=== PATIENT | female | born 1945 | race Caucasian/White ===

== ENCOUNTER → 2018-04-06 12:09 | Outpatient (CLI) | payer MEDICARE, OTHER, SELFPAY ==
[2018-04-06 14:54] LABS: Add Manual Diff / Slide Review NO; Basophils Percent Auto 0.8 % (0-2); Eosinophils Percent Auto 2.2 % (2-4); Hematocrit 41.2 % (36-46); Hemoglobin 14.1 g/dL (12.0-16.0); Mean Corpuscular HGB Conc 34.2 % (30-36); Mean Corpuscular Hemoglobin 32.2 PG (26-34); Monocytes Percent Auto 6.5 % (3-14); Neutrophils Absolute Auto 5600 /uL (3000-5900); Neutrophils Percent Auto 74.5 % (50-75); Platelet Count 249 X10^3/uL (150-400); Red Blood Cell Count 4.38 X10^6/uL (4.0-5.2); Red Cell Distribution Width 13.4 % (11.6-14.8); White Blood Cell Count 7.5 X10^3/uL (4.5-11.0)
[2018-04-06 15:55] LABS: TSH w/ Reflex to FT4 2.33 uIU/mL (0.47-4.68)
== END ==
PROVIDERS: Family Provider Internal Medicine; PCP Internal Medicine; Visit Provider Internal Medicine
DX: I10 Essential (primary) hypertension (principal); E78.5 Hyperlipidemia, unspecified; R60.9 Edema, unspecified
CPT/HCPCS: 36415; 84443; 85025; 85027

== ENCOUNTER → 2018-07-21 09:29 | Outpatient (CLI) | payer MEDICARE, OTHER, SELFPAY ==
--- NOTE | 2018-07-21 | DI.MG.S_ITS ---
BILATERAL DIGITAL SCREENING MAMMOGRAM 3D/2D WITH CAD: 07/21/2018 CLINICAL: Routine screening. Family history of breast cancer. Comparison is made to exams dated: 07/09/2017 mammogram, 06/17/2016 mammogram, and 06/12/2015 mammogram - [facility]. There are scattered fibroglandular elements in both breasts. Current study was also evaluated with a Computer Aided Detection (CAD) system. There is a mole marker on both breasts. There is a linear scar marker on the left breast. No significant masses, calcifications, or other findings are seen in either breast. There has been no significant interval change. IMPRESSION: NEGATIVE There is no mammographic evidence of malignancy. A 1 year screening mammogram is recommended. This exam was interpreted at Station ID: [id number]. NOTE: For mammograms, a report in lay terms will be sent to the patient. Approximately 15% of breast malignancies will not be visualized mammographically. In the management of a palpable breast mass, a negative mammogram must not discourage biopsy of a clinically suspicious lesion. Electronically Signed By: Nilton Godinez M.D. ecl/:07/21/2018 19:03:26 letter sent: Normal Exam ACR BI-RADS Category 1: Negative [id number]
== END ==
PROVIDERS: Family Provider Internal Medicine; PCP Internal Medicine; Visit Provider Internal Medicine
DX: Z12.31 Encounter for screening mammogram for malignant neoplasm of breast (principal); Z80.3 Family history of malignant neoplasm of breast
CPT/HCPCS: 77063; 77067

== ENCOUNTER → 2018-10-29 09:46 | Outpatient (CLI) | payer MEDICARE, OTHER, SELFPAY ==
--- NOTE | 2018-10-29 09:49 | DI.RAD.S_ITS ---
PROCEDURE: XR LUMBAR SPINE MIN 4V INDICATIONS: Lumbosacral spondylosis bilateral L4-5 L5-S1 facets TECHNIQUE: 5 views of the lumbar spine were acquired. COMPARISON: [facility], , -SPINE 2-3 VIEWS, 03/17/2012, 11:12. FINDINGS: Bones: 5 nonrib-bearing vertebrae are present. There is there is trace retrolisthesis of L1 on L2, L2 on L3. Moderate disc space narrowing is present at L5-S1 with foraminal narrowing at this level. Multilevel mild to moderate disc space narrowing is present throughout the lumbar spine. No vertebral body compression fractures. No suspicious bony lesions. Soft tissues: Overlying bowel gas pattern is normal. No suspicious soft tissue calcifications. Oblique images: No pars defects. IMPRESSION: Multilevel degenerative changes most severe at L5-S1, relatively stable compared to prior exam. Dictated by: Gely Reese M.D. on 10/29/2018 at 11:22 Approved by: Gely Reese M.D. on 10/29/2018 at 11:24
== END ==
PROVIDERS: Family Provider Internal Medicine; PCP Internal Medicine; Visit Provider Physical Medicine & Rehabilitation
DX: M47.27 Other spondylosis with radiculopathy, lumbosacral region (principal); M47.26 Other spondylosis with radiculopathy, lumbar region
CPT/HCPCS: 72110; 99214

== ENCOUNTER 2018-11-10 12:54 | Outpatient (CLI) | payer MEDICARE, OTHER, SELFPAY ==
[2018-11-10] VITALS (9 sets, daily range): BP systolic 162–211; BP diastolic 71–107; PULSE 61–77; RESP 16–18; TEMP 36.3; O2SAT 95–100
--- NOTE | 2018-11-10 | DI.RAD.S_ITS ---
PROCEDURE: PAIN L/S FACET INJ/BLK 1ST JOSE DAVID COMPARISON: None. INDICATIONS: Lumbosacral spondylosis FINDINGS: Fluoroscopic spot filming was performed to verify placement of spinal needles at the L4-L5 and L5-S1 level(s), as labeled on the films. Appropriate location(s) of the needle tip(s) was confirmed by injection of iodinated contrast. Dictated by: Dajuan Oates M.D. on 11/10/2018 at 14:58 Approved by: Dajuan Oates M.D. on 11/10/2018 at 15:04
--- NOTE | 2018-11-10 13:55 | PC.NURSE ---
NOTIFIED DR. ARENAS OF HIGH BP 211/105, STATED TO GIVE VERSED AND CONTINUE WITH PROCEDURE.
[2018-11-10] MEDS: MIDAZOLAM 5 MG/5 ML VIAL IV (13:56)
[2018-11-10] MEDS: BUPIVACAINE 0.5% (PF) VIAL 2 ML INJ (14:03)
[2018-11-10] MEDS: LIDOCAINE 1% 20 ML INJ 10 ML INJ (14:03)
[2018-11-10] MEDS: IOPAMIDOL 15 ML VIAL 3 ML INJ (14:03)
[2018-11-10] MEDS: BETAMETHASONE 30 MG/5 ML MDV 12 MG INJ (14:04)
--- NOTE | 2018-11-10 14:11 | PC.NURSE ---
ASSISTING PT OFF TABLE AND TRANSPORTING TO POST PROC AREA IN STABLE CONDITION
--- NOTE | 2018-11-10 14:17 | P.PCN_ITS ---
Procedures Date/Time Date of procedure: 11/10/18 Time of procedure: 14:17 General Procedure description: PREOP DIAGNOSIS 1. FACET ARTHROPATHY 2. AXIAL LBP 3. MULTILEVEL DDD POST OP DIAGNOSIS 1. FACET ARTHROPATHY 2. AXIAL LBP 3. MULTILEVEL DDD PROCEDURES 1. FLUORSCOPICALLY GUIDED CONTRAST CONTROLLED FACET JOINT INJECTIONS BILATERAL L4/5, L5/S1 PHYSICIAN: Dayday Fofana, DO INDICATIONS Aline is referred by Dr. Comer for treatment of Axial LBP FINDINGS Multilevel Facet Arthropathy with Clinically significant axial LBP DESCRIPTION OF PROCEDURE Fluoroscopically guided, contrast-controlled bilateral L4/5, L5/S1 facet joint injections. Following denial of allergy and review of potential side effects and complications, including, but not necessarily limited to, infection, allergic reaction, local tissue breakdown, stroke, temporary or permanent nerve injury, paralysis, and possible , the patient indicated that the patient understood and agreed to proceed. An informed consent document was signed by the patient, witnessed by a nurse, and placed in the patient's chart. Additionally, other treatment options including medications, modalities, and physical therapy were reviewed with the patient. After review of previous anaesthesic history and IV conscious sedation the patient was deemed safe to proceed with todays procedure with IV conscious sedation as ASA class II designation. Safety time-out was performed to confirm patient ID, procedure to be performed and site of procedure. IV sedation was accomplished with a combination of 5mg of Versed was administered by the RN after DO order, titrated to patient comfort during the course of the procedure while the patient remained responsive to all verbal commands In the prone position, following sterile prep and drape of the lumbar region, the posterior aspect of the L4/5, L5/S1 facet joints were identified fluoroscopically. The skin was anesthetized via a 25-gauge 1.5-inch needle with 1% lidocaine solution into the corresponding facet joints. At this point, a 22- gauge 3.5-inch spinal needle was atraumatically introduced and advanced under fluoroscopic guidance into the corresponding facet joints. Following negative aspiration, injections of approximately 0.2-cc of Isovue 200 confirmed interarticular placement without vascular uptake. The identical procedure was then performed at the L4/5, L5/S1 facet joints on the left. Radiological data, including multiple fluoroscopic views of the lumbosacral spine, reveal a spinal needle at the L4/5, L5/S1 facet joints bilaterally. Subsequent views show flow of contrast material both superiorly and inferiorly within the joint space without vascular or intrathecal uptake. At this point, a total of 0.5 cc including a mixture of 0.25cc Marcaine and 0.25cc betamethasone was injected without complication into each of the corresponding facet joints. The patient tolerated the procedure well without signs or symptoms of complications prior to transfer to the recovery area continued monitoring without incident. The patient was then transferred to the recovery area where they were observed for an appropriate period of time after the injection. The patient reported a VAS score of 7 prior to the procedure and a post- procedure VAS of 0. Total Fluoroscopy Time: 20.3 seconds Total Conscious Sedation Time: 24min POST OP INSTRUCTIONS The patient was provided a Pain Log to continue to record their response to the target-specific procedure prior to follow-up visit with their referring physician. Additionally, specific post-injection care instructions and a contact number to our office were provided if concerns arise regarding possible complications associated with the procedure are suspected. Dayday Fofana, Complications: none
--- NOTE | 2018-11-10 15:26 | PC.NURSE ---
pt returned from post procedure via wheelchair and able to get from w/c to chair with standby assist. Resumed monitoring from Rehana AVILEZ.
--- NOTE | 2018-11-11 15:29 | PC.NURSE ---
FOLLOW UP CALL MADE, PT STATES SHE I FEEL GREAT! PT DENIES QUESTIONS/CONCERNS.
== END 2018-11-10 14:41 ==
LOC: RAD 12:58
PROVIDERS: PCP Internal Medicine; Visit Provider Physical Medicine & Rehabilitation
DX: M47.816 Spondylosis without myelopathy or radiculopathy, lumbar region (principal); M47.817 Spondylosis without myelopathy or radiculopathy, lumbosacral region; M54.5 Low back pain; M51.36 Other intervertebral disc degeneration, lumbar region; M51.37 Other intervertebral disc degeneration, lumbosacral region
CPT/HCPCS: 64493; 64494; 99152; J0702; J2250; J3010

== ENCOUNTER 2018-12-07 16:03 | Emergency (ER) | payer MEDICARE, OTHER, SELFPAY ==
--- NOTE | 2018-12-07 16:08 | ED_ITS ---
HPI - Back Pain/Injury General Chief Complaint: Back Pain/Injury Stated Complaint: Low back pain Time Seen by Provider: 12/07/18 16:07 Source: patient Mode of arrival: EMS Limitations: no limitations History of Present Illness HPI Narrative: 73-year-old female with a history of hypertension longstanding history of lower back pain here for evaluation of worsening of her lower back pain. Approximately 1 month ago she underwent lumbar steroid injection. She states that afterwards she felt very well however approximately 1 week ago started having sharp pain in her lower back. She states that this morning she was feeling very well and she laid down to take a nap. She states that she was unable to get up secondary to the pain. She called EMS to help her up. She was brought in here to the emergency department for evaluation. She states that this type of scenario is not new for her. She states she normally sleeps sitting in a chair because she cannot get from a laying to sitting because of the pain. She was able to get up into the gurney by herself here in the emergency department. Was able to ambulate to the bathroom. States she is feeling much better. No urinary symptoms. No saddle anesthesia. Related Data Home Medications Medication Instructions Recorded Confirmed ASPIRIN (Aspirin Low Dose) 81 mg PO #0 09/09/07 09/18/18 ASCORBIC ACID (VITAMIN C) 500 mg PO Q DAY #0 05/03/11 09/18/18 biotin 1 cap PO QDAY #0 09/04/17 09/18/18 cholecalciferol (vitamin D3) 1 tab PO QDAY #0 09/04/17 09/18/18 [Vitamin D3] omega 4-zog-zay-fish oil [Fish Oil] 1 cap PO QDAY #0 09/04/17 09/18/18 esomeprazole magnesium 20 mg 20 mg PO DAILY 07/17/18 09/18/18 capsule,delayed release Disabled Parking Permit 1 ea MISCELLANEOUS DIRECTED 12/07/18 12/07/18 metoprolol succinate 100 mg PO DAILY 12/07/18 12/07/18 olmesartan 40 mg PO DAILY 12/07/18 12/07/18 potassium chloride 10 meq PO DAILY 12/07/18 12/07/18 Previous Rx's Medication Instructions Recorded furosemide 20 mg tablet 20 mg PO QAM #90 tab 04/06/18 celecoxib 200 mg capsule 200 mg PO DAILY #30 cap 02/28/19 acetaminophen-codeine 1 tab PO Q8H PRN #14 tab 12/07/18 [Tylenol-Codeine #3] Allergies Allergy/AdvReac Type Severity Reaction Status Date / Time chlorhexidine [CHLORHEXIDINE] Allergy Mild rash Verified 11/10/18 13:49 THIAGO Inhibitors Allergy Unknown COUGH Verified 11/10/18 13:49 [THIAGO INHIBITORS] ibuprofen [IBUPROFEN] Allergy Unknown EDEMA Verified 11/10/18 13:49 hydrochlorothiazide AdvReac Intermediate hyponatremi Verified 11/10/18 13:49 [HYDROCHLOROTHIAZIDE] a nisoldipine [NISOLDIPINE] AdvReac Intermediate joint pain Verified 11/10/18 13:49 Review of Systems Genitourinary Denies urinary incontinence, Denies urinary hesitancy and Denies urinary urgency Comments: No saddle anesthesia Musculoskeletal Reports back pain Neurologic Comments: Some tingling in her feet Hematologic/Lymphatic Denies easy bleeding and Denies easy bruising [facility] Medical History Essential hypertension (Chronic 06/09/15) Hyperlipidemia (Chronic 04/24/11) 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) Hayfever (Chronic 1969) Chronic cough (Chronic 1990) Peripheral edema (Chronic 07/04/16) Dorsalgia (Chronic 06/14/16) Body mass index (BMI) of 40.1 to 44.9 in adult (Chronic 11/29/16) Morbid obesity due to excess calories (Chronic 11/29/16) Abnormal CXR (chest x-ray) (Resolved 1985) Chicken pox (Resolved) Measles (Resolved) Mumps (Resolved) Rubella (Resolved) Social History marital status: number of children: 2 household members: spouse lives independently: Yes caregiver/support person: No housing: house pets and animals: Yes education level: other occupational status: other Previous occupational history: Teacher rito/uatsdin: [employer] leisure activities: other Smoking Status: Former smoker Tobacco: How many years used: 10 Smokeless tobacco user: other quit status: quit date established second hand exposure: No alcohol intake: current substance use type: does not use Exam Initial Vital Signs Initial Vital Signs: Vital Signs Temperature 98.5 F 12/07/18 16:10 Pulse Rate 70 12/07/18 16:10 Respiratory Rate 18 12/07/18 16:10 Blood Pressure 210/88 H 12/07/18 16:10 Pulse Oximetry 98 12/07/18 16:10 Const General: cooperative, comfortable, well developed, well groomed and No acute distress Orientation: alert, awake and oriented x3 HENMT Head: normal to inspection and normocephalic Resp Effort & Inspection: normal respiratory effort Cardio Rate: regular rate Skin Rashes: no rashes Neuro Cognition: normal cognition Speech: speech normal Gait: other (Was able to walk however needed a cane. This is not new for her.) Extrem General: edema (This is not new for her.) Psych Appearance: grossly normal and well kempt Course Orders Ordered: Discontinued Medications Acetaminophen/Codeine Phosphate (Tylenol #3) 1 tab PO NOW ONE Stop: 12/07/18 17:02 Vital Signs - 8 hr 12/07/18 16:10 Temperature 98.5 F Pulse Rate 70 Respiratory Rate 18 Blood Pressure 210/88 H Pulse Oximetry 98 MDM - Back Pain/Injury MDM Narrative Medical decision making narrative: Patient states that she feels better after being here in the emergency department. She is not currently on any oral pain medication. She did take an Aleve this morning. Will send home some Tylenol 3. It seems that what happened to her earlier today with lying down and then sitting up is what happens to her every time she is lying down. She states that she was feeling better this morning and that is why she laid down to take a nap. I have low suspicion for fracture, cauda equina, metastasis, AAA. Will hold off further workup for now. They are given return precautions. They expressed understanding and agreement with plan. Discharge Plan Departure Patient Disposition: Home Clinical Impression: Chronic lower back pain Qualifiers: Back pain laterality: unspecified Sciatica presence: without sciatica Qualified Code(s): M54.5 - Low back pain Instructions: DI for Low Back Pain Activity Restrictions/Additional Instructions: Take all of her medication as needed. Contact your spine provider to schedule a follow-up. Return to the emergency department for any new or worsening symptoms Prescriptions: New acetaminophen-codeine [Tylenol-Codeine #3] 300-30 mg tablet 1 tab PO Q8H PRN (Reason: pain) Qty: 14 RF: 0 No Action ASPIRIN (Aspirin Low Dose) 81 mg PO Qty: 0 RF: 0 ASCORBIC ACID (VITAMIN C) 500 mg PO Q DAY Qty: 0 RF: 0 biotin 1 mg Capsule 1 cap PO QDAY Qty: 0 RF: 0 cholecalciferol (vitamin D3) [Vitamin D3] 1,000 unit Tablet 1 tab PO QDAY Qty: 0 RF: 0 omega 4-epk-bwz-fish oil [Fish Oil] 1,000 mg (120 mg-180 mg) Capsule 1 cap PO QDAY Qty: 0 RF: 0 esomeprazole magnesium [Nexium] 20 mg capsule,delayed release(DR/EC) 20 mg PO DAILY RF: 0 furosemide 20 mg tablet 20 mg PO QAM Qty: 90 RF: 3 potassium chloride 10 mEq capsule, extended release 10 meq PO DAILY RF: 0 metoprolol succinate 100 mg tablet extended release 24 hr 100 mg PO DAILY RF: 0 olmesartan 40 mg tablet 40 mg PO DAILY RF: 0 Disabled Parking Permit 1 ea miscellaneous DIRECTED RF: 0 celecoxib [Celebrex] 200 mg capsule 200 mg PO DAILY Qty: 30 RF: 2 Referrals: Dario Comer MD [Primary Care Provider] -
[2018-12-07 16:10] VITALS: BP 210/88; PULSE 70; RESP 18; TEMP 36.9; O2SAT 98; BMI 23.3
== END 2018-12-07 17:49 | disposition home or self-care (01) ==
PROVIDERS: Emergency Provider Emergency Medicine; PCP Internal Medicine
DX: M54.5 Low back pain (principal)
CPT/HCPCS: 99282

== ENCOUNTER → 2019-01-05 11:23 | Outpatient (CLI) | payer MEDICARE, OTHER, SELFPAY ==
--- NOTE | 2019-01-05 11:25 | DI.MRI.S_ITS ---
PROCEDURE: MR LUMBAR SPINE WO CON INDICATIONS: The patient gives a history of spinal stenosis. TECHNIQUE: Noncontrast sagittal T1 spin echo and T2 fast echo, sagittal STIR, axial T1 and T2 fast spin echo through the lumbar spine. In cases with scoliosis, additional coronal T2 fast spin echo may be performed. COMPARISON: [facility], MR, L-SPINE WITHOUT CONTRAST, 12/12/2015, 14:23. [facility], CR, XR LUMBAR SPINE MIN 4V, 10/29/2018, 9:48. FINDINGS: Image quality: Excellent. Alignment and Curvature: There is normal bony alignment. Bone Marrow: Marrow is of normal overall signal. No acute vertebral body compression fractures. Spinal Cord: Conus medullaris terminates at the T12-L1 level. Visualized cord demonstrates normal signal and size. Paraspinous Soft Tissues: No paravertebral masses. T12-L1: Normal appearance. L1-L2: The disc height is well-preserved. Loss of disc signal is seen at this level. No significant neural foraminal or central canal narrowing can be seen. Stable from the prior study. L2-L3: The disc height and disc signal are relatively well-preserved. Mild generalized disc bulge is seen. No significant neural foraminal or central canal narrowing can be seen. No significant change from the prior. L3-L4: Mild loss of disc height is seen. Loss of disc signal is seen. Mild generalized disc bulge is seen. Mild facet joint hypertrophy is seen. No significant neural foraminal or central canal narrowing can be seen. No significant change from the prior. L4-L5: The disc height is well-preserved. Loss of disc signal is seen at this level. Mild to moderate disc bulge is seen, which is eccentric to the right. There is moderate left-sided and moderate to severe right-sided facet hypertrophy seen. Minimal bilateral neural foraminal narrowing is seen. Mild central canal narrowing is seen. Stable from the prior study. L5-S1: The disc height is well-preserved. Loss of disc signal is seen at this level. No significant disc bulge is seen. [id number] facet hypertrophy is seen. No neural foraminal narrowing is seen. No central canal narrowing. No significant change from the prior. IMPRESSION: Multiple levels of lumbar spine degenerative change are seen, which are stable compared to 2016. Dictated by: Parker Bell M.D. on 01/05/2019 at 14:27 Approved by: Parker Bell M.D. on 01/05/2019 at 14:34
== END ==
PROVIDERS: PCP Internal Medicine; Visit Provider Physical Medicine & Rehabilitation
DX: M48.061 Spinal stenosis, lumbar region without neurogenic claudication (principal); M47.26 Other spondylosis with radiculopathy, lumbar region; M47.27 Other spondylosis with radiculopathy, lumbosacral region
CPT/HCPCS: 72148

== ENCOUNTER → 2019-01-13 09:42 | Outpatient (CLI) | payer MEDICARE, OTHER, SELFPAY ==
[2019-01-13 10:49] LABS: Alanine Aminotransferase 24 IU/L (9-52); Albumin 4.2 g/dL (3.5-5.0); Albumin Globulin Ratio 1.5 (1.0-2.8); Alkaline Phosphatase 89 U/L (38-126); Aspartate Aminotransferase 18 IU/L (14-36); BUN Creatinine Ratio 21.4 (6-22); Bilirubin Total 0.5 mg/dL (0.2-1.3); Blood Urea Nitrogen 15 mg/dL (7-17); Calcium 9.8 mg/dL (8.4-10.2); Carbon Dioxide 30 mmol/L (22-32); Chloride 93 mmol/L (98-107); Estimated Glomerular Filt Rate > 60.0 mL/min (>60); Globulin 2.8 g/dL (1.7-4.1); Glucose 113 mg/dL (80-110); HEMOLYSIS < 15 (0-50); Potassium 4.8 mmol/L (3.4-5.1); Sodium 133 mmol/L (137-145)
== END ==
PROVIDERS: PCP Internal Medicine; Visit Provider Internal Medicine
DX: I10 Essential (primary) hypertension (principal)
CPT/HCPCS: 36415; 80053

== ENCOUNTER 2019-03-17 08:15 | Outpatient (RCR) | payer MEDICARE, OTHER, SELFPAY ==
--- NOTE | 2019-01-20 17:40 | PT.OPPOC ---
Current Diagnoses Other spondylosis with radiculopathy, lumbosacral region (01/20/19) Spondylosis without myelopathy or radiculopathy, lumbar region (01/20/19) Provider Visit Care Team Role Provider Type Dario Comer MD Primary Care Provider Physician Specialty: Internal Medicine Address: [address] [place] [address], [id number] Email: [email or web address] Dayday Fofana DO Attending Provider Physician Specialty: Physiatry Pain Management Address: [address] [place] [address], [id number] Email: Plan Of Care PT-OP-T Assessment and Plan Start: 01/20/19 17:38 Freq: Status: Active Protocol: Document 01/20/19 17:40 EA (Rec: 01/21/19 16:10 EA [id number]) Physical Therapy Assessment Rehab Potential Rehabilitation Potential Fair Evaluation Complexity Number of Personal Factors/Comorbidities 1-2 Number of Body Systems Impaired 1-2 Clinical Presentation at Evaluation Evolving Impairments Impairments Activity Tolerance Functional Activities Gait Pain Posture ROM Soft Tissue Mobility Strength Goals Three Impairment Impaired posture General Contractor Goal (LTG) Patient will exhibit near to normal posture to decrease trunk muscular imbalance LTG Duration 5 wks Four Impairment Unable to perform sitting <-> supine in bed General Contractor Goal (LTG) Patient will perform sit <-> supine in bed with good mechanics to enable patient to sleep on her bed. LTG Duration 3 wks Two Impairment No HEP in place General Contractor Goal (LTG) Patient will perform indep HEP LTG Duration 3 wks One Impairment Oswetry score of 35/50 General Contractor Goal (LTG) Patient will exhibit Oswestry score of < 25/50 to enhance quality of life LTG Duration 5 wks Assessment Summary Assessment Pleasant 73 y/o F patient with a referring diagnosis of lumbosacral spondylosis. Today patient exhibits inability to position from sitting to supine in bed due to fear of severe low back spasms. Tests and assessment reveals stiff back with forward trunk posture, decreased lumbar spine mobility with hypertonic paralumbars, upper gluteals muscles, and grade 2/4 tenderness at right L4-L5 and S1 facets joints region. Special tests not perform due to difficulty in lying position. MMT and lumbar nerve reflexes shows at least WFL. Due to above mention dysfunction, patient is impaired to perform task that is supposed to be normal to her age and physique. Patient would greatly benefit with skilled PT to improve quality of life. Physical Therapy Plan Frequency and Duration Frequency of Treatment 2x/Week Duration of Treatment 8 wks Plan of Care Start Date 01/20/19 Plan of Care End Date 03/17/19 Therapeutic Interventions Therapeutic Interventions Aquatic Therapy Home Exercise Program Joint Mobilizations Manual Therapy Patient/Caregiver Education Self-Care/Home Management Soft Tissue Mobilization Taping Therapeutic Activities Therapeutic Exercises Modalities Cold Pack/Ice Massage Electric Stimulation Hot Packs Next Visit Focus/Plan Next Note Type Treatment Note Next Visit Plan Provide HEP images for lumbars stretch. Perform bed supine < -> sit rolling mobility; to start with inclined position first. Modalities and manual PT to decrease symptoms. Plan of Care Dates Plan of Care Start Date 01/20/19 Plan of Care End Date 03/17/19 Please Sign and Return: I have reviewed this Plan of Care and certify that the skilled therapy services above are required to meet the patient?s needs. Physician Signature Date Printed Name and Credentials Clinical Instructor Signature Printed Name and Credentials
--- NOTE | 2019-01-20 17:40 | PT.OIE ---
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) Body mass index (BMI) of 40.1 to 44.9 in adult (Chronic 11/29/16) Morbid obesity due to excess calories (Chronic 11/29/16) Abnormal CXR (chest x-ray) (Resolved 1985) Chicken pox (Resolved) Hyperlipidemia (Resolved 04/24/11) Measles (Resolved) Mumps (Resolved) Rubella (Resolved) Past Surgical History (Last Reviewed 01/21/19 @ 14:18 by Dario Comer MD) History of lung surgery (Resolved 1985) History of tonsillectomy (Resolved 1950) Status post hysterectomy (Resolved 1990) Provider Visit Care Team Role Provider Type Dario Comer MD Primary Care Provider Physician Specialty: Internal Medicine Address: [address] [place] [address], [id number] Email: [email or web address] Dayday Fofana DO Attending Provider Physician Specialty: Physiatry Pain Management Address: [address] [place] [address] Email: Physical Therapy Initial Evaluation PT-OP-A Visit Information Start: 01/20/19 17:38 Freq: Status: Active Protocol: Document 01/20/19 17:40 MARIA ELENA (Rec: 01/21/19 16:10 EA [id number]) Out-Patient Physical Therapy Visit Information Visit Information Visit Type Initial Evaluation Visit Start Time 10:30 Visit Stop Time 11:15 Total Visit Minutes 40 Visit Number 1 Evaluation Information Evaluation Date 01/20/19 Precautions Precautions Supine to sit or vise versa would cause severe low back muscle cramp per patient. She has history of E.R due to the same situation. PT-OP-B Current Condition Start: 01/20/19 17:38 Freq: Status: Active Protocol: Document 01/20/19 17:40 EA (Rec: 01/21/19 16:10 EA [id number]) Current Condition History of Current Condition Onset Date Chronic 10 years ago Current Complaints Low back pain (localized) History of Current Condition Present condition of low back pain has been chronic but exacerbated after last lumbar injection on . Pt reports [facility] where she was brought up to E.R. due to severe lumbar spasm from just getting up in the bed. She denies any numbness or loss of strength to both LE's. She denies back surgery. She reports that the most comfortable resting position is now using her recliner. Prior Treatments and Tests MRI 2 wks ago from today's date lumbar treatment injections Future Testing and Treatments Planned None identified. Treatment Goals Patient/Caregiver Goals Patient would like to get rid of her low back pain so she can sleep on her bed. Prior Functional Status Baseline Function- ADL's Independent Baseline Function- Mobility Independent Baseline Function- Gait More than a block using a walker Baseline Function- Work/School Retired Baseline Function- Other No difficulty getting in and out of the bed prior to last severe attack Current Functional Impairments (Reported) Functional Limitations- ADL's Independent but limited with bending and reaching with spinal rotation Functional Limitations- Mobility/Gait Unable to walk > a block with a walker Functional Limitations- Work/School Retired Functional Limitations- Other Unable to lay down on her bed due to fear of severe low back pain. Personal Factors Other Personal Factors That May Effect HTN, lumbar joint Therapy/Recovery degenerative joint disease. PT-OP-C Subjective Start: 01/20/19 17:38 Freq: Status: Active Protocol: Document 01/20/19 17:40 EA (Rec: 01/21/19 16:10 EA [id number]) OP-PT Subjective Patient Comments Patient Comments I just want be able to get in and out of my bed. Patient Reported Progress Same Patient Questionnaires Oswestry Low Back Index Oswestry Score 35/50 Oswestry Impairment 60 to 79% Impaired (Score 60- 79) OP-PT Pain Assessment Pain Assessment Grid Paper Pain Assessment Grid Completed Yes Location Right Lower Posterior Back Pain Location Details 6 Scale Used Numeric (1 - 10) Description Cramping Spasm Tender Frequency Intermittent Pain Aggravating Factors Position Standing Other Pain Aggravating Factors Supine <-> sit Pain Alleviating Factors Medication Position Patient Stated Pain Goal 1 Pain Behaviors Pain Behaviors Wincing PT-OP-G Mobility & Gait Start: 01/20/19 17:38 Freq: Status: Active Protocol: Document 01/20/19 17:40 EA (Rec: 01/21/19 16:10 EA [id number]) OP Mobility Evaluation Bed Mobility Rolling Requires assist Supine to and from Sit unable Transfers Sit to Stand Indep Bed to Chair Transfers indep Car Transfers indep Floor Transfers Unable OP Gait Assessment Gait Gait Assistance Required: Independent Able to Maintain Weight Bearing Status Yes During Gait Assistive Devices Assistive Device Straight Cane Gait Deviations General Gait Pattern Flexed Trunk Factors Limiting Gait Function Factors Limiting Gait Function Limited Range of Motion Pain Comments Gait Comments Stiffed pelvic gait. PT-OP-J Posture/Palpation/Skin Start: 01/20/19 17:38 Freq: Status: Active Protocol: Document 01/20/19 17:40 EA (Rec: 01/21/19 16:10 EA [id number]) Posture Evaluation Comments Posture Comments Forward head, rounded shoulder , flex trunk with stiffed pelvis Palpation Assessment Location One Palpation Location Paralumbars, QL, upper gluteals Palpation Findings Soft Tissue Tightness Spasm Tenderness PT-OP-K Range of Motion Start: 01/20/19 17:38 Freq: Status: Active Protocol: Document 01/20/19 17:40 EA (Rec: 01/21/19 16:10 EA [id number]) Lumbar Spine Range of Motion Lumbar Spine Active Percentage Testing Position sitting and standing Flexion 60 Extension 100 Rotation Left 55 Rotation Right 55 Lateral Flexion Left 60 Lateral Flexion Right 60 ROM Limitations Soft Tissue Tightness Pain Hip Goniometric Range of Motion Hip Measured in Degrees Right Active Hip ROM WFL Yes Left Active Hip ROM WFL Yes Knee Goniometric Range of Motion Knee Measured in Degrees Right Knee ROM WFL Yes Left Knee ROM WFL Yes PT-OP-M Strength Start: 01/20/19 17:38 Freq: Status: Active Protocol: Document 01/20/19 17:40 EA (Rec: 01/21/19 16:10 EA [id number]) Trunk Strength Trunk Manual Muscle Testing Core Stabilization Unable to test in supine position due to fear of severe attack. Patient is able to hold manual resistance in sitting position in all direction. Hip Strength Hip Manual Muscle Testing Right Reason Not Measured WFL Left Reason Not Measured WFL PT-OP-Q Treatments Start: 01/20/19 17:38 Freq: Status: Active Protocol: Document 01/20/19 17:40 EA (Rec: 01/21/19 16:10 EA [id number]) Therapeutic Exercises Other Exercises 1 Other Exercise Name Supine <-> sit mobility Reps/Minutes x 2 reps with manuall assist Comments use wedge Self-Care/Home Management Treatment Education Patient Education Body Mechanics Home Exercise Program Pain Management Posture PT-OP-T Assessment and Plan Start: 01/20/19 17:38 Freq: Status: Active Protocol: Document 01/20/19 17:40 EA (Rec: 01/21/19 16:10 EA [id number]) Physical Therapy Assessment Rehab Potential Rehabilitation Potential Fair Evaluation Complexity Number of Personal Factors/Comorbidities 1-2 Number of Body Systems Impaired 1-2 Clinical Presentation at Evaluation Evolving Impairments Impairments Activity Tolerance Functional Activities Gait Pain Posture ROM Soft Tissue Mobility Strength Goals Three Impairment Impaired posture Cardiology Tech Goal (LTG) Patient will exhibit near to normal posture to decrease trunk muscular imbalance LTG Duration 5 wks Four Impairment Unable to perform sitting <-> supine in bed Senior Care Goal (LTG) Patient will perform sit <-> supine in bed with good mechanics to enable patient to sleep on her bed. LTG Duration 3 wks Two Impairment No HEP in place Cardiology Tech Goal (LTG) Patient will perform indep HEP LTG Duration 3 wks One Impairment Oswetry score of 35/50 Senior Care Goal (LTG) Patient will exhibit Oswestry score of < 25/50 to enhance quality of life LTG Duration 5 wks Assessment Summary Assessment Pleasant 73 y/o F patient with a referring diagnosis of lumbosacral spondylosis. Today patient exhibits inability to position from sitting to supine in bed due to fear of severe low back spasms. Tests and assessment reveals stiff back with forward trunk posture, decreased lumbar spine mobility with hypertonic paralumbars, upper gluteals muscles, and grade 2/4 tenderness at right L4-L5 and S1 facets joints region. Special tests not perform due to difficulty in lying position. MMT and lumbar nerve reflexes shows at least WFL. Due to above mention dysfunction, patient is impaired to perform task that is supposed to be normal to her age and physique. Patient would greatly benefit with skilled PT to improve quality of life. Physical Therapy Plan Frequency and Duration Frequency of Treatment 2x/Week Duration of Treatment 8 wks Plan of Care Start Date 01/20/19 Plan of Care End Date 03/17/19 Therapeutic Interventions Therapeutic Interventions Aquatic Therapy Home Exercise Program Joint Mobilizations Manual Therapy Patient/Caregiver Education Self-Care/Home Management Soft Tissue Mobilization Taping Therapeutic Activities Therapeutic Exercises Modalities Cold Pack/Ice Massage Electric Stimulation Hot Packs Next Visit Focus/Plan Next Note Type Treatment Note Next Visit Plan Provide HEP images for lumbars stretch. Perform bed supine < -> sit rolling mobility; to start with inclined position first. Modalities and manual PT to decrease symptoms.
--- NOTE | 2019-01-26 12:30 | PT.OTN ---
Current Diagnoses Other spondylosis with radiculopathy, lumbosacral region (01/26/19) Spondylosis without myelopathy or radiculopathy, lumbar region (01/26/19) Physical Therapy Treatment Note PT-OP-A Visit Information Start: 01/20/19 17:38 Freq: Status: Active Protocol: Document 01/26/19 12:22 EA (Rec: 01/26/19 12:30 EA [id number]) Out-Patient Physical Therapy Visit Information Visit Information Visit Type Treatment Note Visit Start Time 09:45 Visit Stop Time 10:38 Total Visit Minutes 53 Visit Number 2 PT-OP-B Current Condition Start: 01/20/19 17:38 Freq: Status: Active Protocol: Document 01/20/19 17:40 EA (Rec: 01/21/19 16:10 EA [id number]) Current Condition History of Current Condition Onset Date Chronic 10 years ago Current Complaints Low back pain (localized) History of Current Condition Present condition of low back pain has been chronic but exacerbated after last lumbar injection on . Pt reports [facility] where she was brought up to E.R. due to severe lumbar spasm from just getting up in the bed. She denies any numbness or loss of strength to both LE's. She denies back surgery. She reports that the most comfortable resting position is now using her recliner. Prior Treatments and Tests MRI 2 wks ago from today's date lumbar treatment injections Future Testing and Treatments Planned None identified. Treatment Goals Patient/Caregiver Goals Patient would like to get rid of her low back pain so she can sleep on her bed. Prior Functional Status Baseline Function- ADL's Independent Baseline Function- Mobility Independent Baseline Function- Gait More than a block using a walker Baseline Function- Work/School Retired Baseline Function- Other No difficulty getting in and out of the bed prior to last severe attack Current Functional Impairments (Reported) Functional Limitations- ADL's Independent but limited with bending and reaching with spinal rotation Functional Limitations- Mobility/Gait Unable to walk > a block with a walker Functional Limitations- Work/School Retired Functional Limitations- Other Unable to lay down on her bed due to fear of severe low back pain. Personal Factors Other Personal Factors That May Effect HTN, lumbar joint Therapy/Recovery degenerative joint disease. PT-OP-C Subjective Start: 01/20/19 17:38 Freq: Status: Active Protocol: Document 01/26/19 12:22 EA (Rec: 01/26/19 12:30 EA [id number]) OP-PT Subjective Patient Comments Patient Comments Pt reports that she is now able to sleep on her bed; states has to wake up though due to increased of low back pain but able to sleep after placing heat to low back area. Patient Reported Progress Improving PT-OP-G Mobility & Gait Start: 01/20/19 17:38 Freq: Status: Active Protocol: Document 01/20/19 17:40 EA (Rec: 01/21/19 16:10 EA [id number]) OP Mobility Evaluation Bed Mobility Rolling Requires assist Supine to and from Sit unable Transfers Sit to Stand Indep Bed to Chair Transfers indep Car Transfers indep Floor Transfers Unable OP Gait Assessment Gait Gait Assistance Required: Independent Able to Maintain Weight Bearing Status Yes During Gait Assistive Devices Assistive Device Straight Cane Gait Deviations General Gait Pattern Flexed Trunk Factors Limiting Gait Function Factors Limiting Gait Function Limited Range of Motion Pain Comments Gait Comments Stiffed pelvic gait. PT-OP-J Posture/Palpation/Skin Start: 01/20/19 17:38 Freq: Status: Active Protocol: Document 01/20/19 17:40 EA (Rec: 01/21/19 16:10 EA [id number]) Posture Evaluation Comments Posture Comments Forward head, rounded shoulder , flex trunk with stiffed pelvis Palpation Assessment Location One Palpation Location Paralumbars, QL, upper gluteals Palpation Findings Soft Tissue Tightness Spasm Tenderness PT-OP-K Range of Motion Start: 01/20/19 17:38 Freq: Status: Active Protocol: Document 01/20/19 17:40 EA (Rec: 01/21/19 16:10 EA [id number]) Lumbar Spine Range of Motion Lumbar Spine Active Percentage Testing Position sitting and standing Flexion 60 Extension 100 Rotation Left 55 Rotation Right 55 Lateral Flexion Left 60 Lateral Flexion Right 60 ROM Limitations Soft Tissue Tightness Pain Hip Goniometric Range of Motion Hip Measured in Degrees Right Active Hip ROM WFL Yes Left Active Hip ROM WFL Yes Knee Goniometric Range of Motion Knee Measured in Degrees Right Knee ROM WFL Yes Left Knee ROM WFL Yes PT-OP-M Strength Start: 01/20/19 17:38 Freq: Status: Active Protocol: Document 01/20/19 17:40 EA (Rec: 01/21/19 16:10 EA [id number]) Trunk Strength Trunk Manual Muscle Testing Core Stabilization Unable to test in supine position due to fear of severe attack. Patient is able to hold manual resistance in sitting position in all direction. Hip Strength Hip Manual Muscle Testing Right Reason Not Measured WFL Left Reason Not Measured WFL PT-OP-Q Treatments Start: 01/20/19 17:38 Freq: Status: Active Protocol: Document 01/26/19 12:22 EA (Rec: 01/26/19 12:30 EA [id number]) Cardio Equipment Recumbent Stepper (Sci-Fit) Duration (Minutes) 7 Resistance 1 Seat Position 13 Therapeutic Exercises Supine Exercises 4 Supine Exercise Name PPT with heel slides Side bilateral Reps/Minutes x 5 reps each x 2 sets 3 Supine Exercise Name PPT Side bilateral Reps/Minutes x 5SH x 10 reps 2 Supine Exercise Name Low trunk rot stretch Reps/Minutes x 30SH x 2 Comments Gentle up to tolerance 1 Supine Exercise Name Hamstring stretch: gentle Reps/Minutes x 30SH x 2 Other Exercises 1 Other Exercise Name Wall posture then to PPT Reps/Minutes x 5SH x 10 reps Manual Therapy Treatment Soft Tissue Mobilization 1 Mobilization Type Myofascial Release Rolling Strumming Sustained Pressure Trigger Point Release Intensity/Depth Moderate Body Position Sitting Comments leaning to the table PT-OP-R Modalities Start: 01/20/19 17:38 Freq: Status: Active Protocol: Document 01/26/19 12:22 EA (Rec: 01/26/19 12:30 EA [id number]) Electric Stimulation Electric Stimulation Interferential Current (IFC) Body Location right paraspinals, SI joint Duration (Minutes) 15 Intensity 16 Contraction Type Normal Patient Position Sitting Combined With Heat/Cold Hot Pack PT-OP-T Assessment and Plan Start: 01/20/19 17:38 Freq: Status: Active Protocol: Document 01/26/19 12:22 EA (Rec: 01/26/19 12:30 EA [id number]) Physical Therapy Assessment Assessment Summary Assessment Pt tolerated treatment well today with wedge support to trunk while in supine position . I recommended continue HEP which patient agreed to perform. Physical Therapy Plan Next Visit Focus/Plan Next Note Type Treatment Note Next Visit Plan Continue with current plan.
--- NOTE | 2019-02-02 09:43 | PT.OTN ---
Current Diagnoses Other spondylosis with radiculopathy, lumbosacral region (02/02/19) Spondylosis without myelopathy or radiculopathy, lumbar region (02/02/19) Physical Therapy Treatment Note PT-OP-A Visit Information Start: 01/20/19 17:38 Freq: Status: Active Protocol: Document 02/02/19 09:00 EA (Rec: 02/02/19 09:04 EA [id number]) Out-Patient Physical Therapy Visit Information Visit Information Visit Type Treatment Note Visit Start Time 08:15 Visit Stop Time 09:48 Total Visit Minutes 53 Visit Number 3 PT-OP-B Current Condition Start: 01/20/19 17:38 Freq: Status: Active Protocol: Document 01/20/19 17:40 EA (Rec: 01/21/19 16:10 EA [id number]) Current Condition History of Current Condition Onset Date Chronic 10 years ago Current Complaints Low back pain (localized) History of Current Condition Present condition of low back pain has been chronic but exacerbated after last lumbar injection on . Pt reports [facility] where she was brought up to E.R. due to severe lumbar spasm from just getting up in the bed. She denies any numbness or loss of strength to both LE's. She denies back surgery. She reports that the most comfortable resting position is now using her recliner. Prior Treatments and Tests MRI 2 wks ago from today's date lumbar treatment injections Future Testing and Treatments Planned None identified. Treatment Goals Patient/Caregiver Goals Patient would like to get rid of her low back pain so she can sleep on her bed. Prior Functional Status Baseline Function- ADL's Independent Baseline Function- Mobility Independent Baseline Function- Gait More than a block using a walker Baseline Function- Work/School Retired Baseline Function- Other No difficulty getting in and out of the bed prior to last severe attack Current Functional Impairments (Reported) Functional Limitations- ADL's Independent but limited with bending and reaching with spinal rotation Functional Limitations- Mobility/Gait Unable to walk > a block with a walker Functional Limitations- Work/School Retired Functional Limitations- Other Unable to lay down on her bed due to fear of severe low back pain. Personal Factors Other Personal Factors That May Effect HTN, lumbar joint Therapy/Recovery degenerative joint disease. PT-OP-C Subjective Start: 01/20/19 17:38 Freq: Status: Active Protocol: Document 02/02/19 09:00 EA (Rec: 02/02/19 09:04 EA [id number]) OP-PT Subjective Patient Comments Patient Comments Last session feels good to my back states she is now able to sleep on her side for almost 6 hours. PT-OP-G Mobility & Gait Start: 01/20/19 17:38 Freq: Status: Active Protocol: Document 01/20/19 17:40 EA (Rec: 01/21/19 16:10 EA [id number]) OP Mobility Evaluation Bed Mobility Rolling Requires assist Supine to and from Sit unable Transfers Sit to Stand Indep Bed to Chair Transfers indep Car Transfers indep Floor Transfers Unable OP Gait Assessment Gait Gait Assistance Required: Independent Able to Maintain Weight Bearing Status Yes During Gait Assistive Devices Assistive Device Straight Cane Gait Deviations General Gait Pattern Flexed Trunk Factors Limiting Gait Function Factors Limiting Gait Function Limited Range of Motion Pain Comments Gait Comments Stiffed pelvic gait. PT-OP-J Posture/Palpation/Skin Start: 01/20/19 17:38 Freq: Status: Active Protocol: Document 01/20/19 17:40 EA (Rec: 01/21/19 16:10 EA [id number]) Posture Evaluation Comments Posture Comments Forward head, rounded shoulder , flex trunk with stiffed pelvis Palpation Assessment Location One Palpation Location Paralumbars, QL, upper gluteals Palpation Findings Soft Tissue Tightness Spasm Tenderness PT-OP-K Range of Motion Start: 01/20/19 17:38 Freq: Status: Active Protocol: Document 01/20/19 17:40 EA (Rec: 01/21/19 16:10 EA [id number]) Lumbar Spine Range of Motion Lumbar Spine Active Percentage Testing Position sitting and standing Flexion 60 Extension 100 Rotation Left 55 Rotation Right 55 Lateral Flexion Left 60 Lateral Flexion Right 60 ROM Limitations Soft Tissue Tightness Pain Hip Goniometric Range of Motion Hip Measured in Degrees Right Active Hip ROM WFL Yes Left Active Hip ROM WFL Yes Knee Goniometric Range of Motion Knee Measured in Degrees Right Knee ROM WFL Yes Left Knee ROM WFL Yes PT-OP-M Strength Start: 01/20/19 17:38 Freq: Status: Active Protocol: Document 01/20/19 17:40 EA (Rec: 01/21/19 16:10 EA [id number]) Trunk Strength Trunk Manual Muscle Testing Core Stabilization Unable to test in supine position due to fear of severe attack. Patient is able to hold manual resistance in sitting position in all direction. Hip Strength Hip Manual Muscle Testing Right Reason Not Measured WFL Left Reason Not Measured WFL PT-OP-Q Treatments Start: 01/20/19 17:38 Freq: Status: Active Protocol: Document 02/02/19 09:00 EA (Rec: 02/02/19 09:04 EA [id number]) Cardio Equipment Recumbent Stepper (Sci-Fit) Duration (Minutes) 10 Resistance 2 Seat Position 13 Other somewhat hard intensity: watch for SOB Therapeutic Exercises Supine Exercises 6 Supine Exercise Name Gentle hamstring and periformis stretch Reps/Minutes x 15 SH x 3 reps 5 Supine Exercise Name Gentle low back rotation as tolerated range Reps/Minutes x 15 reps 4 Supine Exercise Name PPT with heel slides Side bilateral Reps/Minutes x 5 reps each x 2 sets 3 Supine Exercise Name PPT Side bilateral Reps/Minutes x 5SH x 10 reps 2 Supine Exercise Name Low trunk rot stretch Reps/Minutes x 30SH x 2 Comments Gentle up to tolerance 1 Supine Exercise Name Hamstring stretch: gentle Reps/Minutes x 30SH x 2 Other Exercises 1 Other Exercise Name Wall posture then to PPT Reps/Minutes x 5SH x 10 reps Manual Therapy Treatment Soft Tissue Mobilization 1 Mobilization Type Myofascial Release Rolling Strumming Sustained Pressure Trigger Point Release Intensity/Depth Moderate Body Position Sitting Comments leaning to the table PT-OP-R Modalities Start: 01/20/19 17:38 Freq: Status: Active Protocol: Document 02/02/19 09:00 EA (Rec: 02/02/19 09:04 EA [id number]) Electric Stimulation Electric Stimulation Interferential Current (IFC) Body Location right paraspinals, SI joint Duration (Minutes) 15 Intensity 17 Contraction Type Normal Patient Position Sitting Combined With Heat/Cold Hot Pack PT-OP-T Assessment and Plan Start: 01/20/19 17:38 Freq: Status: Active Protocol: Document 02/02/19 09:00 EA (Rec: 02/02/19 09:04 EA [id number]) Physical Therapy Assessment Assessment Summary Assessment Pt tolerated treatment well and low back rotation exercises. Physical Therapy Plan Next Visit Focus/Plan Next Note Type Treatment Note Next Visit Plan Continue with current plan.
--- NOTE | 2019-02-04 09:38 | PT.OTN ---
Current Diagnoses Other spondylosis with radiculopathy, lumbosacral region (02/04/19) Spondylosis without myelopathy or radiculopathy, lumbar region (02/04/19) Physical Therapy Treatment Note PT-OP-A Visit Information Start: 01/20/19 17:38 Freq: Status: Active Protocol: Document 02/04/19 08:57 EA (Rec: 02/04/19 09:03 EA [id number]) Out-Patient Physical Therapy Visit Information Visit Information Visit Type Treatment Note Visit Start Time 08:15 Visit Stop Time 08:55 Total Visit Minutes 40 Visit Number 4 PT-OP-B Current Condition Start: 01/20/19 17:38 Freq: Status: Active Protocol: Document 01/20/19 17:40 EA (Rec: 01/21/19 16:10 EA [id number]) Current Condition History of Current Condition Onset Date Chronic 10 years ago Current Complaints Low back pain (localized) History of Current Condition Present condition of low back pain has been chronic but exacerbated after last lumbar injection on . Pt reports incendence where she was brought up to E.R. due to severe lumbar spasm from just getting up in the bed. She denies any numbness or loss of strength to both LE's. She denies back surgery. She reports that the most comfortable resting position is now using her recliner. Prior Treatments and Tests MRI 2 wks ago from today's date lumbar treatment injections Future Testing and Treatments Planned None identified. Treatment Goals Patient/Caregiver Goals Patient would like to get rid of her low back pain so she can sleep on her bed. Prior Functional Status Baseline Function- ADL's Independent Baseline Function- Mobility Independent Baseline Function- Gait More than a block using a walker Baseline Function- Work/School Retired Baseline Function- Other No difficulty getting in and out of the bed prior to last severe attack Current Functional Impairments (Reported) Functional Limitations- ADL's Independent but limited with bending and reaching with spinal rotation Functional Limitations- Mobility/Gait Unable to walk > a block with a walker Functional Limitations- Work/School Retired Functional Limitations- Other Unable to lay down on her bed due to fear of severe low back pain. Personal Factors Other Personal Factors That May Effect HTN, lumbar joint Therapy/Recovery degenerative joint disease. PT-OP-C Subjective Start: 01/20/19 17:38 Freq: Status: Active Protocol: Document 02/04/19 08:57 EA (Rec: 02/04/19 09:03 EA [id number]) OP-PT Subjective Patient Comments Patient Comments Pt reports unable to sleep well last night and stayed on her recliner with constant heat appilcation due to increased low back pain. Patient Reported Progress Improving PT-OP-G Mobility & Gait Start: 01/20/19 17:38 Freq: Status: Active Protocol: Document 01/20/19 17:40 EA (Rec: 01/21/19 16:10 EA [id number]) OP Mobility Evaluation Bed Mobility Rolling Requires assist Supine to and from Sit unable Transfers Sit to Stand Indep Bed to Chair Transfers indep Car Transfers indep Floor Transfers Unable OP Gait Assessment Gait Gait Assistance Required: Independent Able to Maintain Weight Bearing Status Yes During Gait Assistive Devices Assistive Device Straight Cane Gait Deviations General Gait Pattern Flexed Trunk Factors Limiting Gait Function Factors Limiting Gait Function Limited Range of Motion Pain Comments Gait Comments Stiffed pelvic gait. PT-OP-J Posture/Palpation/Skin Start: 01/20/19 17:38 Freq: Status: Active Protocol: Document 01/20/19 17:40 EA (Rec: 01/21/19 16:10 EA [id number]) Posture Evaluation Comments Posture Comments Forward head, rounded shoulder , flex trunk with stiffed pelvis Palpation Assessment Location One Palpation Location Paralumbars, QL, upper gluteals Palpation Findings Soft Tissue Tightness Spasm Tenderness PT-OP-K Range of Motion Start: 01/20/19 17:38 Freq: Status: Active Protocol: Document 01/20/19 17:40 EA (Rec: 01/21/19 16:10 EA [id number]) Lumbar Spine Range of Motion Lumbar Spine Active Percentage Testing Position sitting and standing Flexion 60 Extension 100 Rotation Left 55 Rotation Right 55 Lateral Flexion Left 60 Lateral Flexion Right 60 ROM Limitations Soft Tissue Tightness Pain Hip Goniometric Range of Motion Hip Measured in Degrees Right Active Hip ROM WFL Yes Left Active Hip ROM WFL Yes Knee Goniometric Range of Motion Knee Measured in Degrees Right Knee ROM WFL Yes Left Knee ROM WFL Yes PT-OP-M Strength Start: 01/20/19 17:38 Freq: Status: Active Protocol: Document 01/20/19 17:40 EA (Rec: 01/21/19 16:10 EA [id number]) Trunk Strength Trunk Manual Muscle Testing Core Stabilization Unable to test in supine position due to fear of severe attack. Patient is able to hold manual resistance in sitting position in all direction. Hip Strength Hip Manual Muscle Testing Right Reason Not Measured WFL Left Reason Not Measured WFL PT-OP-Q Treatments Start: 01/20/19 17:38 Freq: Status: Active Protocol: Document 02/04/19 08:57 EA (Rec: 02/04/19 09:03 EA [id number]) Cardio Equipment Recumbent Stepper (Sci-Fit) Duration (Minutes) 10 Resistance 1 Seat Position 13 Other somewhat hard intensity: watch for SOB Manual Therapy Treatment Soft Tissue Mobilization 1 Mobilization Type Myofascial Release Rolling Strumming Sustained Pressure Trigger Point Release Intensity/Depth Moderate Body Position Sitting Comments leaning to the table PT-OP-R Modalities Start: 01/20/19 17:38 Freq: Status: Active Protocol: Document 02/04/19 08:57 EA (Rec: 02/04/19 09:03 EA [id number]) Electric Stimulation Electric Stimulation Interferential Current (IFC) Body Location right paraspinals, SI joint Duration (Minutes) 15 Intensity 17 Contraction Type Normal Patient Position Sitting Combined With Heat/Cold Hot Pack PT-OP-T Assessment and Plan Start: 01/20/19 17:38 Freq: Status: Active Protocol: Document 02/04/19 08:57 EA (Rec: 02/04/19 09:03 EA [id number]) Physical Therapy Assessment Assessment Summary Assessment Pt refused to perform low back core exercises today as she thinks pain and back spasm might aggravate more. She tolerated manual therapy with moderate intensity. I educated patient about sleeping posture and lifting mechanics. I recommended to increase walking. Physical Therapy Plan Next Visit Focus/Plan Next Note Type Treatment Note Next Visit Plan Continue with current plan.
--- NOTE | 2019-02-09 11:25 | PT.OTN ---
Current Diagnoses Other spondylosis with radiculopathy, lumbosacral region (02/09/19) Spondylosis without myelopathy or radiculopathy, lumbar region (02/09/19) Physical Therapy Treatment Note PT-OP-A Visit Information Start: 01/20/19 17:38 Freq: Status: Active Protocol: Document 02/09/19 11:18 SA (Rec: 02/09/19 11:25 SA [email or web address]) Out-Patient Physical Therapy Visit Information Visit Information Visit Type Treatment Note Visit Start Time 08:15 Visit Stop Time 09:01 Total Visit Minutes 46 Visit Number 5 PT-OP-B Current Condition Start: 01/20/19 17:38 Freq: Status: Active Protocol: Document 01/20/19 17:40 EA (Rec: 01/21/19 16:10 EA [id number]) Current Condition History of Current Condition Onset Date Chronic 10 years ago Current Complaints Low back pain (localized) History of Current Condition Present condition of low back pain has been chronic but exacerbated after last lumbar injection on . Pt reports incendence where she was brought up to E.R. due to severe lumbar spasm from just getting up in the bed. She denies any numbness or loss of strength to both LE's. She denies back surgery. She reports that the most comfortable resting position is now using her recliner. Prior Treatments and Tests MRI 2 wks ago from today's date lumbar treatment injections Future Testing and Treatments Planned None identified. Treatment Goals Patient/Caregiver Goals Patient would like to get rid of her low back pain so she can sleep on her bed. Prior Functional Status Baseline Function- ADL's Independent Baseline Function- Mobility Independent Baseline Function- Gait More than a block using a walker Baseline Function- Work/School Retired Baseline Function- Other No difficulty getting in and out of the bed prior to last severe attack Current Functional Impairments (Reported) Functional Limitations- ADL's Independent but limited with bending and reaching with spinal rotation Functional Limitations- Mobility/Gait Unable to walk > a block with a walker Functional Limitations- Work/School Retired Functional Limitations- Other Unable to lay down on her bed due to fear of severe low back pain. Personal Factors Other Personal Factors That May Effect HTN, lumbar joint Therapy/Recovery degenerative joint disease. PT-OP-C Subjective Start: 01/20/19 17:38 Freq: Status: Active Protocol: Document 02/09/19 11:18 SA (Rec: 02/09/19 11:25 SA [id number]) OP-PT Subjective Patient Comments Patient Comments Pt presents with continued flare up of low back, slept in recliner again with increased soreness/stiffness this morning. PT-OP-G Mobility & Gait Start: 01/20/19 17:38 Freq: Status: Active Protocol: Document 01/20/19 17:40 EA (Rec: 01/21/19 16:10 EA [id number]) OP Mobility Evaluation Bed Mobility Rolling Requires assist Supine to and from Sit unable Transfers Sit to Stand Indep Bed to Chair Transfers indep Car Transfers indep Floor Transfers Unable OP Gait Assessment Gait Gait Assistance Required: Independent Able to Maintain Weight Bearing Status Yes During Gait Assistive Devices Assistive Device Straight Cane Gait Deviations General Gait Pattern Flexed Trunk Factors Limiting Gait Function Factors Limiting Gait Function Limited Range of Motion Pain Comments Gait Comments Stiffed pelvic gait. PT-OP-J Posture/Palpation/Skin Start: 01/20/19 17:38 Freq: Status: Active Protocol: Document 01/20/19 17:40 EA (Rec: 01/21/19 16:10 EA [id number]) Posture Evaluation Comments Posture Comments Forward head, rounded shoulder , flex trunk with stiffed pelvis Palpation Assessment Location One Palpation Location Paralumbars, QL, upper gluteals Palpation Findings Soft Tissue Tightness Spasm Tenderness PT-OP-K Range of Motion Start: 01/20/19 17:38 Freq: Status: Active Protocol: Document 01/20/19 17:40 EA (Rec: 01/21/19 16:10 EA [id number]) Lumbar Spine Range of Motion Lumbar Spine Active Percentage Testing Position sitting and standing Flexion 60 Extension 100 Rotation Left 55 Rotation Right 55 Lateral Flexion Left 60 Lateral Flexion Right 60 ROM Limitations Soft Tissue Tightness Pain Hip Goniometric Range of Motion Hip Measured in Degrees Right Active Hip ROM WFL Yes Left Active Hip ROM WFL Yes Knee Goniometric Range of Motion Knee Measured in Degrees Right Knee ROM WFL Yes Left Knee ROM WFL Yes PT-OP-M Strength Start: 01/20/19 17:38 Freq: Status: Active Protocol: Document 01/20/19 17:40 EA (Rec: 01/21/19 16:10 EA [id number]) Trunk Strength Trunk Manual Muscle Testing Core Stabilization Unable to test in supine position due to fear of severe attack. Patient is able to hold manual resistance in sitting position in all direction. Hip Strength Hip Manual Muscle Testing Right Reason Not Measured WFL Left Reason Not Measured WFL PT-OP-Q Treatments Start: 01/20/19 17:38 Freq: Status: Active Protocol: Document 02/09/19 11:18 SA (Rec: 02/09/19 11:25 SA [email or web address]) Cardio Equipment Recumbent Stepper (Sci-Fit) Duration (Minutes) 10 Resistance 1.5 Seat Position 13 Therapeutic Exercises Supine Exercises 3 Supine Exercise Name PPT Side bilateral Reps/Minutes x 5SH x 10 reps Comments seated 2 Supine Exercise Name Low trunk rot stretch Reps/Minutes x 30SH x 2 Comments Gentle up to tolerance 1 Supine Exercise Name Hamstring stretch: gentle Reps/Minutes x 30SH x 2 Other Exercises 1 Other Exercise Name Wall posture then to PPT Reps/Minutes x 5SH x 10 reps Manual Therapy Treatment Soft Tissue Mobilization 1 Mobilization Type Myofascial Release Rolling Strumming Sustained Pressure Trigger Point Release Intensity/Depth Moderate Body Position Sitting Comments leaning to the table PT-OP-R Modalities Start: 01/20/19 17:38 Freq: Status: Active Protocol: Document 02/09/19 11:18 SA (Rec: 02/09/19 11:25 [email or web address]) Electric Stimulation Electric Stimulation Interferential Current (IFC) Body Location right paraspinals, SI joint Duration (Minutes) 15 Intensity 17 Contraction Type Normal Patient Position Sitting Combined With Heat/Cold Hot Pack PT-OP-T Assessment and Plan Start: 01/20/19 17:38 Freq: Status: Active Protocol: Document 02/09/19 11:18 SA (Rec: 02/09/19 11:25 [email or web address]) Physical Therapy Assessment Assessment Summary Assessment Review of log roll technique for in/out of bed and abdominal bracing during transitional movements to decrease spinal irritation. Pt tolerated stretching and seated exercise well today. States that STM helps decrease symptoms. Physical Therapy Plan Next Visit Focus/Plan Next Note Type Treatment Note Next Visit Plan Try to progress core stability as tolerated, follow up with sleeping situation.
--- NOTE | 2019-02-12 11:35 | PT.OTN ---
Current Diagnoses Other spondylosis with radiculopathy, lumbosacral region (02/12/19) Spondylosis without myelopathy or radiculopathy, lumbar region (02/12/19) Physical Therapy Treatment Note PT-OP-A Visit Information Start: 01/20/19 17:38 Freq: Status: Active Protocol: Document 02/12/19 11:28 SA (Rec: 02/12/19 11:34 SA [email or web address]) Out-Patient Physical Therapy Visit Information Visit Information Visit Type Treatment Note Visit Start Time 08:15 Visit Stop Time 09:05 Total Visit Minutes 50 Visit Number 6 PT-OP-B Current Condition Start: 01/20/19 17:38 Freq: Status: Active Protocol: Document 01/20/19 17:40 EA (Rec: 01/21/19 16:10 EA [id number]) Current Condition History of Current Condition Onset Date Chronic 10 years ago Current Complaints Low back pain (localized) History of Current Condition Present condition of low back pain has been chronic but exacerbated after last lumbar injection on . Pt reports incend[facility] where she was brought up to E.R. due to severe lumbar spasm from just getting up in the bed. She denies any numbness or loss of strength to both LE's. She denies back surgery. She reports that the most comfortable resting position is now using her recliner. Prior Treatments and Tests MRI 2 wks ago from today's date lumbar treatment injections Future Testing and Treatments Planned None identified. Treatment Goals Patient/Caregiver Goals Patient would like to get rid of her low back pain so she can sleep on her bed. Prior Functional Status Baseline Function- ADL's Independent Baseline Function- Mobility Independent Baseline Function- Gait More than a block using a walker Baseline Function- Work/School Retired Baseline Function- Other No difficulty getting in and out of the bed prior to last severe attack Current Functional Impairments (Reported) Functional Limitations- ADL's Independent but limited with bending and reaching with spinal rotation Functional Limitations- Mobility/Gait Unable to walk > a block with a walker Functional Limitations- Work/School Retired Functional Limitations- Other Unable to lay down on her bed due to fear of severe low back pain. Personal Factors Other Personal Factors That May Effect HTN, lumbar joint Therapy/Recovery degenerative joint disease. PT-OP-C Subjective Start: 01/20/19 17:38 Freq: Status: Active Protocol: Document 02/12/19 11:28 SA (Rec: 02/12/19 11:34 SA [email or web address]) OP-PT Subjective Patient Comments Patient Comments Pt reports relief for 2 days after last visit but woke up this morning with back pain ans spasms. PT-OP-G Mobility & Gait Start: 01/20/19 17:38 Freq: Status: Active Protocol: Document 01/20/19 17:40 EA (Rec: 01/21/19 16:10 EA [id number]) OP Mobility Evaluation Bed Mobility Rolling Requires assist Supine to and from Sit unable Transfers Sit to Stand Indep Bed to Chair Transfers indep Car Transfers indep Floor Transfers Unable OP Gait Assessment Gait Gait Assistance Required: Independent Able to Maintain Weight Bearing Status Yes During Gait Assistive Devices Assistive Device Straight Cane Gait Deviations General Gait Pattern Flexed Trunk Factors Limiting Gait Function Factors Limiting Gait Function Limited Range of Motion Pain Comments Gait Comments Stiffed pelvic gait. PT-OP-J Posture/Palpation/Skin Start: 01/20/19 17:38 Freq: Status: Active Protocol: Document 01/20/19 17:40 EA (Rec: 01/21/19 16:10 EA [id number]) Posture Evaluation Comments Posture Comments Forward head, rounded shoulder , flex trunk with stiffed pelvis Palpation Assessment Location One Palpation Location Paralumbars, QL, upper gluteals Palpation Findings Soft Tissue Tightness Spasm Tenderness PT-OP-K Range of Motion Start: 01/20/19 17:38 Freq: Status: Active Protocol: Document 01/20/19 17:40 EA (Rec: 01/21/19 16:10 EA [id number]) Lumbar Spine Range of Motion Lumbar Spine Active Percentage Testing Position sitting and standing Flexion 60 Extension 100 Rotation Left 55 Rotation Right 55 Lateral Flexion Left 60 Lateral Flexion Right 60 ROM Limitations Soft Tissue Tightness Pain Hip Goniometric Range of Motion Hip Measured in Degrees Right Active Hip ROM WFL Yes Left Active Hip ROM WFL Yes Knee Goniometric Range of Motion Knee Measured in Degrees Right Knee ROM WFL Yes Left Knee ROM WFL Yes PT-OP-M Strength Start: 01/20/19 17:38 Freq: Status: Active Protocol: Document 01/20/19 17:40 EA (Rec: 01/21/19 16:10 EA [id number]) Trunk Strength Trunk Manual Muscle Testing Core Stabilization Unable to test in supine position due to fear of severe attack. Patient is able to hold manual resistance in sitting position in all direction. Hip Strength Hip Manual Muscle Testing Right Reason Not Measured WFL Left Reason Not Measured WFL PT-OP-Q Treatments Start: 01/20/19 17:38 Freq: Status: Active Protocol: Document 02/12/19 11:28 SA (Rec: 02/12/19 11:34 SA [email or web address]) Cardio Equipment Recumbent Stepper (Sci-Fit) Duration (Minutes) 10 Resistance 1.7 Seat Position 13 Therapeutic Exercises Supine Exercises 3 Supine Exercise Name PPT Side bilateral Reps/Minutes x 5SH x 10 reps Comments seated 2 Supine Exercise Name Low trunk rot stretch Reps/Minutes x 30SH x 2 Comments Gentle up to tolerance 1 Supine Exercise Name Hamstring stretch: gentle Reps/Minutes 30 x 2 each Comments seated with stool Other Exercises 1 Other Exercise Name Wall posture then to PPT Reps/Minutes x 5SH x 10 reps Manual Therapy Treatment Soft Tissue Mobilization 1 Mobilization Type Myofascial Release Rolling Strumming Sustained Pressure Trigger Point Release Intensity/Depth Moderate Body Position Sitting Comments leaning to the table PT-OP-R Modalities Start: 01/20/19 17:38 Freq: Status: Active Protocol: Document 02/12/19 11:34 SA (Rec: 02/12/19 11:34 [email or web address]) Electric Stimulation Electric Stimulation Interferential Current (IFC) Body Location low back Duration (Minutes) 15 Intensity 17 Contraction Type Normal Patient Position Sitting Combined With Heat/Cold Hot Pack PT-OP-T Assessment and Plan Start: 01/20/19 17:38 Freq: Status: Active Protocol: Document 02/12/19 11:28 SA (Rec: 02/12/19 11:34 [email or web address]) Physical Therapy Assessment Assessment Summary Assessment Pt still sleeping in recliner, encouraged to transition back to bed. Pt plans to try over the weekend, responding well to STM and heat/estim. To increase core exercise for HEP Physical Therapy Plan Next Visit Focus/Plan Next Note Type Treatment Note Next Visit Plan Try to progress core stability as tolerated, follow up with sleeping situation.
--- NOTE | 2019-02-16 15:34 | PT.OTN ---
Current Diagnoses Other spondylosis with radiculopathy, lumbosacral region (02/16/19) Spondylosis without myelopathy or radiculopathy, lumbar region (02/16/19) Physical Therapy Treatment Note PT-OP-A Visit Information Start: 01/20/19 17:38 Freq: Status: Active Protocol: Document 02/16/19 15:28 SA (Rec: 02/16/19 15:34 SA [email or web address]) Out-Patient Physical Therapy Visit Information Visit Information Visit Type Treatment Note Visit Start Time 13:45 Visit Stop Time 14:35 Total Visit Minutes 50 Visit Number 7 PT-OP-B Current Condition Start: 01/20/19 17:38 Freq: Status: Active Protocol: Document 01/20/19 17:40 EA (Rec: 01/21/19 16:10 EA [id number]) Current Condition History of Current Condition Onset Date Chronic 10 years ago Current Complaints Low back pain (localized) History of Current Condition Present condition of low back pain has been chronic but exacerbated after last lumbar injection on . Pt reports incendence where she was brought up to E.R. due to severe lumbar spasm from just getting up in the bed. She denies any numbness or loss of strength to both LE's. She denies back surgery. She reports that the most comfortable resting position is now using her recliner. Prior Treatments and Tests MRI 2 wks ago from today's date lumbar treatment injections Future Testing and Treatments Planned None identified. Treatment Goals Patient/Caregiver Goals Patient would like to get rid of her low back pain so she can sleep on her bed. Prior Functional Status Baseline Function- ADL's Independent Baseline Function- Mobility Independent Baseline Function- Gait More than a block using a walker Baseline Function- Work/School Retired Baseline Function- Other No difficulty getting in and out of the bed prior to last severe attack Current Functional Impairments (Reported) Functional Limitations- ADL's Independent but limited with bending and reaching with spinal rotation Functional Limitations- Mobility/Gait Unable to walk > a block with a walker Functional Limitations- Work/School Retired Functional Limitations- Other Unable to lay down on her bed due to fear of severe low back pain. Personal Factors Other Personal Factors That May Effect HTN, lumbar joint Therapy/Recovery degenerative joint disease. PT-OP-C Subjective Start: 01/20/19 17:38 Freq: Status: Active Protocol: Document 02/16/19 15:28 SA (Rec: 02/16/19 15:34 SA [email or web address]) OP-PT Subjective Patient Comments Patient Comments Pt reports decreased pain since last visit and was able to take a walk this AM, feeling pretty good today. PT-OP-G Mobility & Gait Start: 01/20/19 17:38 Freq: Status: Active Protocol: Document 01/20/19 17:40 EA (Rec: 01/21/19 16:10 EA [id number]) OP Mobility Evaluation Bed Mobility Rolling Requires assist Supine to and from Sit unable Transfers Sit to Stand Indep Bed to Chair Transfers indep Car Transfers indep Floor Transfers Unable OP Gait Assessment Gait Gait Assistance Required: Independent Able to Maintain Weight Bearing Status Yes During Gait Assistive Devices Assistive Device Straight Cane Gait Deviations General Gait Pattern Flexed Trunk Factors Limiting Gait Function Factors Limiting Gait Function Limited Range of Motion Pain Comments Gait Comments Stiffed pelvic gait. PT-OP-J Posture/Palpation/Skin Start: 01/20/19 17:38 Freq: Status: Active Protocol: Document 01/20/19 17:40 EA (Rec: 01/21/19 16:10 EA [id number]) Posture Evaluation Comments Posture Comments Forward head, rounded shoulder , flex trunk with stiffed pelvis Palpation Assessment Location One Palpation Location Paralumbars, QL, upper gluteals Palpation Findings Soft Tissue Tightness Spasm Tenderness PT-OP-K Range of Motion Start: 01/20/19 17:38 Freq: Status: Active Protocol: Document 01/20/19 17:40 EA (Rec: 01/21/19 16:10 EA [id number]) Lumbar Spine Range of Motion Lumbar Spine Active Percentage Testing Position sitting and standing Flexion 60 Extension 100 Rotation Left 55 Rotation Right 55 Lateral Flexion Left 60 Lateral Flexion Right 60 ROM Limitations Soft Tissue Tightness Pain Hip Goniometric Range of Motion Hip Right Active Hip ROM WFL Yes Left Active Hip ROM WFL Yes Knee Goniometric Range of Motion Knee Right Knee ROM WFL Yes Left Knee ROM WFL Yes PT-OP-M Strength Start: 01/20/19 17:38 Freq: Status: Active Protocol: Document 01/20/19 17:40 EA (Rec: 01/21/19 16:10 EA [id number]) Trunk Strength Trunk Manual Muscle Testing Core Stabilization Unable to test in supine position due to fear of severe attack. Patient is able to hold manual resistance in sitting position in all direction. Hip Strength Hip Manual Muscle Testing Right Reason Not Measured WFL Left Reason Not Measured WFL PT-OP-Q Treatments Start: 01/20/19 17:38 Freq: Status: Active Protocol: Document 02/16/19 15:28 SA (Rec: 02/16/19 15:34 [email or web address]) Cardio Equipment Recumbent Stepper (Sci-Fit) Duration (Minutes) 10 Resistance 2.0 Seat Position 13 Therapeutic Exercises Supine Exercises 3 Supine Exercise Name PPT Side bilateral Reps/Minutes x 5SH x 10 reps Comments seated 2 Supine Exercise Name Low trunk rot stretch Reps/Minutes x 30SH x 2 Comments Gentle up to tolerance 1 Supine Exercise Name Hamstring stretch: gentle Reps/Minutes 30 x 2 each Comments seated with stool Other Exercises 1 Other Exercise Name Wall posture then to PPT Reps/Minutes x 5SH x 10 reps Manual Therapy Treatment Soft Tissue Mobilization 1 Mobilization Type Myofascial Release Rolling Strumming Sustained Pressure Trigger Point Release Intensity/Depth Moderate Body Position Sitting Comments leaning to the table PT-OP-R Modalities Start: 01/20/19 17:38 Freq: Status: Active Protocol: Document 02/16/19 15:28 SA (Rec: 02/16/19 15:34 [email or web address]) Electric Stimulation Electric Stimulation Interferential Current (IFC) Body Location B paraspinals Duration (Minutes) 15 Intensity 17 Contraction Type Normal Patient Position Sitting Combined With Heat/Cold Hot Pack PT-OP-T Assessment and Plan Start: 01/20/19 17:38 Freq: Status: Active Protocol: Document 02/16/19 15:28 (Rec: 02/16/19 15:34 [email or web address]) Physical Therapy Assessment Assessment Summary Assessment Pt plans to sleep in bed tonight, reviewed getting in/ out of bed with core activation. Pt with decreased symptoms but continued paraspinal tightness. Physical Therapy Plan Next Visit Focus/Plan Next Note Type Treatment Note Next Visit Plan Progress to more supine ther ex vs seated and see how pt tolerated sleeping in bed again.
--- NOTE | 2019-02-18 11:15 | PT.OPPN ---
Current Diagnoses Other spondylosis with radiculopathy, lumbosacral region (02/18/19) Spondylosis without myelopathy or radiculopathy, lumbar region (02/18/19) Physical Therapy Progress Note PT-OP-A Visit Information Start: 01/20/19 17:38 Freq: Status: Active Protocol: Document 02/18/19 11:15 DLM (Rec: 02/22/19 08:08 DLM [email or web address]) Out-Patient Physical Therapy Visit Information Visit Information Visit Type Progress Note Visit Note and treatment this visit Visit Start Time 11:15 Visit Stop Time 12:10 Total Visit Minutes 55 Visit Number 8 Number of PRODUCTION UNDERWRITER Visits 0 Evaluation Information Evaluation Date 01/20/19 PT-OP-B Current Condition Start: 01/20/19 17:38 Freq: Status: Active Protocol: Document 01/20/19 17:40 EA (Rec: 01/21/19 16:10 EA [id number]) Current Condition History of Current Condition Onset Date Chronic 10 years ago Current Complaints Low back pain (localized) History of Current Condition Present condition of low back pain has been chronic but exacerbated after last lumbar injection on . Pt reports incendence where she was brought up to E.R. due to severe lumbar spasm from just getting up in the bed. She denies any numbness or loss of strength to both LE's. She denies back surgery. She reports that the most comfortable resting position is now using her recliner. Prior Treatments and Tests MRI 2 wks ago from today's date lumbar treatment injections Future Testing and Treatments Planned None identified. Treatment Goals Patient/Caregiver Goals Patient would like to get rid of her low back pain so she can sleep on her bed. Prior Functional Status Baseline Function- ADL's Independent Baseline Function- Mobility Independent Baseline Function- Gait More than a block using a walker Baseline Function- Work/School Retired Baseline Function- Other No difficulty getting in and out of the bed prior to last severe attack Current Functional Impairments (Reported) Functional Limitations- ADL's Independent but limited with bending and reaching with spinal rotation Functional Limitations- Mobility/Gait Unable to walk > a block with a walker Functional Limitations- Work/School Retired Functional Limitations- Other Unable to lay down on her bed due to fear of severe low back pain. Personal Factors Other Personal Factors That May Effect HTN, lumbar joint Therapy/Recovery degenerative joint disease. PT-OP-C Subjective Start: 01/20/19 17:38 Freq: Status: Active Protocol: Document 02/18/19 11:15 DLM (Rec: 02/22/19 08:08 DLM [email or web address]) OP-PT Subjective Patient Comments Patient Comments Sleeping better, able to sleep in bed for 4 hours then goes to the recliner. OP-PT Pain Assessment Location Right Lower Posterior Back Intensity 4 Scale Used Numeric (1 - 10) Pain Alleviating Factors Heat Home Pain Medication Use Pain Medications Used Yes: Tylenol, no longer taking Aleve Patient Goal pt is also taking muscle relaxants at night now Pain Behaviors Pain Behaviors Guarding PT-OP-G Mobility & Gait Start: 01/20/19 17:38 Freq: Status: Active Protocol: Document 02/18/19 11:15 DLM (Rec: 02/22/19 08:08 DLM [email or web address]) OP Mobility Evaluation Bed Mobility Rolling independent but slow Supine to and from Sit independent, needs verbal cues to use sidelying-sit technique OP Gait Assessment Gait Gait Assistance Required: Independent Assistive Devices Assistive Device Straight Cane Comments Gait Comments to therapy with cane today, she reports she could walk in house without the cane this AM , still uses it when going out of the house PT-OP-J Posture/Palpation/Skin Start: 01/20/19 17:38 Freq: Status: Active Protocol: Document 01/20/19 17:40 EA (Rec: 01/21/19 16:10 EA [id number]) Posture Evaluation Comments Posture Comments Forward head, rounded shoulder , flex trunk with stiffed pelvis Palpation Assessment Location One Palpation Location Paralumbars, QL, upper gluteals Palpation Findings Soft Tissue Tightness Spasm Tenderness PT-OP-K Range of Motion Start: 01/20/19 17:38 Freq: Status: Active Protocol: Document 01/20/19 17:40 EA (Rec: 01/21/19 16:10 EA [id number]) Lumbar Spine Range of Motion Lumbar Spine Active Percentage Testing Position sitting and standing Flexion 60 Extension 100 Rotation Left 55 Rotation Right 55 Lateral Flexion Left 60 Lateral Flexion Right 60 ROM Limitations Soft Tissue Tightness Pain Hip Goniometric Range of Motion Hip Measured in Degrees Right Active Hip ROM WFL Yes Left Active Hip ROM WFL Yes Knee Goniometric Range of Motion Knee Measured in Degrees Right Knee ROM WFL Yes Left Knee ROM WFL Yes PT-OP-M Strength Start: 01/20/19 17:38 Freq: Status: Active Protocol: Document 01/20/19 17:40 EA (Rec: 01/21/19 16:10 EA [id number]) Trunk Strength Trunk Manual Muscle Testing Core Stabilization Unable to test in supine position due to fear of severe attack. Patient is able to hold manual resistance in sitting position in all direction. Hip Strength Hip Manual Muscle Testing Right Reason Not Measured WFL Left Reason Not Measured WFL PT-OP-T Assessment and Plan Start: 01/20/19 17:38 Freq: Status: Active Protocol: Document 02/18/19 11:15 DLM (Rec: 02/22/19 08:08 DLM [email or web address]) Physical Therapy Assessment Goals Three Impairment Impaired posture Acetylene Plant Operator Goal (LTG) Improving-Patient will exhibit near to normal posture to decrease trunk muscular imbalance LTG Duration 5 wks Four Impairment Unable to perform sitting <-> supine in bed Acetylene Plant Operator Goal (LTG) Improving-Patient will perform sit <-> supine in bed with good mechanics to enable patient to sleep on her bed. LTG Duration 3 wks Two Impairment No HEP in place Acetylene Plant Operator Goal (LTG) Progressing- Patient will perform indep HEP LTG Duration 3 wks One Impairment Oswetry score of 35/50 Acetylene Plant Operator Goal (LTG) Patient will exhibit Oswestry score of < 25/50 to enhance quality of life LTG Duration 5 wks Progress Towards Goals Progress Towards Goals Progressing Toward Goals Progress Comments slowly progressing towards all goals Assessment Summary Assessment Pt report gradual improvement in her ability to sleep in bed . Tolerating light exercises well. She reports pain relief with use of modalities. Physical Therapy Plan Frequency and Duration Frequency of Treatment 2x/Week Duration of Treatment 8 wks Plan of Care Start Date 01/20/19 Plan of Care End Date 03/17/19 Therapeutic Interventions Therapeutic Interventions Aquatic Therapy Home Exercise Program Joint Mobilizations Manual Therapy Patient/Caregiver Education Self-Care/Home Management Soft Tissue Mobilization Taping Therapeutic Activities Therapeutic Exercises Modalities Cold Pack/Ice Massage Electric Stimulation Hot Packs Next Visit Focus/Plan Next Note Type Treatment Note Next Visit Plan Progress to more supine ther ex vs seated and see how pt tolerated sleeping in bed again.
--- NOTE | 2019-02-22 12:09 | PT.OTN ---
Current Diagnoses Other spondylosis with radiculopathy, lumbosacral region (02/22/19) Spondylosis without myelopathy or radiculopathy, lumbar region (02/22/19) Physical Therapy Treatment Note PT-OP-A Visit Information Start: 01/20/19 17:38 Freq: Status: Active Protocol: Document 02/22/19 09:00 EA (Rec: 02/22/19 09:05 EA [id number]) Out-Patient Physical Therapy Visit Information Visit Information Visit Type Treatment Note Visit Start Time 08:15 Visit Stop Time 09:05 Total Visit Minutes 50 Visit Number 9 PT-OP-B Current Condition Start: 01/20/19 17:38 Freq: Status: Active Protocol: Document 01/20/19 17:40 EA (Rec: 01/21/19 16:10 EA [id number]) Current Condition History of Current Condition Onset Date Chronic 10 years ago Current Complaints Low back pain (localized) History of Current Condition Present condition of low back pain has been chronic but exacerbated after last lumbar injection on . Pt reports incendence where she was brought up to E.R. due to severe lumbar spasm from just getting up in the bed. She denies any numbness or loss of strength to both LE's. She denies back surgery. She reports that the most comfortable resting position is now using her recliner. Prior Treatments and Tests MRI 2 wks ago from today's date lumbar treatment injections Future Testing and Treatments Planned None identified. Treatment Goals Patient/Caregiver Goals Patient would like to get rid of her low back pain so she can sleep on her bed. Prior Functional Status Baseline Function- ADL's Independent Baseline Function- Mobility Independent Baseline Function- Gait More than a block using a walker Baseline Function- Work/School Retired Baseline Function- Other No difficulty getting in and out of the bed prior to last severe attack Current Functional Impairments (Reported) Functional Limitations- ADL's Independent but limited with bending and reaching with spinal rotation Functional Limitations- Mobility/Gait Unable to walk > a block with a walker Functional Limitations- Work/School Retired Functional Limitations- Other Unable to lay down on her bed due to fear of severe low back pain. Personal Factors Other Personal Factors That May Effect HTN, lumbar joint Therapy/Recovery degenerative joint disease. PT-OP-C Subjective Start: 01/20/19 17:38 Freq: Status: Active Protocol: Document 02/22/19 09:05 EA (Rec: 02/22/19 09:06 EA [id number]) OP-PT Subjective Patient Comments Patient Comments My low back is ten times better this morning than yesterday after 1 block of walk. Patient Reported Progress Improving PT-OP-G Mobility & Gait Start: 01/20/19 17:38 Freq: Status: Active Protocol: Document 02/18/19 11:15 DLM (Rec: 02/22/19 08:08 DLM [email or web address]) OP Mobility Evaluation Bed Mobility Rolling independent but slow Supine to and from Sit independent, needs verbal cues to use sidelying-sit technique OP Gait Assessment Gait Gait Assistance Required: Independent Assistive Devices Assistive Device Straight Cane Comments Gait Comments to therapy with cane today, she reports she could walk in house without the cane this AM , still uses it when going out of the house PT-OP-J Posture/Palpation/Skin Start: 01/20/19 17:38 Freq: Status: Active Protocol: Document 01/20/19 17:40 EA (Rec: 01/21/19 16:10 EA [id number]) Posture Evaluation Comments Posture Comments Forward head, rounded shoulder , flex trunk with stiffed pelvis Palpation Assessment Location One Palpation Location Paralumbars, QL, upper gluteals Palpation Findings Soft Tissue Tightness Spasm Tenderness PT-OP-K Range of Motion Start: 01/20/19 17:38 Freq: Status: Active Protocol: Document 01/20/19 17:40 EA (Rec: 01/21/19 16:10 EA [id number]) Lumbar Spine Range of Motion Lumbar Spine Active Percentage Testing Position sitting and standing Flexion 60 Extension 100 Rotation Left 55 Rotation Right 55 Lateral Flexion Left 60 Lateral Flexion Right 60 ROM Limitations Soft Tissue Tightness Pain Hip Goniometric Range of Motion Hip Right Active Hip ROM WFL Yes Left Active Hip ROM WFL Yes Knee Goniometric Range of Motion Knee Right Knee ROM WFL Yes Left Knee ROM WFL Yes PT-OP-M Strength Start: 01/20/19 17:38 Freq: Status: Active Protocol: Document 01/20/19 17:40 EA (Rec: 01/21/19 16:10 EA [id number]) Trunk Strength Trunk Manual Muscle Testing Core Stabilization Unable to test in supine position due to fear of severe attack. Patient is able to hold manual resistance in sitting position in all direction. Hip Strength Hip Manual Muscle Testing Right Reason Not Measured WFL Left Reason Not Measured WFL PT-OP-Q Treatments Start: 01/20/19 17:38 Freq: Status: Active Protocol: Document 02/22/19 09:00 EA (Rec: 02/22/19 09:05 EA [id number]) Therapeutic Exercises Supine Exercises 7 Supine Exercise Name Hip ABD/ADD Reps/Minutes 10 reps 3 Supine Exercise Name PPT Side bilateral Reps/Minutes 5 sec hold x 10 reps Comments black wedge used 2 Supine Exercise Name Low trunk rot stretch Reps/Minutes x 30SH x 2 Comments Gentle up to tolerance 1 Supine Exercise Name Hamstring stretch: gentle Reps/Minutes 30 x 2 each Comments seated with stool Sitting Exercises 1 Sitting Exercise Name flexion and sidebend stretches Reps/Minutes x 10 reps each sides Comments leaning toward the ground in the bolster Other Exercises 1 Other Exercise Name Wall posture then to PPT Reps/Minutes 5 sec hold x 10 reps Manual Therapy Treatment Soft Tissue Mobilization 1 Mobilization Type Myofascial Release Rolling Strumming Sustained Pressure Trigger Point Release Intensity/Depth Moderate Body Position Sitting Comments leaning to the table PT-OP-R Modalities Start: 01/20/19 17:38 Freq: Status: Active Protocol: Document 02/22/19 09:00 EA (Rec: 02/22/19 09:05 EA [id number]) Electric Stimulation Electric Stimulation Interferential Current (IFC) Body Location B paraspinals Duration (Minutes) 15 Intensity 17 Contraction Type Normal Patient Position Sitting Combined With Heat/Cold Hot Pack PT-OP-T Assessment and Plan Start: 01/20/19 17:38 Freq: Status: Active Protocol: Document 02/22/19 09:00 EA (Rec: 02/22/19 09:05 EA [id number]) Physical Therapy Assessment Assessment Summary Assessment Pt exhibits very slight improved tolerance to exercises; guarding towards spinal motion seems to limit her mobility and this could be from fear of repeated low back spasms experience. I educated patient to get lumbar spine mobilize when pain is less. Physical Therapy Plan Next Visit Focus/Plan Next Note Type Treatment Note Next Visit Plan Progress as tolerated
--- NOTE | 2019-02-24 12:11 | PT.OTN ---
Current Diagnoses Other spondylosis with radiculopathy, lumbosacral region (02/24/19) Spondylosis without myelopathy or radiculopathy, lumbar region (02/24/19) Physical Therapy Treatment Note PT-OP-A Visit Information Start: 01/20/19 17:38 Freq: Status: Active Protocol: Document 02/24/19 08:57 EA (Rec: 02/24/19 09:01 EA [id number]) Out-Patient Physical Therapy Visit Information Visit Information Visit Type Treatment Note Visit Start Time 08:15 Visit Stop Time 09:08 Total Visit Minutes 53 Visit Number 10 PT-OP-B Current Condition Start: 01/20/19 17:38 Freq: Status: Active Protocol: Document 01/20/19 17:40 EA (Rec: 01/21/19 16:10 EA [id number]) Current Condition History of Current Condition Onset Date Chronic 10 years ago Current Complaints Low back pain (localized) History of Current Condition Present condition of low back pain has been chronic but exacerbated after last lumbar injection on . Pt reports [facility] where she was brought up to E.R. due to severe lumbar spasm from just getting up in the bed. She denies any numbness or loss of strength to both LE's. She denies back surgery. She reports that the most comfortable resting position is now using her recliner. Prior Treatments and Tests MRI 2 wks ago from today's date lumbar treatment injections Future Testing and Treatments Planned None identified. Treatment Goals Patient/Caregiver Goals Patient would like to get rid of her low back pain so she can sleep on her bed. Prior Functional Status Baseline Function- ADL's Independent Baseline Function- Mobility Independent Baseline Function- Gait More than a block using a walker Baseline Function- Work/School Retired Baseline Function- Other No difficulty getting in and out of the bed prior to last severe attack Current Functional Impairments (Reported) Functional Limitations- ADL's Independent but limited with bending and reaching with spinal rotation Functional Limitations- Mobility/Gait Unable to walk > a block with a walker Functional Limitations- Work/School Retired Functional Limitations- Other Unable to lay down on her bed due to fear of severe low back pain. Personal Factors Other Personal Factors That May Effect HTN, lumbar joint Therapy/Recovery degenerative joint disease. PT-OP-C Subjective Start: 01/20/19 17:38 Freq: Status: Active Protocol: Document 02/24/19 08:57 EA (Rec: 02/24/19 09:01 EA [id number]) OP-PT Subjective Patient Comments Patient Comments Pt reports able to sleep more than 6 hours in bed with no low back discomfort; states she is planning to enrol in the gym. Patient Reported Progress Improving PT-OP-G Mobility & Gait Start: 01/20/19 17:38 Freq: Status: Active Protocol: Document 02/18/19 11:15 DLM (Rec: 02/22/19 08:08 DLM [id number]) OP Mobility Evaluation Bed Mobility Rolling independent but slow Supine to and from Sit independent, needs verbal cues to use sidelying-sit technique OP Gait Assessment Gait Gait Assistance Required: Independent Assistive Devices Assistive Device Straight Cane Comments Gait Comments to therapy with cane today, she reports she could walk in house without the cane this AM , still uses it when going out of the house PT-OP-J Posture/Palpation/Skin Start: 01/20/19 17:38 Freq: Status: Active Protocol: Document 01/20/19 17:40 EA (Rec: 01/21/19 16:10 EA [id number]) Posture Evaluation Comments Posture Comments Forward head, rounded shoulder , flex trunk with stiffed pelvis Palpation Assessment Location One Palpation Location Paralumbars, QL, upper gluteals Palpation Findings Soft Tissue Tightness Spasm Tenderness PT-OP-K Range of Motion Start: 01/20/19 17:38 Freq: Status: Active Protocol: Document 01/20/19 17:40 EA (Rec: 01/21/19 16:10 EA [id number]) Lumbar Spine Range of Motion Lumbar Spine Active Percentage Testing Position sitting and standing Flexion 60 Extension 100 Rotation Left 55 Rotation Right 55 Lateral Flexion Left 60 Lateral Flexion Right 60 ROM Limitations Soft Tissue Tightness Pain Hip Goniometric Range of Motion Hip Right Active Hip ROM WFL Yes Left Active Hip ROM WFL Yes Knee Goniometric Range of Motion Knee Right Knee ROM WFL Yes Left Knee ROM WFL Yes PT-OP-M Strength Start: 01/20/19 17:38 Freq: Status: Active Protocol: Document 01/20/19 17:40 EA (Rec: 01/21/19 16:10 EA [id number]) Trunk Strength Trunk Manual Muscle Testing Core Stabilization Unable to test in supine position due to fear of severe attack. Patient is able to hold manual resistance in sitting position in all direction. Hip Strength Hip Manual Muscle Testing Right Reason Not Measured WFL Left Reason Not Measured WFL PT-OP-Q Treatments Start: 01/20/19 17:38 Freq: Status: Active Protocol: Document 02/24/19 08:57 EA (Rec: 02/24/19 09:01 EA [id number]) Cardio Equipment Recumbent Stepper (Sci-Fit) Duration (Minutes) 10 Resistance 2 Seat Position 11 Therapeutic Exercises Supine Exercises 7 Supine Exercise Name Hip ABD/ADD Reps/Minutes 10 reps 3 Supine Exercise Name PPT Side bilateral Reps/Minutes 5 sec hold x 10 reps Comments black wedge used 2 Supine Exercise Name Low trunk rot stretch Reps/Minutes x 30SH x 3 Comments Gentle up to tolerance 1 Supine Exercise Name Hamstring stretch: gentle Reps/Minutes 30 x 2 each Comments seated with stool Sitting Exercises 1 Sitting Exercise Name flexion and sidebend/rotation stretches Reps/Minutes x 10 reps each sides Comments leaning toward the ground in the bolster Manual Therapy Treatment Soft Tissue Mobilization 1 Body Location Paralumbars, QL Mobilization Type Myofascial Release Rolling Strumming Sustained Pressure Trigger Point Release Intensity/Depth Moderate Body Position Sitting Comments leaning to the table PT-OP-R Modalities Start: 01/20/19 17:38 Freq: Status: Active Protocol: Document 02/24/19 08:57 EA (Rec: 02/24/19 09:01 EA [id number]) Electric Stimulation Electric Stimulation Interferential Current (IFC) Body Location B paraspinals Duration (Minutes) 15 Intensity 17 Contraction Type Normal Patient Position Sitting Combined With Heat/Cold Hot Pack PT-OP-T Assessment and Plan Start: 01/20/19 17:38 Freq: Status: Active Protocol: Document 02/24/19 08:57 EA (Rec: 02/24/19 09:01 EA [id number]) Physical Therapy Assessment Assessment Summary Assessment Tolerated treatment well with no signs of spasm during bed mobility however requires min assist from supine <-> sit. Physical Therapy Plan Next Visit Focus/Plan Next Note Type Treatment Note Next Visit Plan Progress as tolerated
--- NOTE | 2019-03-03 09:46 | PT.OTN ---
Current Diagnoses Other spondylosis with radiculopathy, lumbosacral region (03/03/19) Spondylosis without myelopathy or radiculopathy, lumbar region (03/03/19) Physical Therapy Treatment Note PT-OP-A Visit Information Start: 01/20/19 17:38 Freq: Status: Active Protocol: Document 03/03/19 08:59 EA (Rec: 03/03/19 09:03 EA [id number]) Out-Patient Physical Therapy Visit Information Visit Information Visit Type Treatment Note Visit Start Time 08:15 Visit Stop Time 09:08 Total Visit Minutes 53 Visit Number 11 PT-OP-B Current Condition Start: 01/20/19 17:38 Freq: Status: Active Protocol: Document 01/20/19 17:40 EA (Rec: 01/21/19 16:10 EA [id number]) Current Condition History of Current Condition Onset Date Chronic 10 years ago Current Complaints Low back pain (localized) History of Current Condition Present condition of low back pain has been chronic but exacerbated after last lumbar injection on . Pt reports [facility] where she was brought up to E.R. due to severe lumbar spasm from just getting up in the bed. She denies any numbness or loss of strength to both LE's. She denies back surgery. She reports that the most comfortable resting position is now using her recliner. Prior Treatments and Tests MRI 2 wks ago from today's date lumbar treatment injections Future Testing and Treatments Planned None identified. Treatment Goals Patient/Caregiver Goals Patient would like to get rid of her low back pain so she can sleep on her bed. Prior Functional Status Baseline Function- ADL's Independent Baseline Function- Mobility Independent Baseline Function- Gait More than a block using a walker Baseline Function- Work/School Retired Baseline Function- Other No difficulty getting in and out of the bed prior to last severe attack Current Functional Impairments (Reported) Functional Limitations- ADL's Independent but limited with bending and reaching with spinal rotation Functional Limitations- Mobility/Gait Unable to walk > a block with a walker Functional Limitations- Work/School Retired Functional Limitations- Other Unable to lay down on her bed due to fear of severe low back pain. Personal Factors Other Personal Factors That May Effect HTN, lumbar joint Therapy/Recovery degenerative joint disease. PT-OP-C Subjective Start: 01/20/19 17:38 Freq: Status: Active Protocol: Document 03/03/19 08:59 EA (Rec: 03/03/19 09:03 EA [id number]) OP-PT Subjective Patient Comments Patient Comments Pt reports she was able to sleep in bed for 8 hours; states woke up toady with low right back is sore. PT-OP-G Mobility & Gait Start: 01/20/19 17:38 Freq: Status: Active Protocol: Document 02/18/19 11:15 DLM (Rec: 02/22/19 08:08 DLM [id number]) OP Mobility Evaluation Bed Mobility Rolling independent but slow Supine to and from Sit independent, needs verbal cues to use sidelying-sit technique OP Gait Assessment Gait Gait Assistance Required: Independent Assistive Devices Assistive Device Straight Cane Comments Gait Comments to therapy with cane today, she reports she could walk in house without the cane this AM , still uses it when going out of the house PT-OP-J Posture/Palpation/Skin Start: 01/20/19 17:38 Freq: Status: Active Protocol: Document 01/20/19 17:40 EA (Rec: 01/21/19 16:10 EA [id number]) Posture Evaluation Comments Posture Comments Forward head, rounded shoulder , flex trunk with stiffed pelvis Palpation Assessment Location One Palpation Location Paralumbars, QL, upper gluteals Palpation Findings Soft Tissue Tightness Spasm Tenderness PT-OP-K Range of Motion Start: 01/20/19 17:38 Freq: Status: Active Protocol: Document 01/20/19 17:40 EA (Rec: 01/21/19 16:10 EA [id number]) Lumbar Spine Range of Motion Lumbar Spine Active Percentage Testing Position sitting and standing Flexion 60 Extension 100 Rotation Left 55 Rotation Right 55 Lateral Flexion Left 60 Lateral Flexion Right 60 ROM Limitations Soft Tissue Tightness Pain Hip Goniometric Range of Motion Hip Right Active Hip ROM WFL Yes Left Active Hip ROM WFL Yes Knee Goniometric Range of Motion Knee Right Knee ROM WFL Yes Left Knee ROM WFL Yes PT-OP-M Strength Start: 01/20/19 17:38 Freq: Status: Active Protocol: Document 01/20/19 17:40 EA (Rec: 01/21/19 16:10 EA [id number]) Trunk Strength Trunk Manual Muscle Testing Core Stabilization Unable to test in supine position due to fear of severe attack. Patient is able to hold manual resistance in sitting position in all direction. Hip Strength Hip Manual Muscle Testing Right Reason Not Measured WFL Left Reason Not Measured WFL PT-OP-Q Treatments Start: 01/20/19 17:38 Freq: Status: Active Protocol: Document 03/03/19 08:59 EA (Rec: 03/03/19 09:03 EA [id number]) Cardio Equipment Recumbent Stepper (Sci-Fit) Duration (Minutes) 10 Resistance 2 Seat Position 11 Therapeutic Exercises Supine Exercises 7 Supine Exercise Name Hip ABD/ADD Reps/Minutes 10 reps 4 Supine Exercise Name PPT with leg raise suppurted with bolster Reps/Minutes x 10 reps x 2 sets 3 Supine Exercise Name PPT Side bilateral Reps/Minutes 5 sec hold x 10 reps Comments black wedge used 1 Supine Exercise Name Hamstring stretch: gentle Reps/Minutes 30 x 2 each Sitting Exercises 1 Sitting Exercise Name flexion and sidebend/rotation stretches Reps/Minutes x 10 reps each sides Comments leaning toward the ground in the bolster Other Exercises 1 Other Exercise Name Wall posture then to PPT Reps/Minutes 5 sec hold x 10 reps Manual Therapy Treatment Soft Tissue Mobilization 1 Body Location Paralumbars, QL Mobilization Type Myofascial Release Rolling Strumming Sustained Pressure Trigger Point Release Intensity/Depth Moderate Body Position Sitting Comments leaning to the table PT-OP-R Modalities Start: 01/20/19 17:38 Freq: Status: Active Protocol: Document 03/03/19 08:59 EA (Rec: 03/03/19 09:03 EA [id number]) Electric Stimulation Electric Stimulation Interferential Current (IFC) Body Location B paraspinals Duration (Minutes) 15 Intensity 17 Contraction Type Normal Patient Position Sitting Combined With Heat/Cold Hot Pack PT-OP-T Assessment and Plan Start: 01/20/19 17:38 Freq: Status: Active Protocol: Document 03/03/19 08:59 EA (Rec: 03/03/19 09:03 EA [id number]) Physical Therapy Assessment Assessment Summary Assessment Improved tolerance to therex at this time; still requires assist from supine to sit. Physical Therapy Plan Next Visit Focus/Plan Next Note Type Treatment Note Next Visit Plan Progress as tolerated
--- NOTE | 2019-03-05 11:25 | PT.OTN ---
Current Diagnoses Other spondylosis with radiculopathy, lumbosacral region (03/05/19) Spondylosis without myelopathy or radiculopathy, lumbar region (03/05/19) Physical Therapy Treatment Note PT-OP-A Visit Information Start: 01/20/19 17:38 Freq: Status: Active Protocol: Document 03/05/19 11:21 SA (Rec: 03/05/19 11:25 SA [email or web address]) Out-Patient Physical Therapy Visit Information Visit Information Visit Type Treatment Note Visit Start Time 09:00 Visit Stop Time 09:50 Total Visit Minutes 50 Visit Number 12 Number of INSURANCE SALES AGENT Visits 1 PT-OP-B Current Condition Start: 01/20/19 17:38 Freq: Status: Active Protocol: Document 01/20/19 17:40 EA (Rec: 01/21/19 16:10 EA [id number]) Current Condition History of Current Condition Onset Date Chronic 10 years ago Current Complaints Low back pain (localized) History of Current Condition Present condition of low back pain has been chronic but exacerbated after last lumbar injection on . Pt reports [facility] where she was brought up to E.R. due to severe lumbar spasm from just getting up in the bed. She denies any numbness or loss of strength to both LE's. She denies back surgery. She reports that the most comfortable resting position is now using her recliner. Prior Treatments and Tests MRI 2 wks ago from today's date lumbar treatment injections Future Testing and Treatments Planned None identified. Treatment Goals Patient/Caregiver Goals Patient would like to get rid of her low back pain so she can sleep on her bed. Prior Functional Status Baseline Function- ADL's Independent Baseline Function- Mobility Independent Baseline Function- Gait More than a block using a walker Baseline Function- Work/School Retired Baseline Function- Other No difficulty getting in and out of the bed prior to last severe attack Current Functional Impairments (Reported) Functional Limitations- ADL's Independent but limited with bending and reaching with spinal rotation Functional Limitations- Mobility/Gait Unable to walk > a block with a walker Functional Limitations- Work/School Retired Functional Limitations- Other Unable to lay down on her bed due to fear of severe low back pain. Personal Factors Other Personal Factors That May Effect HTN, lumbar joint Therapy/Recovery degenerative joint disease. PT-OP-C Subjective Start: 01/20/19 17:38 Freq: Status: Active Protocol: Document 03/05/19 11:21 SA (Rec: 03/05/19 11:25 SA [email or web address]) OP-PT Subjective Patient Comments Patient Comments Pt slept in bed until she aidan up in pain at 3:30 this AM, reports feeling sore/painful since last visit. PT-OP-G Mobility & Gait Start: 01/20/19 17:38 Freq: Status: Active Protocol: Document 02/18/19 11:15 DLM (Rec: 02/22/19 08:08 DLM [id number]) OP Mobility Evaluation Bed Mobility Rolling independent but slow Supine to and from Sit independent, needs verbal cues to use sidelying-sit technique OP Gait Assessment Gait Gait Assistance Required: Independent Assistive Devices Assistive Device Straight Cane Comments Gait Comments to therapy with cane today, she reports she could walk in house without the cane this AM , still uses it when going out of the house PT-OP-J Posture/Palpation/Skin Start: 01/20/19 17:38 Freq: Status: Active Protocol: Document 01/20/19 17:40 EA (Rec: 01/21/19 16:10 EA [id number]) Posture Evaluation Comments Posture Comments Forward head, rounded shoulder , flex trunk with stiffed pelvis Palpation Assessment Location One Palpation Location Paralumbars, QL, upper gluteals Palpation Findings Soft Tissue Tightness Spasm Tenderness PT-OP-K Range of Motion Start: 01/20/19 17:38 Freq: Status: Active Protocol: Document 01/20/19 17:40 EA (Rec: 01/21/19 16:10 EA [id number]) Lumbar Spine Range of Motion Lumbar Spine Active Percentage Testing Position sitting and standing Flexion 60 Extension 100 Rotation Left 55 Rotation Right 55 Lateral Flexion Left 60 Lateral Flexion Right 60 ROM Limitations Soft Tissue Tightness Pain Hip Goniometric Range of Motion Hip Right Active Hip ROM WFL Yes Left Active Hip ROM WFL Yes Knee Goniometric Range of Motion Knee Right Knee ROM WFL Yes Left Knee ROM WFL Yes PT-OP-M Strength Start: 01/20/19 17:38 Freq: Status: Active Protocol: Document 01/20/19 17:40 EA (Rec: 01/21/19 16:10 EA [id number]) Trunk Strength Trunk Manual Muscle Testing Core Stabilization Unable to test in supine position due to fear of severe attack. Patient is able to hold manual resistance in sitting position in all direction. Hip Strength Hip Manual Muscle Testing Right Reason Not Measured WFL Left Reason Not Measured WFL PT-OP-Q Treatments Start: 01/20/19 17:38 Freq: Status: Active Protocol: Document 03/05/19 11:21 SA (Rec: 03/05/19 11:25 SA [email or web address]) Cardio Equipment Recumbent Stepper (Sci-Fit) Duration (Minutes) 10 Resistance 2.2 Seat Position 11 Therapeutic Exercises Supine Exercises 3 Supine Exercise Name PPT Side bilateral Reps/Minutes 5 sec hold x 10 reps Comments black wedge used 2 Supine Exercise Name Low trunk rot stretch Reps/Minutes x 30SH x 3 Comments Gentle up to tolerance 1 Supine Exercise Name Hamstring stretch: gentle Reps/Minutes 30 x 2 each Other Exercises 1 Other Exercise Name Wall posture then to PPT Reps/Minutes 5 sec hold x 10 reps Manual Therapy Treatment Soft Tissue Mobilization 1 Body Location Paralumbars, QL Mobilization Type Myofascial Release Rolling Strumming Sustained Pressure Trigger Point Release Intensity/Depth Moderate Body Position Sitting Comments leaning to the table PT-OP-R Modalities Start: 01/20/19 17:38 Freq: Status: Active Protocol: Document 03/05/19 11:21 SA (Rec: 03/05/19 11:25 [id number]) Electric Stimulation Electric Stimulation Interferential Current (IFC) Body Location B paraspinals Duration (Minutes) 15 Intensity 17 Contraction Type Normal Patient Position Sitting Combined With Heat/Cold Hot Pack PT-OP-T Assessment and Plan Start: 01/20/19 17:38 Freq: Status: Active Protocol: Document 03/05/19 11:21 SA (Rec: 03/05/19 11:25 [email or web address]) Physical Therapy Assessment Assessment Summary Assessment Pt tolerated ther ex well today, continued postural cues needed. Doing HEP on all days except PT days. Physical Therapy Plan Next Visit Focus/Plan Next Note Type Treatment Note Next Visit Plan Progress as tolerated
--- NOTE | 2019-03-08 09:40 | PT.OTN ---
Current Diagnoses Other spondylosis with radiculopathy, lumbosacral region (03/08/19) Spondylosis without myelopathy or radiculopathy, lumbar region (03/08/19) Physical Therapy Treatment Note PT-OP-A Visit Information Start: 01/20/19 17:38 Freq: Status: Active Protocol: Document 03/08/19 08:24 EA (Rec: 03/08/19 08:27 EA [id number]) Out-Patient Physical Therapy Visit Information Visit Information Visit Type Treatment Note Visit Start Time 08:15 Visit Stop Time 09:08 Total Visit Minutes 53 Visit Number 13 PT-OP-B Current Condition Start: 01/20/19 17:38 Freq: Status: Active Protocol: Document 01/20/19 17:40 EA (Rec: 01/21/19 16:10 EA [id number]) Current Condition History of Current Condition Onset Date Chronic 10 years ago Current Complaints Low back pain (localized) History of Current Condition Present condition of low back pain has been chronic but exacerbated after last lumbar injection on . Pt reports incendence where she was brought up to E.R. due to severe lumbar spasm from just getting up in the bed. She denies any numbness or loss of strength to both LE's. She denies back surgery. She reports that the most comfortable resting position is now using her recliner. Prior Treatments and Tests MRI 2 wks ago from today's date lumbar treatment injections Future Testing and Treatments Planned None identified. Treatment Goals Patient/Caregiver Goals Patient would like to get rid of her low back pain so she can sleep on her bed. Prior Functional Status Baseline Function- ADL's Independent Baseline Function- Mobility Independent Baseline Function- Gait More than a block using a walker Baseline Function- Work/School Retired Baseline Function- Other No difficulty getting in and out of the bed prior to last severe attack Current Functional Impairments (Reported) Functional Limitations- ADL's Independent but limited with bending and reaching with spinal rotation Functional Limitations- Mobility/Gait Unable to walk > a block with a walker Functional Limitations- Work/School Retired Functional Limitations- Other Unable to lay down on her bed due to fear of severe low back pain. Personal Factors Other Personal Factors That May Effect HTN, lumbar joint Therapy/Recovery degenerative joint disease. PT-OP-C Subjective Start: 01/20/19 17:38 Freq: Status: Active Protocol: Document 03/08/19 08:24 EA (Rec: 03/08/19 08:27 EA [id number]) OP-PT Subjective Patient Comments Patient Comments Pt reports pain is improved after last visit until the next day; reports SL position and hip ABD exercises perpformed last visits improves pain. Patient Reported Progress Improving PT-OP-G Mobility & Gait Start: 01/20/19 17:38 Freq: Status: Active Protocol: Document 02/18/19 11:15 DLM (Rec: 02/22/19 08:08 DLM [id number]) OP Mobility Evaluation Bed Mobility Rolling independent but slow Supine to and from Sit independent, needs verbal cues to use sidelying-sit technique OP Gait Assessment Gait Gait Assistance Required: Independent Assistive Devices Assistive Device Straight Cane Comments Gait Comments to therapy with cane today, she reports she could walk in house without the cane this AM , still uses it when going out of the house PT-OP-J Posture/Palpation/Skin Start: 01/20/19 17:38 Freq: Status: Active Protocol: Document 01/20/19 17:40 EA (Rec: 01/21/19 16:10 EA [id number]) Posture Evaluation Comments Posture Comments Forward head, rounded shoulder , flex trunk with stiffed pelvis Palpation Assessment Location One Palpation Location Paralumbars, QL, upper gluteals Palpation Findings Soft Tissue Tightness Spasm Tenderness PT-OP-K Range of Motion Start: 01/20/19 17:38 Freq: Status: Active Protocol: Document 01/20/19 17:40 EA (Rec: 01/21/19 16:10 EA [id number]) Lumbar Spine Range of Motion Lumbar Spine Active Percentage Testing Position sitting and standing Flexion 60 Extension 100 Rotation Left 55 Rotation Right 55 Lateral Flexion Left 60 Lateral Flexion Right 60 ROM Limitations Soft Tissue Tightness Pain Hip Goniometric Range of Motion Hip Right Active Hip ROM WFL Yes Left Active Hip ROM WFL Yes Knee Goniometric Range of Motion Knee Right Knee ROM WFL Yes Left Knee ROM WFL Yes PT-OP-M Strength Start: 01/20/19 17:38 Freq: Status: Active Protocol: Document 01/20/19 17:40 EA (Rec: 01/21/19 16:10 EA [id number]) Trunk Strength Trunk Manual Muscle Testing Core Stabilization Unable to test in supine position due to fear of severe attack. Patient is able to hold manual resistance in sitting position in all direction. Hip Strength Hip Manual Muscle Testing Right Reason Not Measured WFL Left Reason Not Measured WFL PT-OP-Q Treatments Start: 01/20/19 17:38 Freq: Status: Active Protocol: Document 03/08/19 08:57 EA (Rec: 03/08/19 09:01 EA [id number]) Cardio Equipment Recumbent Stepper (Sci-Fit) Duration (Minutes) 10 Resistance 2.2 Seat Position 11 Therapeutic Exercises Supine Exercises 7 Supine Exercise Name Hip ABD/ADD Reps/Minutes 10 reps 4 Supine Exercise Name PPT with leg raise suppurted with bolster Reps/Minutes x 10 reps x 2 sets 2 Supine Exercise Name Low trunk rot stretch Reps/Minutes x 30SH x 3 Comments Gentle up to tolerance 1 Supine Exercise Name Hamstring stretch: gentle Reps/Minutes 30 x 2 each Sidelying Exercises 2 Sidelying Exercise Name Clamshell Side right Reps/Minutes x 10 reps 1 Sidelying Exercise Name TFL/IT band stretch Reps/Minutes x 15 sh x 2 reps Manual Therapy Treatment Soft Tissue Mobilization 2 Body Location Right TFL/ITB, Upper gluteals Mobilization Type Myofascial Release Sustained Pressure Trigger Point Release Intensity/Depth Superficial Body Position Sidelying 1 Body Location Paralumbars, QL Mobilization Type Myofascial Release Rolling Strumming Sustained Pressure Trigger Point Release Intensity/Depth Moderate Body Position Sitting Comments leaning to the table PT-OP-R Modalities Start: 01/20/19 17:38 Freq: Status: Active Protocol: Document 03/08/19 08:57 EA (Rec: 03/08/19 09:01 EA [id number]) Electric Stimulation Electric Stimulation Interferential Current (IFC) Body Location B paraspinals Duration (Minutes) 15 Intensity 17 Contraction Type Normal Patient Position Sitting Combined With Heat/Cold Hot Pack PT-OP-T Assessment and Plan Start: 01/20/19 17:38 Freq: Status: Active Protocol: Document 03/08/19 08:57 EA (Rec: 03/08/19 09:01 EA [id number]) Physical Therapy Assessment Assessment Summary Assessment Improved tolerance to exercises and manual PT. Discussed keeping mobile at home and agreed to comply. Physical Therapy Plan Next Visit Focus/Plan Next Note Type Treatment Note Next Visit Plan Progress as tolerated
--- NOTE | 2019-03-10 11:15 | PT.OTN ---
Current Diagnoses Other spondylosis with radiculopathy, lumbosacral region (03/10/19) Spondylosis without myelopathy or radiculopathy, lumbar region (03/10/19) Physical Therapy Treatment Note PT-OP-A Visit Information Start: 01/20/19 17:38 Freq: Status: Active Protocol: Document 03/10/19 09:00 EA (Rec: 03/10/19 09:05 EA [id number]) Out-Patient Physical Therapy Visit Information Visit Information Visit Type Treatment Note Visit Start Time 08:15 Visit Stop Time 09:08 Total Visit Minutes 53 Visit Number 14 PT-OP-B Current Condition Start: 01/20/19 17:38 Freq: Status: Active Protocol: Document 01/20/19 17:40 EA (Rec: 01/21/19 16:10 EA [id number]) Current Condition History of Current Condition Onset Date Chronic 10 years ago Current Complaints Low back pain (localized) History of Current Condition Present condition of low back pain has been chronic but exacerbated after last lumbar injection on . Pt reports incendence where she was brought up to E.R. due to severe lumbar spasm from just getting up in the bed. She denies any numbness or loss of strength to both LE's. She denies back surgery. She reports that the most comfortable resting position is now using her recliner. Prior Treatments and Tests MRI 2 wks ago from today's date lumbar treatment injections Future Testing and Treatments Planned None identified. Treatment Goals Patient/Caregiver Goals Patient would like to get rid of her low back pain so she can sleep on her bed. Prior Functional Status Baseline Function- ADL's Independent Baseline Function- Mobility Independent Baseline Function- Gait More than a block using a walker Baseline Function- Work/School Retired Baseline Function- Other No difficulty getting in and out of the bed prior to last severe attack Current Functional Impairments (Reported) Functional Limitations- ADL's Independent but limited with bending and reaching with spinal rotation Functional Limitations- Mobility/Gait Unable to walk > a block with a walker Functional Limitations- Work/School Retired Functional Limitations- Other Unable to lay down on her bed due to fear of severe low back pain. Personal Factors Other Personal Factors That May Effect HTN, lumbar joint Therapy/Recovery degenerative joint disease. PT-OP-C Subjective Start: 01/20/19 17:38 Freq: Status: Active Protocol: Document 03/10/19 09:00 EA (Rec: 03/10/19 09:05 EA [id number]) OP-PT Subjective Patient Comments Patient Comments I feel I much improved than before as I am ble to sleep on my back now and sides; states back ache still comes and goes. PT-OP-G Mobility & Gait Start: 01/20/19 17:38 Freq: Status: Active Protocol: Document 02/18/19 11:15 DLM (Rec: 02/22/19 08:08 DLM [id number]) OP Mobility Evaluation Bed Mobility Rolling independent but slow Supine to and from Sit independent, needs verbal cues to use sidelying-sit technique OP Gait Assessment Gait Gait Assistance Required: Independent Assistive Devices Assistive Device Straight Cane Comments Gait Comments to therapy with cane today, she reports she could walk in house without the cane this AM , still uses it when going out of the house PT-OP-J Posture/Palpation/Skin Start: 01/20/19 17:38 Freq: Status: Active Protocol: Document 01/20/19 17:40 EA (Rec: 01/21/19 16:10 EA [id number]) Posture Evaluation Comments Posture Comments Forward head, rounded shoulder , flex trunk with stiffed pelvis Palpation Assessment Location One Palpation Location Paralumbars, QL, upper gluteals Palpation Findings Soft Tissue Tightness Spasm Tenderness PT-OP-K Range of Motion Start: 01/20/19 17:38 Freq: Status: Active Protocol: Document 01/20/19 17:40 EA (Rec: 01/21/19 16:10 EA [id number]) Lumbar Spine Range of Motion Lumbar Spine Active Percentage Testing Position sitting and standing Flexion 60 Extension 100 Rotation Left 55 Rotation Right 55 Lateral Flexion Left 60 Lateral Flexion Right 60 ROM Limitations Soft Tissue Tightness Pain Hip Goniometric Range of Motion Hip Right Active Hip ROM WFL Yes Left Active Hip ROM WFL Yes Knee Goniometric Range of Motion Knee Right Knee ROM WFL Yes Left Knee ROM WFL Yes PT-OP-M Strength Start: 01/20/19 17:38 Freq: Status: Active Protocol: Document 01/20/19 17:40 EA (Rec: 01/21/19 16:10 EA [id number]) Trunk Strength Trunk Manual Muscle Testing Core Stabilization Unable to test in supine position due to fear of severe attack. Patient is able to hold manual resistance in sitting position in all direction. Hip Strength Hip Manual Muscle Testing Right Reason Not Measured WFL Left Reason Not Measured WFL PT-OP-Q Treatments Start: 01/20/19 17:38 Freq: Status: Active Protocol: Document 03/10/19 09:00 EA (Rec: 03/10/19 09:05 EA [id number]) Cardio Equipment Recumbent Stepper (Sci-Fit) Duration (Minutes) 10 Resistance 2.4 Seat Position 11 Therapeutic Exercises Supine Exercises 7 Supine Exercise Name Hip ABD/ADD Reps/Minutes 10 reps 4 Supine Exercise Name PPT with leg raise suppurted with bolster Reps/Minutes x 10 reps x 2 sets Comments small arch 3 Supine Exercise Name PPT Side bilateral Reps/Minutes 5 sec hold x 10 reps Comments black wedge used 2 Supine Exercise Name Low trunk rot stretch Reps/Minutes x 30SH x 3 Comments Gentle up to tolerance 1 Supine Exercise Name Hamstring stretch: gentle Reps/Minutes 30 x 2 each Sidelying Exercises 2 Sidelying Exercise Name Clamshell Side right Reps/Minutes x 10 reps 1 Sidelying Exercise Name TFL/IT band stretch Reps/Minutes x 15 sh x 2 reps Manual Therapy Treatment Soft Tissue Mobilization 2 Body Location Right TFL/ITB, Upper gluteals Mobilization Type Myofascial Release Sustained Pressure Trigger Point Release Intensity/Depth Superficial Body Position Sidelying 1 Body Location Paralumbars, QL Mobilization Type Myofascial Release Rolling Strumming Sustained Pressure Trigger Point Release Intensity/Depth Moderate Body Position Sitting Comments leaning to the table Manual Techniques 1 Body Position Sidelying Comments Long axis R hip traction in SL position with dropping of the pelvis PT-OP-R Modalities Start: 01/20/19 17:38 Freq: Status: Active Protocol: Document 03/10/19 09:00 EA (Rec: 03/10/19 09:05 EA [id number]) Electric Stimulation Electric Stimulation Interferential Current (IFC) Body Location B paraspinals Duration (Minutes) 15 Intensity 17 Contraction Type Normal Patient Position Sidelying Combined With Heat/Cold Hot Pack PT-OP-T Assessment and Plan Start: 01/20/19 17:38 Freq: Status: Active Protocol: Document 03/10/19 09:00 EA (Rec: 07/10/19 09:05 EA [id number]) Physical Therapy Assessment Assessment Summary Assessment Tolerated treatment with minor back spasm past 5reps on alt leg raises with PPT. Educated with HEP and agreed to comply. Physical Therapy Plan Next Visit Focus/Plan Next Note Type Treatment Note Next Visit Plan Progress as tolerated
--- NOTE | 2019-03-15 09:42 | PT.OTN ---
Current Diagnoses Other spondylosis with radiculopathy, lumbosacral region (03/15/19) Spondylosis without myelopathy or radiculopathy, lumbar region (03/15/19) Physical Therapy Treatment Note PT-OP-A Visit Information Start: 01/20/19 17:38 Freq: Status: Active Protocol: Document 03/15/19 08:58 EA (Rec: 03/15/19 09:02 EA [id number]) Out-Patient Physical Therapy Visit Information Visit Information Visit Type Treatment Note Visit Start Time 08:15 Visit Stop Time 09:03 Total Visit Minutes 48 Visit Number 15 PT-OP-B Current Condition Start: 01/20/19 17:38 Freq: Status: Active Protocol: Document 01/20/19 17:40 EA (Rec: 01/21/19 16:10 EA [id number]) Current Condition History of Current Condition Onset Date Chronic 10 years ago Current Complaints Low back pain (localized) History of Current Condition Present condition of low back pain has been chronic but exacerbated after last lumbar injection on . Pt reports incendence where she was brought up to E.R. due to severe lumbar spasm from just getting up in the bed. She denies any numbness or loss of strength to both LE's. She denies back surgery. She reports that the most comfortable resting position is now using her recliner. Prior Treatments and Tests MRI 2 wks ago from today's date lumbar treatment injections Future Testing and Treatments Planned None identified. Treatment Goals Patient/Caregiver Goals Patient would like to get rid of her low back pain so she can sleep on her bed. Prior Functional Status Baseline Function- ADL's Independent Baseline Function- Mobility Independent Baseline Function- Gait More than a block using a walker Baseline Function- Work/School Retired Baseline Function- Other No difficulty getting in and out of the bed prior to last severe attack Current Functional Impairments (Reported) Functional Limitations- ADL's Independent but limited with bending and reaching with spinal rotation Functional Limitations- Mobility/Gait Unable to walk > a block with a walker Functional Limitations- Work/School Retired Functional Limitations- Other Unable to lay down on her bed due to fear of severe low back pain. Personal Factors Other Personal Factors That May Effect HTN, lumbar joint Therapy/Recovery degenerative joint disease. PT-OP-C Subjective Start: 01/20/19 17:38 Freq: Status: Active Protocol: Document 03/15/19 08:58 EA (Rec: 03/15/19 09:02 EA [id number]) OP-PT Subjective Patient Comments Patient Comments I feel I would like to take a vacation after last session . Reports he still enjoying sleeping on her back but mostly pain when she wakes up. PT-OP-G Mobility & Gait Start: 01/20/19 17:38 Freq: Status: Active Protocol: Document 02/18/19 11:15 DLM (Rec: 02/22/19 08:08 DLM [id number]) OP Mobility Evaluation Bed Mobility Rolling independent but slow Supine to and from Sit independent, needs verbal cues to use sidelying-sit technique OP Gait Assessment Gait Gait Assistance Required: Independent Assistive Devices Assistive Device Straight Cane Comments Gait Comments to therapy with cane today, she reports she could walk in house without the cane this AM , still uses it when going out of the house PT-OP-J Posture/Palpation/Skin Start: 01/20/19 17:38 Freq: Status: Active Protocol: Document 01/20/19 17:40 EA (Rec: 01/21/19 16:10 EA [id number]) Posture Evaluation Comments Posture Comments Forward head, rounded shoulder , flex trunk with stiffed pelvis Palpation Assessment Location One Palpation Location Paralumbars, QL, upper gluteals Palpation Findings Soft Tissue Tightness Spasm Tenderness PT-OP-K Range of Motion Start: 01/20/19 17:38 Freq: Status: Active Protocol: Document 01/20/19 17:40 EA (Rec: 01/21/19 16:10 EA [id number]) Lumbar Spine Range of Motion Lumbar Spine Active Percentage Testing Position sitting and standing Flexion 60 Extension 100 Rotation Left 55 Rotation Right 55 Lateral Flexion Left 60 Lateral Flexion Right 60 ROM Limitations Soft Tissue Tightness Pain Hip Goniometric Range of Motion Hip Right Active Hip ROM WFL Yes Left Active Hip ROM WFL Yes Knee Goniometric Range of Motion Knee Right Knee ROM WFL Yes Left Knee ROM WFL Yes PT-OP-M Strength Start: 01/20/19 17:38 Freq: Status: Active Protocol: Document 01/20/19 17:40 EA (Rec: 01/21/19 16:10 EA [id number]) Trunk Strength Trunk Manual Muscle Testing Core Stabilization Unable to test in supine position due to fear of severe attack. Patient is able to hold manual resistance in sitting position in all direction. Hip Strength Hip Manual Muscle Testing Right Reason Not Measured WFL Left Reason Not Measured WFL PT-OP-Q Treatments Start: 01/20/19 17:38 Freq: Status: Active Protocol: Document 03/15/19 08:58 EA (Rec: 03/15/19 09:02 EA [id number]) Cardio Equipment Recumbent Stepper (Sci-Fit) Duration (Minutes) 10 Resistance 2.4 Seat Position 11 Therapeutic Exercises Sitting Exercises 1 Sitting Exercise Name flexion and sidebend/rotation stretches Reps/Minutes x 10 reps each sides Comments leaning toward the ground in the bolster Other Exercises 1 Other Exercise Name Wall posture then to PPT Reps/Minutes 5 sec hold x 10 reps Manual Therapy Treatment Soft Tissue Mobilization 1 Body Location Paralumbars, QL Mobilization Type Myofascial Release Rolling Strumming Sustained Pressure Trigger Point Release Intensity/Depth Moderate Body Position Sitting Comments leaning to the table Manual Techniques 1 Body Position Sidelying Comments Long axis R hip traction in SL position with dropping of the pelvis PT-OP-R Modalities Start: 01/20/19 17:38 Freq: Status: Active Protocol: Document 03/15/19 08:58 EA (Rec: 03/15/19 09:02 EA [id number]) Electric Stimulation Electric Stimulation Interferential Current (IFC) Body Location B paraspinals Duration (Minutes) 15 Intensity 20 Contraction Type Normal Patient Position Sidelying Combined With Heat/Cold Hot Pack PT-OP-T Assessment and Plan Start: 01/20/19 17:38 Freq: Status: Active Protocol: Document 03/15/19 08:58 EA (Rec: 03/15/19 09:02 EA [id number]) Physical Therapy Assessment Assessment Summary Assessment Patient treatment is re- adjusted to no supine exercises today due to last session response of pain 1 day after. Physical Therapy Plan Next Visit Focus/Plan Next Note Type Re-Evaluation Next Visit Plan Discharge as needed
--- NOTE | 2019-03-17 09:09 | PT.OTN ---
Current Diagnoses Other spondylosis with radiculopathy, lumbosacral region (03/17/19) Spondylosis without myelopathy or radiculopathy, lumbar region (03/17/19) Physical Therapy Treatment Note PT-OP-A Visit Information Start: 01/20/19 17:38 Freq: Status: Active Protocol: Document 03/17/19 09:01 EA (Rec: 03/17/19 09:08 EA [id number]) Out-Patient Physical Therapy Visit Information Visit Information Visit Type Treatment Note Visit Start Time 08:15 Visit Stop Time 09:03 Total Visit Minutes 48 Visit Number 16 PT-OP-B Current Condition Start: 01/20/19 17:38 Freq: Status: Active Protocol: Document 01/20/19 17:40 EA (Rec: 01/21/19 16:10 EA [id number]) Current Condition History of Current Condition Onset Date Chronic 10 years ago Current Complaints Low back pain (localized) History of Current Condition Present condition of low back pain has been chronic but exacerbated after last lumbar injection on . Pt reports incendence where she was brought up to E.R. due to severe lumbar spasm from just getting up in the bed. She denies any numbness or loss of strength to both LE's. She denies back surgery. She reports that the most comfortable resting position is now using her recliner. Prior Treatments and Tests MRI 2 wks ago from today's date lumbar treatment injections Future Testing and Treatments Planned None identified. Treatment Goals Patient/Caregiver Goals Patient would like to get rid of her low back pain so she can sleep on her bed. Prior Functional Status Baseline Function- ADL's Independent Baseline Function- Mobility Independent Baseline Function- Gait More than a block using a walker Baseline Function- Work/School Retired Baseline Function- Other No difficulty getting in and out of the bed prior to last severe attack Current Functional Impairments (Reported) Functional Limitations- ADL's Independent but limited with bending and reaching with spinal rotation Functional Limitations- Mobility/Gait Unable to walk > a block with a walker Functional Limitations- Work/School Retired Functional Limitations- Other Unable to lay down on her bed due to fear of severe low back pain. Personal Factors Other Personal Factors That May Effect HTN, lumbar joint Therapy/Recovery degenerative joint disease. PT-OP-C Subjective Start: 01/20/19 17:38 Freq: Status: Active Protocol: Document 03/17/19 09:01 EA (Rec: 03/17/19 09:08 EA [id number]) OP-PT Subjective Patient Comments Patient Comments I am happy that I am able to lay down on my bed now with no fear of getting up and which is my priority goal while on PT. Pt requested to be treated after todays treament. She states that last session was wonderful and feels few therex decreased the chance of being sore. Patient Reported Progress Improving PT-OP-G Mobility & Gait Start: 01/20/19 17:38 Freq: Status: Active Protocol: Document 02/18/19 11:15 DLM (Rec: 02/22/19 08:08 DLM [id number]) OP Mobility Evaluation Bed Mobility Rolling independent but slow Supine to and from Sit independent, needs verbal cues to use sidelying-sit technique OP Gait Assessment Gait Gait Assistance Required: Independent Assistive Devices Assistive Device Straight Cane Comments Gait Comments to therapy with cane today, she reports she could walk in house without the cane this AM , still uses it when going out of the house PT-OP-J Posture/Palpation/Skin Start: 01/20/19 17:38 Freq: Status: Active Protocol: Document 01/20/19 17:40 EA (Rec: 01/21/19 16:10 EA [id number]) Posture Evaluation Comments Posture Comments Forward head, rounded shoulder , flex trunk with stiffed pelvis Palpation Assessment Location One Palpation Location Paralumbars, QL, upper gluteals Palpation Findings Soft Tissue Tightness Spasm Tenderness PT-OP-K Range of Motion Start: 01/20/19 17:38 Freq: Status: Active Protocol: Document 01/20/19 17:40 EA (Rec: 01/21/19 16:10 EA [id number]) Lumbar Spine Range of Motion Lumbar Spine Active Percentage Testing Position sitting and standing Flexion 60 Extension 100 Rotation Left 55 Rotation Right 55 Lateral Flexion Left 60 Lateral Flexion Right 60 ROM Limitations Soft Tissue Tightness Pain Hip Goniometric Range of Motion Hip Right Active Hip ROM WFL Yes Left Active Hip ROM WFL Yes Knee Goniometric Range of Motion Knee Right Knee ROM WFL Yes Left Knee ROM WFL Yes PT-OP-M Strength Start: 01/20/19 17:38 Freq: Status: Active Protocol: Document 01/20/19 17:40 EA (Rec: 01/21/19 16:10 EA [id number]) Trunk Strength Trunk Manual Muscle Testing Core Stabilization Unable to test in supine position due to fear of severe attack. Patient is able to hold manual resistance in sitting position in all direction. Hip Strength Hip Manual Muscle Testing Right Reason Not Measured WFL Left Reason Not Measured WFL PT-OP-Q Treatments Start: 01/20/19 17:38 Freq: Status: Active Protocol: Document 03/17/19 09:01 EA (Rec: 03/17/19 09:08 EA [id number]) Cardio Equipment Recumbent Stepper (Sci-Fit) Duration (Minutes) 10 Resistance 2.5 Seat Position 11 Therapeutic Exercises Sidelying Exercises 2 Sidelying Exercise Name Clamshell Side right Reps/Minutes x 10 reps Comments HEP comp Sitting Exercises 1 Sitting Exercise Name flexion and sidebend/rotation stretches Reps/Minutes x 10 reps each sides Comments HEP comp Other Exercises 1 Other Exercise Name Wall posture then to PPT Reps/Minutes 5 sec hold x 10 reps Manual Therapy Treatment Soft Tissue Mobilization 1 Body Location Paralumbars, QL Mobilization Type Myofascial Release Rolling Strumming Sustained Pressure Trigger Point Release Intensity/Depth Moderate Body Position Sitting Comments leaning to the table PT-OP-R Modalities Start: 01/20/19 17:38 Freq: Status: Active Protocol: Document 03/17/19 09:01 EA (Rec: 03/17/19 09:08 EA [id number]) Electric Stimulation Electric Stimulation Interferential Current (IFC) Body Location B paraspinals Duration (Minutes) 15 Intensity 20 Contraction Type Normal Patient Position Sidelying Combined With Heat/Cold Hot Pack PT-OP-T Assessment and Plan Start: 01/20/19 17:38 Freq: Status: Active Protocol: Document 03/17/19 09:01 EA (Rec: 03/17/19 09:08 EA [id number]) Physical Therapy Assessment Assessment Summary Assessment Patient exhibited good understanding with HEP and education about proper weight loss and back care. She agreed to comply to all recommendation. She is discharge today upon request. Physical Therapy Plan Discharge Physical Therapy Discharge Reasons Goals Met Discharge Comments Patient request
== END 2019-03-17 13:32 ==
LOC: PHYS 08:15
PROVIDERS: PCP Internal Medicine; Visit Provider Physical Medicine & Rehabilitation
DX: M47.816 Spondylosis without myelopathy or radiculopathy, lumbar region (principal); M47.27 Other spondylosis with radiculopathy, lumbosacral region
CPT/HCPCS: 97014; 97110; 97140; 97161; 97535; G0283

== ENCOUNTER → 2019-09-29 15:09 | Outpatient (CLI) | payer MEDICARE, OTHER, SELFPAY ==
--- NOTE | 2019-09-29 | DI.MG.S_ITS ---
BILATERAL DIGITAL SCREENING MAMMOGRAM 3D/2D WITH CAD: 09/29/2019 CLINICAL: Routine screening. Family history of breast cancer. Comparison is made to exams dated: 07/21/2018 mammogram, 10/02/2017 specimen, and 10/02/2017 [facility]. There are scattered fibroglandular elements in both breasts. Current study was also evaluated with a Computer Aided Detection (CAD) system. No significant masses, calcifications, or other findings are seen in either breast. There has been no significant interval change. IMPRESSION: NEGATIVE There is no mammographic evidence of malignancy. A 1 year screening mammogram is recommended. This exam was interpreted at Station ID: [id number]. NOTE: For mammograms, a report in lay terms will be sent to the patient. Approximately 15% of breast malignancies will not be visualized mammographically. In the management of a palpable breast mass, a negative mammogram must not discourage biopsy of a clinically suspicious lesion. Electronically Signed By: Angie king/cristy:09/29/2019 19:47:28 letter sent: Normal Exam ACR BI-RADS Category 1: Negative 3341F
== END ==
PROVIDERS: PCP Internal Medicine; Visit Provider Internal Medicine
DX: Z12.31 Encounter for screening mammogram for malignant neoplasm of breast (principal); Z80.3 Family history of malignant neoplasm of breast
CPT/HCPCS: 77063; 77067

== ENCOUNTER → 2020-01-13 08:32 | Outpatient (CLI) | payer MEDICARE, OTHER, SELFPAY ==
--- NOTE | 2020-01-13 08:35 | DI.ECHO.S_ITS ---
Echocardiogram Report + + :Name: ROSEANN JOYA Study Date: 01/13/2020 Height: 66 in : :[facility] Weight: 260 lb : : Gender: Female BSA: 2.2 m2 : :: 1945 Age: 74 yrs BP: 134/82 mmHg: :Reason For Study: edema : :Ordering Physician: Dr. Bishop : :Souleymane Performed By: Holly Grigsby : :Referring: MATTHEW JONES R : + + Interpretation Summary This is a technically difficult echo characterized by limited endocardial visualization, and treated with Definity echocontrast. Normal sinus rhythm. Normal LV size and wall thickness. Despite the use of Definity echocontrast only 13 out of 17 segments are visualized. Normal wall motion and LV systolic function. EF is 55-60%. Normal chamber sizes. Mildly dilated RV. No prior study available for comparison. Procedure: A two-dimensional transthoracic echocardiogram with color flow and Doppler was performed. The study quality was technically difficult. A contrast injection of Definity was performed to improve assessment of LV function. Contrast was injected into an intravenous site in the left arm. Definity used after patient education and consent. patient denied any symptoms after the use of definity. The subcostal views were difficult to obtain and are suboptimal in quality. The patient was in normal sinus rhythm during the exam. The heart rate ranged between 65-76 bpm during the study. Left Ventricle: The left ventricle is grossly normal size. Left ventricular wall thickness is normal. The ejection fraction is estimated to be 55-60%. Right Ventricle: The right ventricle is mildly dilated. The right ventricular systolic function is normal. Atria: Both atria are normal in size. There is no Doppler evidence for an interatrial shunt. Mitral Valve: The mitral valve is grossly normal. There is no mitral regurgitation noted. Aortic Valve: The aortic valve is not well visualized. There is no aortic valve stenosis. No aortic regurgitation is present. Tricuspid Valve: The tricuspid valve is not well visualized, but is grossly normal. There is mild tricuspid regurgitation. Pulmonic Valve: The pulmonic valve is not well visualized. Great Vessels: The aortic root is normal size. The ascending aorta is mildly enlarged. The inferior vena cava was not well visualized. Pericardium/ Pleura There is no pericardial effusion. There is no pleural effusion. MMode/2D Measurements & Calculations LVIDd: 5.2 cm LVOT diam: 1.8 cm LVIDs: 3.9 cm asc Aorta Diam: 3.6 cm FS: 25.0 % Ao Arch Diam (Prox Trans): 3.4 cm EPSS: 0.93 cm IVSd: 0.90 cm LVPWd: 0.95 cm LV vines. diameter/BSA (cm/m^2): 2.3 LV sys. diameter/BSA (cm/m^2): 1.7 LA A2 area: 19.1 cm2 RA long axis: 5.0 cm LA A4 area: 15.4 cm2 RA area: 15.7 cm2 LA length (vol): 4.8 cm RA vol: 42.6 ml LA vol: 52.5 ml RA : 19.0 ml/m2 LA vol index: 23.5 ml/m2 TAPSE: 2.0 cm Doppler Measurements & Calculations Ao V2 max: 125.2 cm/sec LVOT Max Michael: 82.1 cm/sec Ao V2 mean: 91.0 cm/sec LV V1 max P.7 mmHg Ao max P.3 mmHg LV V1 VTI: 15.9 cm Ao mean P.6 mmHg ELENA(I,D): 1.6 cm2 Ao V2 VTI: 25.8 cm ELENA(V,D): 1.7 cm2 sev ratio: 0.62 ELENA indexed to BSA (cm^2/m^2): 0.71 MV E max michael: 54.5 cm/sec SV(LVOT): 40.9 ml MV A max michael: 78.2 cm/sec MV E/A: 0.70 Lat Peak E' Michael: 8.6 cm/sec E/E' lat: 6.3 MV dec time: 0.29 sec _ Electronically signed by: Marina Mendiola M.D. on Reading Physician:01/14/2020 12:31 AM
[2020-01-13 10:01] LABS: Add Manual Diff / Slide Review NO; Basophils Absolute Auto 100 /uL (0-100); Basophils Percent Auto 0.7 % (0-2); Eosinophils Absolute Auto 200 /uL (0-450); Eosinophils Percent Auto 2.6 % (2-4); Hematocrit 38.9 % (36-46); Lymphocytes Absolute Auto 1000 /uL (1100-4500); Lymphocytes Percent Auto 11.3 % (25-40); Mean Corpuscular HGB Conc 33.4 % (30-36); Mean Corpuscular Hemoglobin 30.9 PG (26-34); Mean Corpuscular Volume 92.5 fL (80-100); Monocytes Absolute Auto 500 /uL (0-900); Monocytes Percent Auto 6.2 % (3-14); Neutrophils Absolute Auto 7000 /uL (1500-7000); Neutrophils Percent Auto 79.2 % (50-75); Platelet Count 278 X10^3/uL (150-400); Red Blood Cell Count 4.21 X10^6/uL (4.0-5.2); Red Cell Distribution Width 13.6 % (11.6-14.8); White Blood Cell Count 8.8 X10^3/uL (4.5-11.0)
[2020-01-13 10:38] LABS: Alanine Aminotransferase 33 IU/L (<35); Albumin 4.2 g/dL (3.5-5.0); Albumin Globulin Ratio 1.4 (1.0-2.8); Alkaline Phosphatase 60 U/L (38-126); Aspartate Aminotransferase 30 IU/L (14-36); BUN Creatinine Ratio 21.6 (6-22); Bilirubin Total 0.3 mg/dL (0.2-1.3); Blood Urea Nitrogen 19 mg/dL (7-17); Calcium 9.5 mg/dL (8.4-10.2); Carbon Dioxide 30 mmol/L (22-32); Chloride 97 mmol/L (98-107); Estimated Glomerular Filt Rate > 60.0 mL/min (>60); Glucose 118 mg/dL (80-110); HEMOLYSIS < 15 (0-50); Potassium 4.2 mmol/L (3.4-5.1); Sodium 137 mmol/L (137-145); Total Protein 7.2 g/dL (6.3-8.2)
[2020-01-13 10:52] LABS: Free T4, Direct Thyroxine 1.01 ng/dL (0.78-2.19)
== END ==
PROVIDERS: PCP Internal Medicine; Referring Provider Internal Medicine; Visit Provider Internal Medicine
DX: I07.1 Rheumatic tricuspid insufficiency (principal); I77.89 Other specified disorders of arteries and arterioles; R60.9 Edema, unspecified; I10 Essential (primary) hypertension
CPT/HCPCS: 80053; 84439; 84443; 85025; 93306; Q9957

== ENCOUNTER → 2020-06-29 10:13 | Outpatient (CLI) | payer MEDICARE, OTHER, SELFPAY ==
[2020-06-29 11:55] LABS: Alanine Aminotransferase 30 IU/L (<35); Albumin 4.4 g/dL (3.5-5.0); Albumin Globulin Ratio 1.5 (1.0-2.8); Alkaline Phosphatase 71 U/L (38-126); Aspartate Aminotransferase 25 IU/L (14-36); BUN Creatinine Ratio 19.5 (6-22); Bilirubin Total 0.4 mg/dL (0.2-1.3); Blood Urea Nitrogen 15 mg/dL (7-17); Calcium 9.5 mg/dL (8.4-10.2); Carbon Dioxide 32 mmol/L (22-32); Chloride 93 mmol/L (98-107); Estimated Glomerular Filt Rate > 60.0 mL/min (>60); Glucose 121 mg/dL (80-110); HEMOLYSIS < 15 (0-50); Sodium 132 mmol/L (137-145); Total Protein 7.4 g/dL (6.3-8.2)
== END ==
PROVIDERS: PCP Internal Medicine; Referring Provider Internal Medicine; Visit Provider Internal Medicine
DX: I10 Essential (primary) hypertension (principal); R60.9 Edema, unspecified
CPT/HCPCS: 36415; 80053

== ENCOUNTER → 2020-10-06 10:11 | Outpatient (CLI) | payer MEDICARE, OTHER, SELFPAY ==
--- NOTE | 2020-10-06 | DI.MG.S_ITS ---
BILATERAL DIGITAL SCREENING MAMMOGRAM 3D/2D WITH CAD: 10/06/2020 CLINICAL: Routine screening. Family history of breast cancer. Comparison is made to exams dated: 09/29/2019 mammogram, 07/21/2018 mammogram, and 07/09/2017 mammogram - [facility]. There are scattered fibroglandular elements in both breasts. Current study was also evaluated with a Computer Aided Detection (CAD) system. No significant masses, calcifications, or other findings are seen in either breast. There has been no significant interval change. IMPRESSION: NEGATIVE There is no mammographic evidence of malignancy. A 1 year screening mammogram is recommended. This exam was interpreted at Station ID: [id number]. NOTE: For mammograms, a report in lay terms will be sent to the patient. Approximately 15% of breast malignancies will not be visualized mammographically. In the management of a palpable breast mass, a negative mammogram must not discourage biopsy of a clinically suspicious lesion. Electronically Signed By: Fermin morales/cristy:10/06/2020 12:13:31 letter sent: Normal Exam ACR BI-RADS Category 1: Negative 3341F
== END ==
PROVIDERS: PCP Internal Medicine; Referring Provider Internal Medicine; Visit Provider Internal Medicine
DX: Z12.31 Encounter for screening mammogram for malignant neoplasm of breast (principal); Z80.3 Family history of malignant neoplasm of breast
CPT/HCPCS: 77063; 77067

== ENCOUNTER → 2021-02-19 09:35 | Outpatient (CLI) | payer MEDICARE, OTHER, SELFPAY ==
[2021-02-19 11:10] LABS: Alanine Aminotransferase 39 IU/L (<35); Albumin 4.1 g/dL (3.5-5.0); Albumin Globulin Ratio 1.4 (1.0-2.8); Alkaline Phosphatase 64 U/L (38-126); Aspartate Aminotransferase 30 IU/L (14-36); BUN Creatinine Ratio 16.3 (6-22); Bilirubin Total 0.5 mg/dL (0.2-1.3); Blood Urea Nitrogen 13 mg/dL (7-17); Calcium 9.6 mg/dL (8.4-10.2); Carbon Dioxide 31 mmol/L (22-32); Chloride 93 mmol/L (98-107); Estimated Glomerular Filt Rate > 60.0 mL/min (>60); Glucose 125 mg/dL (80-110); HEMOLYSIS < 15 (0-50); Potassium 4.2 mmol/L (3.4-5.1); Sodium 133 mmol/L (137-145); Total Protein 7.1 g/dL (6.3-8.2)
== END ==
PROVIDERS: PCP Internal Medicine; Referring Provider Internal Medicine; Visit Provider Internal Medicine
DX: I10 Essential (primary) hypertension (principal); R60.9 Edema, unspecified
CPT/HCPCS: 36415; 80053

== ENCOUNTER → 2021-07-20 13:00 | Outpatient (CLI) | payer MEDICARE, OTHER, SELFPAY ==
[2021-07-20] MEDS: COVID-19 VACC #3, MRNA(MOD) 50 MCG/0.25 ML VIAL IM (13:07)
== END ==
PROVIDERS: PCP Internal Medicine; Visit Provider Internal Medicine
DX: Z23 Encounter for immunization (principal)
CPT/HCPCS: 0013A; 91301

== ENCOUNTER → 2021-08-13 11:57 | Outpatient (CLI) | payer MEDICARE, OTHER, SELFPAY ==
[2021-08-13 14:12] LABS: Alanine Aminotransferase 46 IU/L (<35); Albumin 4.4 g/dL (3.5-5.0); Albumin Globulin Ratio 1.7 (1.0-2.8); Alkaline Phosphatase 63 U/L (38-126); Aspartate Aminotransferase 33 IU/L (14-36); BUN Creatinine Ratio 19.3 (6-22); Bilirubin Total 0.4 mg/dL (0.2-1.3); Blood Urea Nitrogen 16 mg/dL (7-17); Carbon Dioxide 31 mmol/L (22-32); Chloride 93 mmol/L (98-107); Estimated Glomerular Filt Rate > 60.0 mL/min (>60); Globulin 2.6 g/dL (1.7-4.1); Glucose 115 mg/dL (80-110); HEMOLYSIS < 15 (0-50); Potassium 4.3 mmol/L (3.4-5.1); Sodium 133 mmol/L (137-145)
== END ==
PROVIDERS: PCP Internal Medicine; Referring Provider Internal Medicine; Visit Provider Internal Medicine
DX: I10 Essential (primary) hypertension (principal); R60.9 Edema, unspecified
CPT/HCPCS: 36415; 80053

== ENCOUNTER → 2021-11-01 14:11 | Outpatient (CLI) | payer MEDICARE, OTHER, SELFPAY ==
--- NOTE | 2021-11-01 14:15 | DI.MG.S_ITS ---
BILATERAL DIGITAL SCREENING MAMMOGRAM 3D/2D WITH CAD: 11/01/2021 CLINICAL: Routine screening. Family history of breast cancer. Comparison is made to exams dated: 10/06/2020 mammogram, 09/29/2019 mammogram, and 07/21/2018 mammogram - [facility]. There are scattered fibroglandular elements in both breasts. Current study was also evaluated with a Computer Aided Detection (CAD) system. No significant masses, calcifications, or other findings are seen in either breast. There has been no significant interval change. IMPRESSION: NEGATIVE There is no mammographic evidence of malignancy. A 1 year screening mammogram is recommended. This exam was interpreted at Station ID: [id number]. NOTE: For mammograms, a report in lay terms will be sent to the patient. Approximately 15% of breast malignancies will not be visualized mammographically. In the management of a palpable breast mass, a negative mammogram must not discourage biopsy of a clinically suspicious lesion. Electronically Signed By: Fermin morales/cristy:11/02/2021 15:38:30 letter sent: Normal Exam ACR BI-RADS Category 1: Negative 3341F
== END ==
PROVIDERS: PCP Internal Medicine; Referring Provider Internal Medicine; Visit Provider Internal Medicine
DX: Z12.31 Encounter for screening mammogram for malignant neoplasm of breast (principal); Z80.3 Family history of malignant neoplasm of breast
CPT/HCPCS: 77063; 77067

== ENCOUNTER → 2022-02-11 09:28 | Outpatient (CLI) | payer MEDICARE, OTHER, SELFPAY ==
[2022-02-11 10:49] LABS: BUN Creatinine Ratio 24.1 (6-22); Blood Urea Nitrogen 20 mg/dL (7-17); Calcium 8.9 mg/dL (8.4-10.2); Carbon Dioxide 28 mmol/L (22-32); Chloride 94 mmol/L (98-107); Estimated Glomerular Filt Rate > 60 mL/min (>60); Glucose 127 mg/dL (80-110); Sodium 132 mmol/L (137-145)
[2022-02-11 10:53] LABS: HEMOLYSIS 42 (0-50)
== END ==
PROVIDERS: PCP Internal Medicine; Referring Provider Internal Medicine; Visit Provider Internal Medicine
DX: I10 Essential (primary) hypertension (principal)
CPT/HCPCS: 36415; 80048

== ENCOUNTER → 2022-11-28 09:58 | Outpatient (CLI) | payer MEDICARE, OTHER, SELFPAY ==
--- NOTE | 2022-11-28 | DI.MG.S_ITS ---
BILATERAL DIGITAL SCREENING MAMMOGRAM 3D/2D WITH CAD: 11/28/2022 CLINICAL: Routine screening. Family history of breast cancer. Comparison is made to exams dated: 11/01/2021 mammogram, 10/06/2020 mammogram, and 09/29/2019 mammogram - [facility]. There are scattered areas of fibroglandular density in both breasts (category b / 25%-50% glandular tissue). Current study was also evaluated with a Computer Aided Detection (CAD) system. There is a possible developing irregular high density asymmetry in the left breast middle depth lateral region seen on the craniocaudal view only. This is more prominent and correlates with surgery. No other significant masses, calcifications, or other findings are seen in either breast. IMPRESSION: INCOMPLETE: NEEDS ADDITIONAL IMAGING EVALUATION The possible developing irregular high density asymmetry in the left breast is indeterminate. Additional views with possible ultrasound are recommended. Based on the Tyrer Cuzick model (a risk assessment model) the patient's lifetime risk is 15.4% and her 10 year risk is 0.0%. According to the ACR, ACS, and NCCN guidelines, an annual breast MRI exam along with mammogram is recommended if the patient's lifetime risk is 20% or greater. This exam was interpreted at Station ID: [id number]. NOTE: For mammograms, a report in lay terms will be sent to the patient. Approximately 15% of breast malignancies will not be visualized mammographically. In the management of a palpable breast mass, a negative mammogram must not discourage biopsy of a clinically suspicious lesion. Electronically Signed By: Angie king/cristy:11/28/2022 13:12:44 letter sent: Additional Imaging Needed ACR BI-RADS Category 0: Incomplete 3340F
== END ==
PROVIDERS: PCP Internal Medicine; Referring Provider Internal Medicine; Visit Provider Internal Medicine
DX: Z12.31 Encounter for screening mammogram for malignant neoplasm of breast (principal)
CPT/HCPCS: 77063; 77067

== ENCOUNTER → 2022-12-24 09:12 | Outpatient (CLI) | payer MEDICARE, OTHER, SELFPAY ==
--- NOTE | 2022-12-24 | DI.MG.S_ITS ---
UNILATERAL LEFT DIGITAL DIAGNOSTIC MAMMOGRAM 3D/2D WITH ADDITIONAL VIEWS: 12/24/2022 CLINICAL: Additional evaluation requested from prior study. Comparison is made to exams dated: 11/28/2022 mammogram, 11/01/2021 mammogram, and 10/06/2020 mammogram - [facility]. There are scattered areas of fibroglandular density in the left breast (category b / 25%-50% glandular tissue). The previously described possible developing irregular asymmetry in the left breast middle depth lateral region seen on the craniocaudal view only is not confirmed in additional views and appears less prominent and decreased in size. This appears to correlate with site of previous surgery. No other significant masses or calcifications are seen in the breast. IMPRESSION: INCOMPLETE: NEEDS ADDITIONAL IMAGING EVALUATION The possible developing irregular asymmetry in the left breast is indeterminate. An ultrasound is recommended for further evaluation and is scheduled to immediately follow this examination. Based on the Tyrer Cuzick model (a risk assessment model) the patient's lifetime risk is 15.4% and her 10 year risk is 0.0%. According to the ACR, ACS, and NCCN guidelines, an annual breast MRI exam along with mammogram is recommended if the patient's lifetime risk is 20% or greater. This exam was interpreted at Station ID: [id number]. NOTE: For mammograms, a report in lay terms will be sent to the patient. Approximately 15% of breast malignancies will not be visualized mammographically. In the management of a palpable breast mass, a negative mammogram must not discourage biopsy of a clinically suspicious lesion. Electronically Signed By: Sung Murguia M.D. aty/:12/25/2022 09:58:25 Entry: - 12/25/2022 09:58:25 ACR BI-RADS Category 0: Incomplete 3340F
--- NOTE | 2022-12-24 10:16 | DI.US.S_ITS ---
Patient Name: ROSEANN JOYA date: 1945 Sex: F Attending Physician: Souleymane Indications: Date: 12/24/2022 10:49 At the request of: MATTHEW JONES Procedure: US breast LT limited ULTRASOUND OF LEFT BREAST: 12/24/2022 CLINICAL: Patient returns today to evaluate a focal asymmetry in the left breast. Comparison is made to exams dated: 12/24/2022 mammogram, 11/28/2022 mammogram, 11/01/2021 mammogram, and 10/06/2020 mammogram - [facility]. Color flow and real-time ultrasound of the left breast were performed. Poe scale images of the real-time examination were reviewed. No significant abnormalities were seen sonographically in the left breast. IMPRESSION: NEGATIVE There is no sonographic evidence of malignancy. There is no abnormality seen in the left breast to correspond with the mammography finding which likely represents a scar from remote surgical procedure. A 1 year screening mammogram is recommended. Findings and recommendations were conveyed to the patient during today's evaluation. This exam was interpreted at Station ID: [id number]. Electronically Signed By: Sung Murguia M.D. aty/:12/24/2022 10:49:57 letter sent: Normal Exam Ultrasound BI-RADS: 1 Negative Continued Report - Page 2 of 2 Patient Name: ROSEANN JOYA date: 1945 Sex: F Attending Physician: Souleymane Indications: Date: 12/24/2022 10:49 At the request of: MATTHEW JONES Procedure: US breast LT limited
== END ==
PROVIDERS: PCP Internal Medicine; Referring Provider Internal Medicine; Visit Provider Internal Medicine
DX: R92.8 Other abnormal and inconclusive findings on diagnostic imaging of breast (principal)
CPT/HCPCS: 76642; 77065; G0279

== ENCOUNTER → 2023-02-04 09:10 | Outpatient (CLI) | payer MEDICARE, OTHER, SELFPAY ==
[2023-02-04 11:41] LABS: Alanine Aminotransferase 93 IU/L (<35); Albumin 4.2 g/dL (3.5-5.0); Albumin Globulin Ratio 1.4 (1.0-2.8); Alkaline Phosphatase 73 U/L (38-126); Aspartate Aminotransferase 83 IU/L (14-36); BUN Creatinine Ratio 22.2 (6-22); Bilirubin Total 0.8 mg/dL (0.2-1.3); Blood Urea Nitrogen 20 mg/dL (7-17); Calcium 9.1 mg/dL (8.4-10.2); Carbon Dioxide 32 mmol/L (22-32); Chloride 93 mmol/L (98-107); Estimated Glomerular Filt Rate > 60 mL/min (>60); Globulin 2.9 g/dL (1.7-4.1); Glucose 142 mg/dL (80-110); HEMOLYSIS < 15 (0-50); Potassium 4.2 mmol/L (3.4-5.1); Sodium 132 mmol/L (137-145); Total Protein 7.1 g/dL (6.3-8.2)
== END ==
PROVIDERS: PCP Internal Medicine; Referring Provider Internal Medicine; Visit Provider Internal Medicine
DX: I10 Essential (primary) hypertension (principal); R60.9 Edema, unspecified
CPT/HCPCS: 36415; 80053

== ENCOUNTER → 2023-02-18 08:49 | Outpatient (CLI) | payer MEDICARE, OTHER, SELFPAY ==
--- NOTE | 2023-02-18 08:50 | DI.US.S_ITS ---
PROCEDURE: US ABDOMEN LIMITED INDICATIONS: CHRONIC HEPATITIS TECHNIQUE: Real-time focused scanning was performed of the abdomen, with image documentation. COMPARISON: None. FINDINGS: Liver measures 21 cm with significantly increased echogenicity. There is posterior attenuation. Suspected cyst measuring 3.2 x 2.9 cm in the anterior right lobe. The gallbladder is unremarkable. CBD measures 5 mm, within normal limits. IMPRESSION: Significantly increased hepatic echogenicity, most commonly due to steatosis. There is hepatomegaly. Posterior attenuation due to hepatic echogenicity limits evaluation of the deep field. Consider future HCC screening if clinically indicated. Dictated by: Deven Schwab M.D. on 02/18/2023 at 10:55 Approved by: Deven Schwab M.D. on 02/18/2023 at 10:56
== END ==
PROVIDERS: PCP Internal Medicine; Referring Provider Internal Medicine; Visit Provider Internal Medicine
DX: K73.9 Chronic hepatitis, unspecified (principal); R16.0 Hepatomegaly, not elsewhere classified
CPT/HCPCS: 76705

== ENCOUNTER → 2023-08-05 08:11 | Outpatient (CLI) | payer MEDICARE, OTHER, SELFPAY ==
[2023-08-05 09:17] LABS: Add Manual Diff / Slide Review NO; Basophils Absolute Auto 100 /uL (0-100); Basophils Percent Auto 0.7 % (0-2); Eosinophils Absolute Auto 200 /uL (0-450); Eosinophils Percent Auto 2.8 % (2-4); Hematocrit 39.8 % (36-46); Hemoglobin 13.4 g/dL (12.0-16.0); Lymphocytes Absolute Auto 1200 /uL (1100-4500); Lymphocytes Percent Auto 13.2 % (25-40); Mean Corpuscular HGB Conc 33.6 % (30-36); Mean Corpuscular Hemoglobin 31.3 PG (26-34); Mean Corpuscular Volume 93.2 fL (80-100); Monocytes Absolute Auto 500 /uL (0-900); Neutrophils Absolute Auto 6800 /uL (1500-7000); Neutrophils Percent Auto 77.3 % (50-75); Platelet Count 245 X10^3/uL (150-400); Red Blood Cell Count 4.27 X10^6/uL (4.0-5.2); Red Cell Distribution Width 13.4 % (11.6-14.8); White Blood Cell Count 8.8 X10^3/uL (4.5-11.0)
[2023-08-05 09:58] LABS: Blood Urea Nitrogen 20 mg/dL (7-17); Calcium 10.1 mg/dL (8.4-10.2); Carbon Dioxide 33 mmol/L (22-32); Chloride 96 mmol/L (98-107); Estimated Glomerular Filt Rate > 60 mL/min (>60); Glucose 127 mg/dL (80-110); HEMOLYSIS < 15 (0-50); Potassium 4.6 mmol/L (3.4-5.1); Sodium 135 mmol/L (137-145)
== END ==
PROVIDERS: PCP Internal Medicine; Referring Provider Internal Medicine; Visit Provider Internal Medicine
DX: I10 Essential (primary) hypertension (principal); Z68.41 Body mass index [BMI] 40.0-44.9, adult
CPT/HCPCS: 36415; 80048; 85025

== ENCOUNTER → 2023-08-11 09:13 | Outpatient (CLI) | payer MEDICARE, OTHER, SELFPAY ==
[2023-08-11 12:03] LABS: Alanine Aminotransferase 47 IU/L (<35); Albumin 4.1 g/dL (3.5-5.0); Albumin Globulin Ratio 1.4 (1.0-2.8); Aspartate Aminotransferase 39 IU/L (14-36); Bilirubin Total 0.6 mg/dL (0.2-1.3); Bilirubin Unconjugated 0.3 mg/dL (0.0-1.1); Globulin 2.9 g/dL (1.7-4.1); HEMOLYSIS < 15 (0-50)
== END ==
PROVIDERS: PCP Internal Medicine; Visit Provider Internal Medicine
DX: K76.0 Fatty (change of) liver, not elsewhere classified (principal)
CPT/HCPCS: 80076

== ENCOUNTER → 2024-01-14 10:46 | Outpatient (CLI) | payer MEDICARE, OTHER, SELFPAY ==
--- NOTE | 2024-01-14 10:47 | DI.MG.S_ITS ---
BILATERAL DIGITAL SCREENING MAMMOGRAM 3D/2D WITH CAD: 01/14/2024 CLINICAL: Routine screening. Family history of breast cancer. Comparison is made to exams dated: 11/28/2022 mammogram, 11/01/2021 mammogram, and 10/06/2020 mammogram - [facility]. There are scattered areas of fibroglandular density in both breasts (category b / 25%-50% glandular tissue). Current study was also evaluated with a Computer Aided Detection (CAD) system. There are benign post operative findings in the left breast. No significant masses, calcifications, or other findings are seen in either breast. There has been no significant interval change. IMPRESSION: BENIGN There is no mammographic evidence of malignancy. A 1 year screening mammogram is recommended. Based on the Tyrer Cuzick model (a risk assessment model) the patient's lifetime risk is 14.1% and her 10 year risk is 0.0%. According to the ACR, ACS, and NCCN guidelines, an annual breast MRI exam along with mammogram is recommended if the patient's lifetime risk is 20% or greater. This exam was interpreted at Station ID: [id number]. NOTE: For mammograms, a report in lay terms will be sent to the patient. Approximately 15% of breast malignancies will not be visualized mammographically. In the management of a palpable breast mass, a negative mammogram must not discourage biopsy of a clinically suspicious lesion. Electronically Signed By: Monica Maier M.D., Ph.D. peng/cristy:01/14/2024 12:59:43 letter sent: Normal Exam ACR BI-RADS Category 2: Benign Finding(s) 3342F
== END ==
PROVIDERS: PCP Internal Medicine; Referring Provider Internal Medicine; Visit Provider Internal Medicine
DX: Z12.31 Encounter for screening mammogram for malignant neoplasm of breast (principal); Z80.3 Family history of malignant neoplasm of breast; R92.323 Mammographic fibroglandular density, bilateral breasts
CPT/HCPCS: 77063; 77067

== ENCOUNTER → 2024-02-03 08:47 | Outpatient (CLI) | payer MEDICARE, OTHER, SELFPAY ==
[2024-02-03 10:39] LABS: Alanine Aminotransferase 46 IU/L (<35); Albumin 4.1 g/dL (3.5-5.0); Albumin Globulin Ratio 1.8 (1.0-2.8); Alkaline Phosphatase 67 U/L (38-126); Aspartate Aminotransferase 39 IU/L (14-36); BUN Creatinine Ratio 18.9 (6-22); Bilirubin Total 0.6 mg/dL (0.2-1.3); Blood Urea Nitrogen 17 mg/dL (7-17); Carbon Dioxide 31 mmol/L (22-32); Chloride 99 mmol/L (98-107); Cholesterol 207 mg/dL (140-199); Estimated Glomerular Filt Rate > 60 mL/min (>60); Globulin 2.3 g/dL (1.7-4.1); Glucose 145 mg/dL (80-110); HDL Cholesterol 61 mg/dL (40-60); HEMOLYSIS < 15 (0-50); LDL Cholesterol Calculated 123 mg/dL (<100); Potassium 4.6 mmol/L (3.4-5.1); Sodium 136 mmol/L (137-145); Total Protein 6.4 g/dL (6.3-8.2); Triglycerides 113 mg/dL (35-150)
== END ==
PROVIDERS: PCP Internal Medicine; Referring Provider Internal Medicine; Visit Provider Internal Medicine
DX: K76.0 Fatty (change of) liver, not elsewhere classified (principal); I10 Essential (primary) hypertension
CPT/HCPCS: 36415; 80053; 80061

== ENCOUNTER → 2024-07-13 14:57 | Outpatient (CLI) | payer MEDICARE, OTHER, SELFPAY ==
--- NOTE | 2024-07-13 14:58 | DI.RAD.S_ITS ---
PROCEDURE: XR LUMBAR SPINE MIN 4V INDICATIONS: BACK PAIN TECHNIQUE: 5 views of the lumbar spine were acquired, including bilateral oblique views. COMPARISON: [facility], , XR LUMBAR SPINE MIN 4V, 10/29/2018, 9:48. FINDINGS: Bones: Generalized decreased osseous mineralization noted. Convex left lumbar scoliosis noted. Wedge-shaped anterior height loss noted at L1. Disc space narrowing and hypertrophic facet joints present throughout the exam particularly in the lower lumbar spine Soft tissues: Overlying bowel gas pattern is normal. No suspicious soft tissue calcifications. Oblique images: No pars defects. IMPRESSION: Osteopenic L1 compression fracture, uncertain age. Degenerative disc disease, arthropathy and thoracolumbar levoscoliosis Approved by: Andrea Brown M.D. on 07/13/2024 at 17:13
== END ==
PROVIDERS: PCP Internal Medicine; Referring Provider Physical Medicine & Rehabilitation; Visit Provider Physical Medicine & Rehabilitation
DX: M47.816 Spondylosis without myelopathy or radiculopathy, lumbar region (principal); M51.369 Other intervertebral disc degeneration, lumbar region without mention of lumbar back pain or lower extremity pain; M41.9 Scoliosis, unspecified; M48.56XA Collapsed vertebra, not elsewhere classified, lumbar region, initial encounter for fracture
CPT/HCPCS: 72110

== ENCOUNTER → 2024-07-19 12:54 | Outpatient (CLI) | payer MEDICARE, OTHER, SELFPAY ==
--- NOTE | 2024-07-19 12:58 | DI.MRI.S_ITS ---
PROCEDURE: MR LUMBAR SPINE WO CON INDICATIONS: spinal fx TECHNIQUE: Noncontrast sagittal T1 spin echo and T2 fast echo, sagittal STIR, and T2 fast spin echo through the lumbar spine. In cases with scoliosis, additional coronal T2 fast spin echo may be performed. COMPARISON: [facility], CR, XR LUMBAR SPINE MIN 4V, 07/13/2024, 15:03. [facility], CR, XR LUMBAR SPINE MIN 4V, 10/29/2018, 9:48. [facility], MR, MR LUMBAR SPINE WO CON, 01/05/2019, 12:05. FINDINGS: Image quality: Excellent. Alignment and Curvature: 5 lumbar type vertebral bodies are present by plain film. There is loss of normal lumbar lordosis. Bone Marrow: Marrow is of normal overall signal. No acute vertebral body compression fractures. Moderate reactive signal within the endplates adjacent to the L1-L2 and L2-L3 intervertebral disc. Mild reactive signal within the remaining lumbar and lower thoracic endplates. Mild chronic wedging L1 and L3. Spinal Cord: Conus medullaris terminates at the lower L1 level. Visualized cord demonstrates normal signal and size. Paraspinous Soft Tissues: No paravertebral masses. T12-L1: Normal appearance. L1-L2: Moderate disc desiccation. Mild diffuse disc bulge. Mild canal stenosis. Mild bilateral foraminal stenosis. No significant change. L2-L3: Moderate disc desiccation. Mild diffuse disc bulge. Mild facet and ligamentum flavum hypertrophy. Mild epidural lipomatosis. Mild canal stenosis. Mild bilateral foraminal stenosis. No significant change. L3-L4: Moderate disc desiccation. Mild diffuse disc bulge. Mild facet and ligamentum flavum hypertrophy. Mild epidural lipomatosis. Mild canal stenosis. Mild bilateral foraminal stenosis. No significant change. L4-L5: Moderate disc desiccation. Mild facet and ligamentum flavum hypertrophy. Mild epidural lipomatosis. Mild canal stenosis. Mild bilateral foraminal stenosis. No significant change. L5-S1: Mild bilateral facet hypertrophy. Mild disc desiccation and diffuse disc bulge. No significant canal nor foraminal stenosis. No significant change. IMPRESSION: 1. Multilevel degenerative disc and facet disease, as well as ligamentum flavum hypertrophy and epidural lipomatosis. 2. Mild multilevel canal and foraminal stenoses. No neural impingement. Dictated by: Enrique Bland M.D. on 07/19/2024 at 16:17 Approved by: Enrique Bland M.D. on 07/19/2024 at 16:22
== END ==
PROVIDERS: PCP Internal Medicine; Referring Provider Physical Medicine & Rehabilitation; Visit Provider Physical Medicine & Rehabilitation
DX: M47.27 Other spondylosis with radiculopathy, lumbosacral region (principal); M47.26 Other spondylosis with radiculopathy, lumbar region; M51.16 Intervertebral disc disorders with radiculopathy, lumbar region; M51.17 Intervertebral disc disorders with radiculopathy, lumbosacral region; M48.061 Spinal stenosis, lumbar region without neurogenic claudication; E88.2 Lipomatosis, not elsewhere classified
CPT/HCPCS: 72148

== ENCOUNTER → 2024-08-03 09:36 | Outpatient (CLI) | payer MEDICARE, OTHER, SELFPAY ==
[2024-08-03 11:17] LABS: Alanine Aminotransferase 52 IU/L (<35); Albumin 4.3 g/dL (3.5-5.0); Albumin Globulin Ratio 1.6 (1.0-2.8); Alkaline Phosphatase 67 U/L (38-126); Aspartate Aminotransferase 40 IU/L (14-36); BUN Creatinine Ratio 23.2 (6-22); Bilirubin Total 0.6 mg/dL (0.2-1.3); Blood Urea Nitrogen 22 mg/dL (7-17); Calcium 9.9 mg/dL (8.4-10.2); Carbon Dioxide 31 mmol/L (22-32); Chloride 95 mmol/L (98-107); Estimated Glomerular Filt Rate > 60 mL/min (>60); Globulin 2.7 g/dL (1.7-4.1); Glucose 141 mg/dL (80-110); HEMOLYSIS 25 (0-50); Sodium 134 mmol/L (137-145)
[2024-08-03 11:19] LABS: Potassium 4.5 mmol/L (3.4-5.1)
== END ==
PROVIDERS: PCP Internal Medicine; Referring Provider Internal Medicine; Visit Provider Internal Medicine
DX: I10 Essential (primary) hypertension (principal); K76.0 Fatty (change of) liver, not elsewhere classified
CPT/HCPCS: 36415; 80053

== ENCOUNTER 2024-09-16 12:45 | Outpatient (CLI) | payer MEDICARE, OTHER, SELFPAY ==
[2024-09-16] VITALS (8 sets, daily range): BP systolic 152–228; BP diastolic 69–97; PULSE 52–62; RESP 14–21; TEMP 36.3; O2SAT 97–100
--- NOTE | 2024-09-16 12:47 | DI.RAD.S_ITS ---
PROCEDURE: PAIN L INTERLAMINAR/CAUDAL INJ INDICATIONS: Para Right L3/4 TL ARTI COMPARISON: None. FINDINGS/IMPRESSION: Fluoroscopic spot filming was performed to verify placement of spinal needles at the L3-4 level(s), as labeled on the films. Appropriate location(s) of the needle tip(s) was confirmed by injection of iodinated contrast. Dictated by: Gely Reese M.D. on 09/16/2024 at 16:44 Approved by: Gely Reese M.D. on 09/16/2024 at 16:44
[2024-09-16] MEDS: MIDAZOLAM 2 MG/2 ML VIAL IV (14:14)
[2024-09-16] MEDS: DEXAMETHASONE 10 MG/ML VIAL INJ (14:17)
[2024-09-16] MEDS: BUPIVACAINE 0.25% (PF) VIAL 2 ML INJ (14:17)
[2024-09-16] MEDS: BETAMETHASONE 30 MG/5 ML MDV 12 MG INJ (14:18)
[2024-09-16] MEDS: iopamidoL 15 ML VIAL 3 ML INJ (14:18)
--- NOTE | 2024-09-16 14:27 | P.PCN_ITS ---
Date/Time/Diagnoses Date of procedure: 09/16/24 Time of procedure: 14:27 Pre-procedure diagnosis: 1. HNP WITH RADICULAR FEATURES, 2. MULTILEVEL CENTRAL STENOSIS, Post-procedure diagnosis: same Procedure Notes Procedure: 1. FLUOROSCOPICALLY GUIDED CONTRAST CONTROLLED INTERLAMINAR EPIDURAL STEROID INJECTION - L3/4 Indications: Aline is referred by Dr. Comer for treatment of Bilateral Foraminal Stenosis L>R LE symptoms. Physician: Dayday Fofana Total Fluoroscopy time (seconds): 8 Total sedation minutes: 10 Complications: none Procedure in detail & Post-procedure care: FINDINGS Multilevel Central Spinal Stenosis with Nerve Root Compression DESCRIPTION OF PROCEDURE Fluoroscopically guided, contrast-controlled L3/4 translaminar epidural steroid injection. Following review of allergy and review of potential side effects and complications, including, but not necessarily limited to, infection, allergic reaction, local tissue breakdown, temporary as well as permanent nerve injury, paralysis, stroke and possible , the patient indicated that the patient understood and agreed to proceed. An informed consent document was signed by the patient, witnessed by a nurse, and placed in the patient's chart. Additionally, other treatment options including modalities, medications, and physical therapy were reviewed with the patient. After review of previous anaesthesic history and IV conscious sedation the patient was deemed safe to proceed with today?s procedure with IV conscious sedation as ASA class II designation. Safety time-out was performed to confirm p atient ID, procedure to be performed and site of procedure. IV sedation was accomplished with a combination of 2mg of Versed was administered by the RN after DO order, titrated to patient comfort during the course of the procedure while the patient remained responsive to all verbal commands. In the prone position, following sterile prep and drape of the lumbar region, the L3/4 translaminar space was identified fluoroscopically. The skin was anesthetized via a 25-gauge, 1.5-inch needle with 1% lidocaine solution. At this point, a 22-gauge short bevel spinal needle was atraumatically introduced and advanced under fluoroscopic guidance into the region of the L3/4 translaminar space. Depth was confirmed on lateral view. Radiological data, including multiple fluoroscopic views of the lumbar spine, reveal a spinal needle at the L3/4 translaminar space. Lateral views then show placement of the needle in the epidural space. Subsequent views show contrast material flowing superiorly and inferiorly in the epidural space. No vascular or intrathecal uptake is observed. At this point, using loss of resistance technique with saline and air, the epidural space was entered. This was confirmed following negative aspiration with injection of approximately 1.5 cc of Isovue 200, showing excellent epidural flow without vascular or intrathecal uptake. At this point, 1cc of 1% lidocaine solution combined with 2cc or 10mg of dexamethasone and 6mg of betamethasone was injected without incident. The patient tolerated the procedure well without signs or symptoms of complications prior to transfer to the recovery area continued monitoring without incident. The patient was then transferred to the recovery area where they were observed for an appropriate period of time after the injection. The patient reported a VAS score of 6 prior to the procedure and a post- procedure VAS of 0. POST OP INSTRUCTIONS The patient was provided a Pain Log to continue to record their response to the target-specific procedure prior to follow-up visit with their referring physician. Additionally, specific post-injection care instructions and a contact number to our office were provided if concerns arise regarding possible complications associated with the procedure are suspected.
== END 2024-09-16 15:00 | disposition home or self-care (01) ==
PROVIDERS: PCP Internal Medicine; Referring Provider Physical Medicine & Rehabilitation; Visit Provider Physical Medicine & Rehabilitation
DX: M51.16 Intervertebral disc disorders with radiculopathy, lumbar region (principal); M48.061 Spinal stenosis, lumbar region without neurogenic claudication
CPT/HCPCS: 62323; 99152; J0702; J1100; J2250; J3490

== ENCOUNTER → 2025-01-31 08:55 | Outpatient (CLI) | payer MEDICARE, OTHER, SELFPAY ==
[2025-01-31 09:31] LABS: Alanine Aminotransferase 45 IU/L (<35); Albumin 4.4 g/dL (3.5-5.0); Albumin Globulin Ratio 1.5 (1.0-2.8); Alkaline Phosphatase 60 U/L (38-126); Aspartate Aminotransferase 35 IU/L (14-36); BUN Creatinine Ratio 25.3 (6-22); Bilirubin Total 0.7 mg/dL (0.2-1.3); Blood Urea Nitrogen 22 mg/dL (7-17); Calcium 9.6 mg/dL (8.4-10.2); Carbon Dioxide 27 mmol/L (22-32); Chloride 97 mmol/L (98-107); Estimated Glomerular Filt Rate > 60 mL/min (>60); Glucose 144 mg/dL (70-99); HEMOLYSIS 26 (0-50); Potassium 4.6 mmol/L (3.4-5.1); Sodium 134 mmol/L (137-145); Total Protein 7.4 g/dL (6.3-8.2)
== END ==
PROVIDERS: Family Provider Internal Medicine; PCP Internal Medicine; Referring Provider Internal Medicine; Visit Provider Internal Medicine
DX: I10 Essential (primary) hypertension (principal); K76.0 Fatty (change of) liver, not elsewhere classified
CPT/HCPCS: 36415; 80053

== ENCOUNTER → 2025-02-14 14:23 | Outpatient (CLI) | payer MEDICARE, OTHER, SELFPAY ==
--- NOTE | 2025-02-14 14:24 | DI.MG.S_ITS ---
MM screening mammo BI: 02/14/2025. BI-RADS: 1 CLINICAL: 80-year old female for bilateral screening mammogram. Tyrer-Cuzick lifetime risk of 2.7%. Current reported family history of breast cancer: mother. The patient had a prior left breast biopsy. PRIOR EXAMS: 01/14/2024, 12/24/2022, 11/28/2022, 11/01/2021, 10/06/2020, 09/29/2019. MAMMOGRAPHY TECHNIQUE: 2D and 3D (tomosynthesis) digital mammographic views obtained, with additional images as needed for full coverage. Current study was also evaluated with a Computer Aided Detection (CAD) system. DENSITY B. There are scattered areas of fibroglandular density. MAMMOGRAPHY FINDINGS Bilateral: No suspicious mass, asymmetry, microcalcification, or other abnormality seen. IMPRESSION: * No evidence of malignancy. RECOMMENDATIONS Bilateral * Annual screening mammography. OVERALL ASSESSMENT CATEGORY BI-RADS-1: Negative. The [employer] recommends annual screening mammography beginning at age 40 for women with average risk of breast cancer. ELECTRONICALLY SIGNED: Chandra Graves M.D. on 02/15/2025 at 08:17:28 AM PT Interpreting Station ID: [id number]
== END ==
PROVIDERS: PCP Internal Medicine; Referring Provider Internal Medicine; Visit Provider Internal Medicine
DX: Z12.31 Encounter for screening mammogram for malignant neoplasm of breast (principal); Z80.3 Family history of malignant neoplasm of breast
CPT/HCPCS: 77063; 77067

== ENCOUNTER 2025-02-25 14:30 | Outpatient (RCR) | payer MEDICARE, OTHER, SELFPAY ==
--- NOTE | 2024-12-14 16:19 | PT.OPPOC ---
Physical, Occupational & Speech Therapy At [facility] Current Diagnoses Morbid (severe) obesity due to excess calories (12/14/24) Other spondylosis with radiculopathy, lumbosacral region (12/14/24) Spondylosis without myelopathy or radiculopathy, lumbar region (12/14/24) Wedge compression fracture of first lumbar vertebra, initial encounter for closed fracture (12/14/24) Wedge compression fracture of third lumbar vertebra, initial encounter for closed fracture (12/14/24) Visit Care Team Role Provider Type Dario Comer MD Family Provider Physician Primary Care Provider Specialty: Internal Medicine Address: [address] [place] [address], [address], [address] Email: [email or web address] Dayday Fofana DO Attending Provider Physician Referring Provider Specialty: Interventional Radiology Physiatry Pain Management Address: [address] [place] [address], [id number] Email: [email or web address] Plan Of Care PT-OP-B Current Condition Start: 12/13/24 10:32 Freq: Status: Active Protocol: Document 12/14/24 15:03 [facility] (Rec: 12/14/24 16:57 [facility] [id number]) Current Condition History of Current Condition Onset Date 10-12 years Current Complaints LBP, neuropathy History of Current Condition Pt reports at the moment, she can sit w/o pain so can sew. Cannot be on her feet for longer than about 1 min d/t pain in back. has neuropathy that gets bad enough that it is painful so she can't walk. Knees can give her issues. Pt is working w/Dr. Fofana and has not had success since injections and seems like the last one had inc pain in hip and feet. Sometimes feels like almost crumbles d/t her knees . Takes Gabapentin and doesn't feel like it does a lot except help her sleep a little better. DId PT last time with bike, Estim w/heat, massage and some stretches and exercises and it helped. Pt reports she was playing golf, go for walks, do water aerobics then got to a point where she couldn't make it to the 9th hole so had ot give it up. THat was 10 to 12 years ago. Denies injury. Typically, wakes at 4 and sits in recliner and sometimes sleeps again. walks w/cane in the house now and when leaves the house uses a 4WW Treatment Goals Patient/Caregiver Goals Get exercises to work on, be able to walk (even short walks w/walker) PT-OP-T Assessment and Plan Start: 12/13/24 10:32 Freq: Status: Active Protocol: Document 12/14/24 15:03 [facility] (Rec: 12/14/24 16:57 [facility] [id number]) Physical Therapy Assessment Rehab Potential Rehabilitation Potential Good Evaluation Complexity Number of Personal Factors/Comorbidities 3 or More Number of Body Systems Impaired 4 or More Clinical Presentation at Evaluation Evolving Impairments Impairments Activity Tolerance,Balance, Functional Activities, Functional Mobility,Gait,Pain, Posture,ROM,Soft Tissue Mobility,Strength,Transfers Goals ELENA Impairment 48% Short Term Goal (STG) Pt will improve ELENA score to no greater than 40% to show improved functional ability. STG Duration 30 Head Strength And Conditioning Coach Goal (LTG) Pt will improve ELENA score to no greater than 30% to show improved functional ability. LTG Duration 03/10 sit to stand Impairment 6 in 30 sec Short Term Goal (STG) Pt will be able to do at least 8 sit to stands in 30 sec to show improve strength and dec risk for falls. STG Duration 30 Shelter Goal (LTG) Pt will be able to do at least 10 sit to stands in 30 sec based on age related norms to show improve strength and dec risk for falls. LTG Duration 7 2 min walk Short Term Goal (STG) Pt will do at least 350 ft in 2 min w/4WW STG Duration 01/28 Shelter Goal (LTG) Pt will be able to tolerate full 6 min walk test LTG Duration 03/08 Assessment Summary Assessment Pt presents w/LBP and L hip pain along w/neuropathy BLEs and overall dec activity tolerance d/t pain worsening over the past 10 years. She gets SOB w/small bouts of activity and is limited in standing to about 1 min d/t pain in her back, knees, L hip or BLEs. She is weak overall and does have significant gait impairments w/fwd flex trunk along w/dec LE clearance putting pt more risk for falls . She would benefit from skilled PT to work on LE/core strength, dec pain, improving posture and improving mobility . Physical Therapy Plan Frequency and Duration Frequency of Treatment 2x/Week Duration of treatment (weeks) 12 Plan of Care Start Date 12/14/24 Plan of Care End Date 03/08/25 Therapeutic Interventions Therapeutic Interventions Balance Training,Home Exercise Program,Joint Mobilizations, Manual Therapy,Neuromuscular Re-education,Patient/Caregiver Education,Self-Care/Home Management,Soft Tissue Mobilization,Therapeutic Activities,Therapeutic Exercises Modalities Cold Pack/Ice Massage,Electric Stimulation,Hot Packs, Traction- Mechanical, Ultrasound Next Visit Focus/Plan Next Note Type Treatment Note Next Visit Plan review exercises, try some standing exercises, DF strength, PF strength, core exercises, manual to LB ,estim w/heat Plan of Care Dates Plan of Care Start Date 12/14/24 Plan of Care End Date 03/08/25 Electronically Signed by: Jolly Addison, PT 12/15/24 [id number] If you are in agreement with this Plan of Care, please return a signed and dated copy. I have reviewed this Plan of Care and certify that the skilled therapy services above are required to meet the patient?s needs. Physician Signature Date Printed Name and Credentials Clinical Instructor Signature Printed Name and Credentials
--- NOTE | 2024-12-14 16:19 | PT.OIE ---
Current Diagnoses Morbid (severe) obesity due to excess calories (12/14/24) Other spondylosis with radiculopathy, lumbosacral region (12/14/24) Spondylosis without myelopathy or radiculopathy, lumbar region (12/14/24) Wedge compression fracture of first lumbar vertebra, initial encounter for closed fracture (12/14/24) Wedge compression fracture of third lumbar vertebra, initial encounter for closed fracture (12/14/24) Past Medical History (Last Reviewed 11/17/24 @ 14:32 by Dayday Fofana DO) Abnormal CXR (chest x-ray) (1985) Atypical ductal hyperplasia of left breast Body mass index (BMI) of 40.1 to 44.9 in adult (11/29/16) Chicken pox Chronic cough (1990) Compression fracture of L1 lumbar vertebra Compression fracture of L3 lumbar vertebra Dorsalgia (06/14/16) Essential hypertension (06/09/15) Facet arthropathy, lumbar Fatty liver disease, nonalcoholic Hayfever (1969) Hyperlipidemia (04/24/11) Lumbosacral spondylosis with radiculopathy Measles Morbid obesity due to excess calories (11/29/16) Mumps Peripheral edema (07/04/16) Rubella Past Surgical History (Last Reviewed 11/17/24 @ 14:32 by Dayday Fofana DO) History of lung surgery (1985) History of tonsillectomy (1950) Status post hysterectomy (1990) Visit Care Team Role Provider Type Dario Comer MD Family Provider Physician Primary Care Provider Specialty: Internal Medicine Address: [address] [place] [address], [address], [address] Email: [email or web address] Dayday Fofana DO Attending Provider Physician Referring Provider Specialty: Interventional Radiology Physiatry Pain Management Address: [address] [place] [address], [address] Email: [email or web address] Physical Therapy Initial Evaluation PT-OP-A Visit Information Start: 12/13/24 10:32 Freq: Status: Active Protocol: Document 12/14/24 15:03 [facility] (Rec: 12/14/24 16:57 [facility] [id number]) Out-Patient Physical Therapy Visit Information Visit Information Visit Type Initial Evaluation Visit Start Time 15:18 Visit Stop Time 16:03 Visit Number 1 (09/10) Number of TRAIL CONSTRUCTION WORKER Visits 0 PT-OP-B Current Condition Start: 12/13/24 10:32 Freq: Status: Active Protocol: Document 12/14/24 15:03 [facility] (Rec: 12/14/24 16:57 [facility] [id number]) Current Condition History of Current Condition Onset Date 10-12 years Current Complaints LBP, neuropathy History of Current Condition Pt reports at the moment, she can sit w/o pain so can sew. Cannot be on her feet for longer than about 1 min d/t pain in back. has neuropathy that gets bad enough that it is painful so she can't walk. Knees can give her issues. Pt is working w/Dr. Fofana and has not had success since injections and seems like the last one had inc pain in hip and feet. Sometimes feels like almost crumbles d/t her knees . Takes Gabapentin and doesn't feel like it does a lot except help her sleep a little better. DId PT last time with bike, Estim w/heat, massage and some stretches and exercises and it helped. Pt reports she was playing golf, go for walks, do water aerobics then got to a point where she couldn't make it to the 9th hole so had ot give it up. THat was 10 to 12 years ago. Denies injury. Typically, wakes at 4 and sits in recliner and sometimes sleeps again. walks w/cane in the house now and when leaves the house uses a 4WW Treatment Goals Patient/Caregiver Goals Get exercises to work on, be able to walk (even short walks w/walker) PT-OP-C Subjective Start: 12/13/24 10:32 Freq: Status: Active Protocol: Document 12/14/24 15:03 [facility] (Rec: 12/14/24 16:57 [facility] [id number]) Patient Questionnaires Oswestry Low Back Index Oswestry Score 48% OP-PT Pain Assessment Location LBP Pain Location Details LS and SI and lat L hip Pain Aggravating Factors Activity,Standing,Walking Pain Alleviating Factors Heat,Sitting,Massage Other Pain Alleviating Factors massager PT-OP-E Functional Tests Start: 12/15/24 12:03 Freq: Status: Active Protocol: Document 12/14/24 15:03 [facility] (Rec: 12/15/24 12:04 [facility] [id number]) Functional Tests 2 Minute Walk Test Distance 222ft Device Used 4WW Comments max distance SOB 30 Second Sit to Stand Test Score 6x Comments abdi chair Five Times Sit to Stand Test Score 22 sec Comments abdi chair PT-OP-G Mobility & Gait Start: 12/13/24 10:32 Freq: Status: Active Protocol: Document 12/14/24 15:03 [facility] (Rec: 12/14/24 16:57 [facility] [id number]) OP Gait Assessment Comments Gait Comments fwd flexed w/4WW dec foot clearance PT-OP-J Posture/Palpation/Skin Start: 12/13/24 10:32 Freq: Status: Active Protocol: Document 12/14/24 15:03 [facility] (Rec: 12/14/24 16:57 [facility] [id number]) Posture Evaluation Comments Posture Comments fwd flexed w/inc kyphosis and fwd head, ant pelvic tilt, slightly bent knees PT-OP-M Strength Start: 12/13/24 10:32 Freq: Status: Active Protocol: Document 12/14/24 15:03 [facility] (Rec: 12/14/24 16:57 [facility] [id number]) Hip Strength Hip Manual Muscle Testing Right Flexion (L2) 3 Fair External Rotation 3+ Fair+ Internal Rotation 4- Good- Left Flexion (L2) 3 Fair External Rotation 4- Good- Internal Rotation 4- Good- Knee Strength Knee Manual Muscle Testing Right Flexion (S2) 4 Good Extension (L3) 4- Good- Left Flexion (S2) 4+ Good+ Extension (L3) 4- Good- Ankle/Foot Strength Ankle and Foot Manual Muscle Testing Right Dorsiflexion (L4) 4 Good Plantarflexion (S1) 4 Good Left Dorsiflexion (L4) 4 Good Plantarflexion (S1) 4 Good Comments PF tested seated PT-OP-Q Treatments Start: 12/13/24 10:32 Freq: Status: Active Protocol: Document 12/14/24 15:03 [facility] (Rec: 12/14/24 16:57 [facility] [id number]) Therapeutic Exercises Sitting Exercises hip abd Side bilateral Equipment Used Lvl 3 Reps/Minutes 1 min hold, then 10 reps march Side bilateral Equipment Used Lvl 3 Reps/Minutes 10 ea Comments cues core stretch Sitting Exercise Name HS Side bilateral Reps/Minutes 60 sec Standing Exercises sit to stand Side bilateral Reps/Minutes 6 Comments no hands Self-Care/Home Management Treatment Education Other Education 12 min: edu on getting in the water for exercise. Encouraged to try and use walker on pool deck. Edu on how it helps take weight off the back and would be a great way to strengthen. discussed tens unit option as she noted improvement w/estim in the past PT-OP-T Assessment and Plan Start: 12/13/24 10:32 Freq: Status: Active Protocol: Document 12/14/24 15:03 [facility] (Rec: 12/14/24 16:57 [facility] [id number]) Physical Therapy Assessment Rehab Potential Rehabilitation Potential Good Evaluation Complexity Number of Personal Factors/Comorbidities 3 or More Number of Body Systems Impaired 4 or More Clinical Presentation at Evaluation Evolving Impairments Impairments Activity Tolerance,Balance, Functional Activities, Functional Mobility,Gait,Pain, Posture,ROM,Soft Tissue Mobility,Strength,Transfers Goals ELENA Impairment 48% Short Term Goal (STG) Pt will improve ELENA score to no greater than 40% to show improved functional ability. STG Duration 01/28 Corporate Giving Manager Goal (LTG) Pt will improve ELENA score to no greater than 30% to show improved functional ability. LTG Duration 03/10 sit to stand Impairment 6 in 30 sec Short Term Goal (STG) Pt will be able to do at least 8 sit to stands in 30 sec to show improve strength and dec risk for falls. STG Duration 01/28 Corporate Giving Manager Goal (LTG) Pt will be able to do at least 10 sit to stands in 30 sec based on age related norms to show improve strength and dec risk for falls. LTG Duration 03/08 2 min walk Short Term Goal (STG) Pt will do at least 350 ft in 2 min w/4WW STG Duration 01/28 Corporate Giving Manager Goal (LTG) Pt will be able to tolerate full 6 min walk test LTG Duration 03/08 Assessment Summary Assessment Pt presents w/LBP and L hip pain along w/neuropathy BLEs and overall dec activity tolerance d/t pain worsening over the past 10 years. She gets SOB w/small bouts of activity and is limited in standing to about 1 min d/t pain in her back, knees, L hip or BLEs. She is weak overall and does have significant gait impairments w/fwd flex trunk along w/dec LE clearance putting pt more risk for falls . She would benefit from skilled PT to work on LE/core strength, dec pain, improving posture and improving mobility . Physical Therapy Plan Frequency and Duration Frequency of Treatment 2x/Week Duration of treatment (weeks) 12 Plan of Care Start Date 12/14/24 Plan of Care End Date 03/08/25 Therapeutic Interventions Therapeutic Interventions Balance Training,Home Exercise Program,Joint Mobilizations, Manual Therapy,Neuromuscular Re-education,Patient/Caregiver Education,Self-Care/Home Management,Soft Tissue Mobilization,Therapeutic Activities,Therapeutic Exercises Modalities Cold Pack/Ice Massage,Electric Stimulation,Hot Packs, Traction- Mechanical, Ultrasound Next Visit Focus/Plan Next Note Type Treatment Note Next Visit Plan review exercises, try some standing exercises, DF strength, PF strength, core exercises, manual to LB ,estim w/heat
--- NOTE | 2024-12-20 14:34 | PT.OTN ---
Current Diagnoses Morbid (severe) obesity due to excess calories (12/20/24) Other spondylosis with radiculopathy, lumbosacral region (12/20/24) Spondylosis without myelopathy or radiculopathy, lumbar region (12/20/24) Wedge compression fracture of first lumbar vertebra, initial encounter for closed fracture (12/20/24) Wedge compression fracture of third lumbar vertebra, initial encounter for closed fracture (12/20/24) Physical Therapy Treatment Note PT-OP-A Visit Information Start: 12/13/24 10:32 Freq: Status: Active Protocol: Document 12/20/24 13:51 [facility] (Rec: 12/20/24 14:32 [facility] [id number]) Out-Patient Physical Therapy Visit Information Visit Information Visit Type Treatment Note Visit Start Time 13:48 Visit Stop Time 14:28 Visit Number 2 (10/11) Number of AUDIO VIDEO TECHNICIAN Visits 0 PT-OP-B Current Condition Start: 12/13/24 10:32 Freq: Status: Active Protocol: Document 12/14/24 15:03 [facility] (Rec: 12/14/24 16:57 [facility] [id number]) Current Condition History of Current Condition Onset Date 10-12 years Current Complaints LBP, neuropathy History of Current Condition Pt reports at the moment, she can sit w/o pain so can sew. Cannot be on her feet for longer than about 1 min d/t pain in back. has neuropathy that gets bad enough that it is painful so she can't walk. Knees can give her issues. Pt is working w/Dr. Fofana and has not had success since injections and seems like the last one had inc pain in hip and feet. Sometimes feels like almost crumbles d/t her knees . Takes Gabapentin and doesn't feel like it does a lot except help her sleep a little better. DId PT last time with bike, Estim w/heat, massage and some stretches and exercises and it helped. Pt reports she was playing golf, go for walks, do water aerobics then got to a point where she couldn't make it to the 9th hole so had ot give it up. THat was 10 to 12 years ago. Denies injury. Typically, wakes at 4 and sits in recliner and sometimes sleeps again. walks w/cane in the house now and when leaves the house uses a 4WW Treatment Goals Patient/Caregiver Goals Get exercises to work on, be able to walk (even short walks w/walker) PT-OP-C Subjective Start: 12/13/24 10:32 Freq: Status: Active Protocol: Document 12/20/24 13:51 [facility] (Rec: 12/20/24 14:32 [facility] [id number]) OP-PT Subjective Patient Comments Patient Comments Pt reports feeling better after last session. Hip hasn't been hurting as much. PT-OP-E Functional Tests Start: 12/15/24 12:03 Freq: Status: Active Protocol: Document 12/14/24 15:03 [facility] (Rec: 12/15/24 12:04 [facility] [id number]) Functional Tests 2 Minute Walk Test Distance 222ft Device Used 4WW Comments max distance SOB 30 Second Sit to Stand Test Score 6x Comments abdi chair Five Times Sit to Stand Test Score 22 sec Comments abdi chair PT-OP-G Mobility & Gait Start: 12/13/24 10:32 Freq: Status: Active Protocol: Document 12/14/24 15:03 [facility] (Rec: 12/14/24 16:57 [facility] [id number]) OP Gait Assessment Comments Gait Comments fwd flexed w/4WW dec foot clearance PT-OP-J Posture/Palpation/Skin Start: 12/13/24 10:32 Freq: Status: Active Protocol: Document 12/14/24 15:03 [facility] (Rec: 12/14/24 16:57 [facility] [id number]) Posture Evaluation Comments Posture Comments fwd flexed w/inc kyphosis and fwd head, ant pelvic tilt, slightly bent knees PT-OP-M Strength Start: 12/13/24 10:32 Freq: Status: Active Protocol: Document 12/14/24 15:03 [facility] (Rec: 12/14/24 16:57 [facility] [id number]) Hip Strength Hip Manual Muscle Testing Right Flexion (L2) 3 Fair External Rotation 3+ Fair+ Internal Rotation 4- Good- Left Flexion (L2) 3 Fair External Rotation 4- Good- Internal Rotation 4- Good- Knee Strength Knee Manual Muscle Testing Right Flexion (S2) 4 Good Extension (L3) 4- Good- Left Flexion (S2) 4+ Good+ Extension (L3) 4- Good- Ankle/Foot Strength Ankle and Foot Manual Muscle Testing Right Dorsiflexion (L4) 4 Good Plantarflexion (S1) 4 Good Left Dorsiflexion (L4) 4 Good Plantarflexion (S1) 4 Good Comments PF tested seated PT-OP-Q Treatments Start: 12/13/24 10:32 Freq: Status: Active Protocol: Document 12/20/24 13:51 [facility] (Rec: 12/20/24 14:32 [facility] [id number]) Therapeutic Exercises Sitting Exercises knee flex Side bilateral Equipment Used L1 Reps/Minutes 10 knee ext Side bilateral Equipment Used L1 Reps/Minutes 10 ea DF Side bilateral Equipment Used L1 Reps/Minutes 15 ea hip add Side bilateral Equipment Used ball Reps/Minutes 5 sec x15 hip abd Side bilateral Equipment Used Lvl 3 Reps/Minutes 1 min hold, then 10 reps march Sitting Exercise Name lean back to dec pain in R ant hip Side bilateral Equipment Used Lvl 3 Reps/Minutes 15 ea Comments cues core stretch Sitting Exercise Name HS Side bilateral Reps/Minutes 60 sec Standing Exercises DF/PF Standing Exercise Name DL w/rail and cues for posture Side bilateral Reps/Minutes 15 ea hip abd Side bilateral Reps/Minutes 10 Comments rail w/posture cues sit to stand Side bilateral Reps/Minutes 10 Comments cues slower decent Manual Therapy Treatment Consent Patient gave verbal consent for manual Yes treatment Soft Tissue Mobilization LEs Body Location B HS and quads Mobilization Type Myofascial Release Intensity/Depth Superficial Neuro Re-Education Treatment Balance Activities hurdles Comments 1. fwd recip w/rail x4 2. sidestep x2 B PT-OP-T Assessment and Plan Start: 12/13/24 10:32 Freq: Status: Active Protocol: Document 12/20/24 13:51 [facility] (Rec: 12/20/24 14:32 [facility] [id number]) Physical Therapy Assessment Goals ELENA Impairment 48% Short Term Goal (STG) Pt will improve ELENA score to no greater than 40% to show improved functional ability. STG Duration 5/30 Halfway Goal (LTG) Pt will improve ELENA score to no greater than 30% to show improved functional ability. LTG Duration 7/10 sit to stand Impairment 6 in 30 sec Short Term Goal (STG) Pt will be able to do at least 8 sit to stands in 30 sec to show improve strength and dec risk for falls. STG Duration 5/30 Tray Drier Goal (LTG) Pt will be able to do at least 10 sit to stands in 30 sec based on age related norms to show improve strength and dec risk for falls. LTG Duration 7 2 min walk Short Term Goal (STG) Pt will do at least 350 ft in 2 min w/4WW STG Duration 01/28 Halfway Goal (LTG) Pt will be able to tolerate full 6 min walk test LTG Duration 03/08 Assessment Summary Assessment Pt did well with exercises but used seated activities for in between standing exercises to inc tolerance. She did note some knee discomfort with activity. Physical Therapy Plan Next Visit Focus/Plan Next Note Type Treatment Note Next Visit Plan standing exercises to inc tolerance to standing, DF strength, PF strength, core exercises, manual to LB ,estim w/heat, balance
--- NOTE | 2024-12-22 12:28 | PT.OTN ---
Current Diagnoses Morbid (severe) obesity due to excess calories (12/22/24) Other spondylosis with radiculopathy, lumbosacral region (12/22/24) Spondylosis without myelopathy or radiculopathy, lumbar region (12/22/24) Wedge compression fracture of first lumbar vertebra, initial encounter for closed fracture (12/22/24) Wedge compression fracture of third lumbar vertebra, initial encounter for closed fracture (12/22/24) Physical Therapy Treatment Note PT-OP-A Visit Information Start: 12/13/24 10:32 Freq: Status: Active Protocol: Document 12/22/24 10:48 [facility] (Rec: 12/22/24 12:27 [facility] Laptop) Out-Patient Physical Therapy Visit Information Visit Information Visit Type Treatment Note Visit Start Time 10:48 Visit Stop Time 11:43 Visit Number 3 Number of SWIMMING POOL SERVICE TECHNICIAN Visits 1 PT-OP-B Current Condition Start: 12/13/24 10:32 Freq: Status: Active Protocol: Document 12/14/24 15:03 [facility] (Rec: 12/14/24 16:57 [facility] [id number]) Current Condition History of Current Condition Onset Date 10-12 years Current Complaints LBP, neuropathy History of Current Condition Pt reports at the moment, she can sit w/o pain so can sew. Cannot be on her feet for longer than about 1 min d/t pain in back. has neuropathy that gets bad enough that it is painful so she can't walk. Knees can give her issues. Pt is working w/Dr. Fofana and has not had success since injections and seems like the last one had inc pain in hip and feet. Sometimes feels like almost crumbles d/t her knees . Takes Gabapentin and doesn't feel like it does a lot except help her sleep a little better. DId PT last time with bike, Estim w/heat, massage and some stretches and exercises and it helped. Pt reports she was playing golf, go for walks, do water aerobics then got to a point where she couldn't make it to the 9th hole so had ot give it up. THat was 10 to 12 years ago. Denies injury. Typically, wakes at 4 and sits in recliner and sometimes sleeps again. walks w/cane in the house now and when leaves the house uses a 4WW Treatment Goals Patient/Caregiver Goals Get exercises to work on, be able to walk (even short walks w/walker) PT-OP-C Subjective Start: 12/13/24 10:32 Freq: Status: Active Protocol: Document 12/22/24 10:48 [facility] (Rec: 12/22/24 12:27 [facility] Laptop) OP-PT Subjective Patient Comments Patient Comments Patient reports after last session had increased back pain and ankle pain, comments the pain is still there today, but is less today. Louse rated pain 3-4/10 back, in ankles 3-4/10 PT-OP-E Functional Tests Start: 12/15/24 12:03 Freq: Status: Active Protocol: Document 12/14/24 15:03 [facility] (Rec: 12/15/24 12:04 [facility] [id number]) Functional Tests 2 Minute Walk Test Distance 222ft Device Used 4WW Comments max distance SOB 30 Second Sit to Stand Test Score 6x Comments abdi chair Five Times Sit to Stand Test Score 22 sec Comments abdi chair PT-OP-G Mobility & Gait Start: 12/13/24 10:32 Freq: Status: Active Protocol: Document 12/14/24 15:03 [facility] (Rec: 12/14/24 16:57 [facility] [id number]) OP Gait Assessment Comments Gait Comments fwd flexed w/4WW dec foot clearance PT-OP-J Posture/Palpation/Skin Start: 12/13/24 10:32 Freq: Status: Active Protocol: Document 12/14/24 15:03 [facility] (Rec: 12/14/24 16:57 [facility] [id number]) Posture Evaluation Comments Posture Comments fwd flexed w/inc kyphosis and fwd head, ant pelvic tilt, slightly bent knees PT-OP-M Strength Start: 12/13/24 10:32 Freq: Status: Active Protocol: Document 12/14/24 15:03 [facility] (Rec: 12/14/24 16:57 [facility] [id number]) Hip Strength Hip Manual Muscle Testing Right Flexion (L2) 3 Fair External Rotation 3+ Fair+ Internal Rotation 4- Good- Left Flexion (L2) 3 Fair External Rotation 4- Good- Internal Rotation 4- Good- Knee Strength Knee Manual Muscle Testing Right Flexion (S2) 4 Good Extension (L3) 4- Good- Left Flexion (S2) 4+ Good+ Extension (L3) 4- Good- Ankle/Foot Strength Ankle and Foot Manual Muscle Testing Right Dorsiflexion (L4) 4 Good Plantarflexion (S1) 4 Good Left Dorsiflexion (L4) 4 Good Plantarflexion (S1) 4 Good Comments PF tested seated PT-OP-Q Treatments Start: 12/13/24 10:32 Freq: Status: Active Protocol: Document 12/22/24 10:48 [facility] (Rec: 12/22/24 12:27 [facility] Laptop) Therapeutic Exercises Sitting Exercises hip abd Sitting Exercise Name HEP Side bilateral Equipment Used Lvl 3 Reps/Minutes 1 min holdHEP, then 10 reps Comments Verbal cues Standing Exercises calf stretch Standing Exercise Name on BERNRADO gastrc and soleus Reps/Minutes 60 sec X 2 and step throughs with UE support X 10 Comments verbal cues monitored for pain DF/PF Standing Exercise Name DL w/rail and cues for posture Side bilateral Reps/Minutes 15 ea Comments Verbal cues to lower heels slowly for heel raise Manual Therapy Treatment Consent Patient gave verbal consent for manual Yes treatment Soft Tissue Mobilization Lumbar sacral area Body Location paraspinals, intervert tissue, SI area Mobilization Type Cross-Friction,Sustained Pressure Intensity/Depth Moderate Body Position Sidelying Neuro Re-Education Treatment Balance Activities SLS Details without UE use with finger tip support CGA Reps/Duration X1-3 X 3 PT-OP-R Modalities Start: 12/13/24 10:32 Freq: Status: Active Protocol: Document 12/22/24 10:48 [facility] (Rec: 12/22/24 12:27 [facility] Laptop) Electric Stimulation Electric Stimulation Interferential Current (IFC) Body Location B paraspinals Intensity 16 Patient Position Sidelying Combined With Heat/Cold Hot Pack Comments Interferential target X 15 min High PT-OP-T Assessment and Plan Start: 12/13/24 10:32 Freq: Status: Active Protocol: Document 12/22/24 10:48 [facility] (Rec: 12/22/24 12:27 [facility] Laptop) Physical Therapy Assessment Goals ELENA Impairment 48% Short Term Goal (STG) Pt will improve ELENA score to no greater than 40% to show improved functional ability. STG Duration 5/30 Receiver Goal (LTG) Pt will improve ELENA score to no greater than 30% to show improved functional ability. LTG Duration 7/10 sit to stand Impairment 6 in 30 sec Short Term Goal (STG) Pt will be able to do at least 8 sit to stands in 30 sec to show improve strength and dec risk for falls. STG Duration 01/28 Receiver Goal (LTG) Pt will be able to do at least 10 sit to stands in 30 sec based on age related norms to show improve strength and dec risk for falls. LTG Duration 7/8 2 min walk Short Term Goal (STG) Pt will do at least 350 ft in 2 min w/4WW STG Duration 01/28 Receiver Goal (LTG) Pt will be able to tolerate full 6 min walk test LTG Duration 8 Assessment Summary Assessment Patient reports feeling good post exercise and manual. Fatigues rapidly with standing ex, but recovers with a brief seated rest. Physical Therapy Plan Frequency and Duration Frequency of Treatment 2x/Week Duration of treatment (weeks) 12 Plan of Care Start Date 12/14/24 Plan of Care End Date 03/08/25 Next Visit Focus/Plan Next Note Type Treatment Note Next Visit Plan standing exercises to inc tolerance to standing, DF strength, PF strength, core exercises, manual to LB ,estim w/heat, balance
--- NOTE | 2024-12-28 12:35 | PT.OTN ---
Current Diagnoses Morbid (severe) obesity due to excess calories (12/28/24) Other spondylosis with radiculopathy, lumbosacral region (12/28/24) Spondylosis without myelopathy or radiculopathy, lumbar region (12/28/24) Wedge compression fracture of first lumbar vertebra, initial encounter for closed fracture (12/28/24) Wedge compression fracture of third lumbar vertebra, initial encounter for closed fracture (12/28/24) Physical Therapy Treatment Note PT-OP-A Visit Information Start: 12/13/24 10:32 Freq: Status: Active Protocol: Document 12/28/24 10:44 [facility] (Rec: 12/28/24 12:34 [facility] Laptop) Out-Patient Physical Therapy Visit Information Visit Information Visit Type Treatment Note Visit Start Time 10:48 Visit Stop Time 11:43 Visit Number 4 Number of ELECTRIC NEEDLE SPECIALIST Visits 1 PT-OP-B Current Condition Start: 12/13/24 10:32 Freq: Status: Active Protocol: Document 12/14/24 15:03 [facility] (Rec: 12/14/24 16:57 [facility] [id number]) Current Condition History of Current Condition Onset Date 10-12 years Current Complaints LBP, neuropathy History of Current Condition Pt reports at the moment, she can sit w/o pain so can sew. Cannot be on her feet for longer than about 1 min d/t pain in back. has neuropathy that gets bad enough that it is painful so she can't walk. Knees can give her issues. Pt is working w/Dr. Fofana and has not had success since injections and seems like the last one had inc pain in hip and feet. Sometimes feels like almost crumbles d/t her knees . Takes Gabapentin and doesn't feel like it does a lot except help her sleep a little better. DId PT last time with bike, Estim w/heat, massage and some stretches and exercises and it helped. Pt reports she was playing golf, go for walks, do water aerobics then got to a point where she couldn't make it to the 9th hole so had ot give it up. THat was 10 to 12 years ago. Denies injury. Typically, wakes at 4 and sits in recliner and sometimes sleeps again. walks w/cane in the house now and when leaves the house uses a 4WW Treatment Goals Patient/Caregiver Goals Get exercises to work on, be able to walk (even short walks w/walker) PT-OP-C Subjective Start: 12/13/24 10:32 Freq: Status: Active Protocol: Document 12/28/24 10:44 [facility] (Rec: 12/28/24 12:34 AB Laptop) OP-PT Subjective Patient Comments Patient Comments Aline reports her back is fine today, ankle on the right foot was bad last night, had to take Alleve to sleep, but they are better this morning. Aline rated back pain 3/10 start of session, ankles 3/10 seated at rest. PT-OP-E Functional Tests Start: 12/15/24 12:03 Freq: Status: Active Protocol: Document 12/14/24 15:03 [facility] (Rec: 12/15/24 12:04 [facility] [id number]) Functional Tests 2 Minute Walk Test Distance 222ft Device Used 4WW Comments max distance SOB 30 Second Sit to Stand Test Score 6x Comments abdi chair Five Times Sit to Stand Test Score 22 sec Comments abdi chair PT-OP-G Mobility & Gait Start: 12/13/24 10:32 Freq: Status: Active Protocol: Document 12/14/24 15:03 [facility] (Rec: 12/14/24 16:57 [facility] [id number]) OP Gait Assessment Comments Gait Comments fwd flexed w/4WW dec foot clearance PT-OP-J Posture/Palpation/Skin Start: 12/13/24 10:32 Freq: Status: Active Protocol: Document 12/14/24 15:03 [facility] (Rec: 12/14/24 16:57 [facility] [id number]) Posture Evaluation Comments Posture Comments fwd flexed w/inc kyphosis and fwd head, ant pelvic tilt, slightly bent knees PT-OP-M Strength Start: 12/13/24 10:32 Freq: Status: Active Protocol: Document 12/14/24 15:03 [facility] (Rec: 12/14/24 16:57 [facility] [id number]) Hip Strength Hip Manual Muscle Testing Right Flexion (L2) 3 Fair External Rotation 3+ Fair+ Internal Rotation 4- Good- Left Flexion (L2) 3 Fair External Rotation 4- Good- Internal Rotation 4- Good- Knee Strength Knee Manual Muscle Testing Right Flexion (S2) 4 Good Extension (L3) 4- Good- Left Flexion (S2) 4+ Good+ Extension (L3) 4- Good- Ankle/Foot Strength Ankle and Foot Manual Muscle Testing Right Dorsiflexion (L4) 4 Good Plantarflexion (S1) 4 Good Left Dorsiflexion (L4) 4 Good Plantarflexion (S1) 4 Good Comments PF tested seated PT-OP-Q Treatments Start: 12/13/24 10:32 Freq: Status: Active Protocol: Document 12/28/24 10:44 [facility] (Rec: 12/28/24 12:34 AB Laptop) Therapeutic Exercises Supine Exercises Modified/Modified Mario stretch Supine Exercise Name one LE on bolster one on mat with ankle pumps Reps/Minutes 60 sec each LE Comments verbal cues deep neck flexor chin tuck with head lift Reps/Minutes 7 sec X 5 Comments verbal cues Sitting Exercises short sit Side bilateral Reps/Minutes 7 sec X 5 Comments verbal cues core warm up Sitting Exercise Name 1. shoulder flex end rom X 5 2 . trunk rot seated end ROM X 5 Reps/Minutes 5X 4 Comments verbal cues Standing Exercises counter plank bird dog Side bilateral Reps/Minutes 7 sec X 5 Comments verbal, visual and tactile cues Manual Therapy Treatment Consent Patient gave verbal consent for manual Yes treatment Soft Tissue Mobilization Lumbar sacral area Body Location paraspinals, intervert tissue, SI area Mobilization Type Cross-Friction,Sustained Pressure Intensity/Depth Moderate Body Position Sidelying LEs Body Location illiopsoas Mobilization Type Cross-Friction,Rolling Intensity/Depth Moderate Body Position Hooklying PT-OP-R Modalities Start: 12/13/24 10:32 Freq: Status: Active Protocol: Document 12/28/24 10:44 [facility] (Rec: 12/28/24 12:34 AB Laptop) Electric Stimulation Electric Stimulation Interferential Current (IFC) Body Location B paraspinals Intensity 16 Patient Position Sitting Combined With Heat/Cold Hot Pack Comments Interferential target X 15 min High PT-OP-T Assessment and Plan Start: 12/13/24 10:32 Freq: Status: Active Protocol: Document 12/28/24 10:44 [facility] (Rec: 12/28/24 12:34 AB Laptop) Physical Therapy Assessment Goals ELENA Impairment 48% Short Term Goal (STG) Pt will improve ELENA score to no greater than 40% to show improved functional ability. STG Duration 01/28 Public Relations Player Goal (LTG) Pt will improve ELENA score to no greater than 30% to show improved functional ability. LTG Duration 7/10 sit to stand Impairment 6 in 30 sec Short Term Goal (STG) Pt will be able to do at least 8 sit to stands in 30 sec to show improve strength and dec risk for falls. STG Duration /30 Nursing Home Goal (LTG) Pt will be able to do at least 10 sit to stands in 30 sec based on age related norms to show improve strength and dec risk for falls. LTG Duration 7/8 2 min walk Short Term Goal (STG) Pt will do at least 350 ft in 2 min w/4WW STG Duration 01/28 Public Relations Player Goal (LTG) Pt will be able to tolerate full 6 min walk test LTG Duration 8 Assessment Summary Assessment Patient reports feeling good, post set up of IFC. End of session reports having no pain , comments it will be back in 30 minutes. Physical Therapy Plan Frequency and Duration Frequency of Treatment 2x/Week Duration of treatment (weeks) 12 Plan of Care Start Date 12/14/24 Plan of Care End Date 03/08/25 Next Visit Focus/Plan Next Note Type Treatment Note Next Visit Plan standing exercises to inc tolerance to standing, DF strength, PF strength, core exercises, manual to LB ,estim w/heat, balance Review core, possibly add to HEP
--- NOTE | 2024-12-30 12:40 | PT.OTN ---
Current Diagnoses Morbid (severe) obesity due to excess calories (12/30/24) Other spondylosis with radiculopathy, lumbosacral region (12/30/24) Spondylosis without myelopathy or radiculopathy, lumbar region (12/30/24) Wedge compression fracture of first lumbar vertebra, initial encounter for closed fracture (12/30/24) Wedge compression fracture of third lumbar vertebra, initial encounter for closed fracture (12/30/24) Physical Therapy Treatment Note PT-OP-A Visit Information Start: 12/13/24 10:32 Freq: Status: Active Protocol: Document 12/30/24 09:32 AB (Rec: 12/30/24 12:31 AB Laptop) Out-Patient Physical Therapy Visit Information Visit Information Visit Type Treatment Note Visit Start Time 10:47 Visit Stop Time 11:30 Visit Number 5 Number of RESISTOR INSPECTOR Visits 3 PT-OP-B Current Condition Start: 12/13/24 10:32 Freq: Status: Active Protocol: Document 12/14/24 15:03 [facility] (Rec: 12/14/24 16:57 [facility] [id number]) Current Condition History of Current Condition Onset Date 10-12 years Current Complaints LBP, neuropathy History of Current Condition Pt reports at the moment, she can sit w/o pain so can sew. Cannot be on her feet for longer than about 1 min d/t pain in back. has neuropathy that gets bad enough that it is painful so she can't walk. Knees can give her issues. Pt is working w/Dr. Fofana and has not had success since injections and seems like the last one had inc pain in hip and feet. Sometimes feels like almost crumbles d/t her knees . Takes Gabapentin and doesn't feel like it does a lot except help her sleep a little better. DId PT last time with bike, Estim w/heat, massage and some stretches and exercises and it helped. Pt reports she was playing golf, go for walks, do water aerobics then got to a point where she couldn't make it to the 9th hole so had ot give it up. THat was 10 to 12 years ago. Denies injury. Typically, wakes at 4 and sits in recliner and sometimes sleeps again. walks w/cane in the house now and when leaves the house uses a 4WW Treatment Goals Patient/Caregiver Goals Get exercises to work on, be able to walk (even short walks w/walker) PT-OP-C Subjective Start: 12/13/24 10:32 Freq: Status: Active Protocol: Document 12/30/24 09:32 AB (Rec: 12/30/24 12:31 AB Laptop) OP-PT Subjective Patient Comments Patient Comments Aline reports pain is 1/10 back pain ambulating into session with 4 wheel walker, and was able to plant brewster on [employer] yesterday, and spouse has noticed she is doing more. Pt pushes walker aside and steps to chair without walker. SLS one sec each LE without UE use start of session PT-OP-E Functional Tests Start: 12/15/24 12:03 Freq: Status: Active Protocol: Document 12/14/24 15:03 [facility] (Rec: 12/15/24 12:04 [facility] [id number]) Functional Tests 2 Minute Walk Test Distance 222ft Device Used 4WW Comments max distance SOB 30 Second Sit to Stand Test Score 6x Comments abdi chair Five Times Sit to Stand Test Score 22 sec Comments abdi chair PT-OP-G Mobility & Gait Start: 12/13/24 10:32 Freq: Status: Active Protocol: Document 12/14/24 15:03 [facility] (Rec: 12/14/24 16:57 [facility] [id number]) OP Gait Assessment Comments Gait Comments fwd flexed w/4WW dec foot clearance PT-OP-J Posture/Palpation/Skin Start: 12/13/24 10:32 Freq: Status: Active Protocol: Document 12/14/24 15:03 [facility] (Rec: 12/14/24 16:57 [facility] [id number]) Posture Evaluation Comments Posture Comments fwd flexed w/inc kyphosis and fwd head, ant pelvic tilt, slightly bent knees PT-OP-M Strength Start: 12/13/24 10:32 Freq: Status: Active Protocol: Document 12/14/24 15:03 [facility] (Rec: 12/14/24 16:57 [facility] [id number]) Hip Strength Hip Manual Muscle Testing Right Flexion (L2) 3 Fair External Rotation 3+ Fair+ Internal Rotation 4- Good- Left Flexion (L2) 3 Fair External Rotation 4- Good- Internal Rotation 4- Good- Knee Strength Knee Manual Muscle Testing Right Flexion (S2) 4 Good Extension (L3) 4- Good- Left Flexion (S2) 4+ Good+ Extension (L3) 4- Good- Ankle/Foot Strength Ankle and Foot Manual Muscle Testing Right Dorsiflexion (L4) 4 Good Plantarflexion (S1) 4 Good Left Dorsiflexion (L4) 4 Good Plantarflexion (S1) 4 Good Comments PF tested seated PT-OP-Q Treatments Start: 12/13/24 10:32 Freq: Status: Active Protocol: Document 12/30/24 09:32 AB (Rec: 12/30/24 12:31 AB Laptop) Therapeutic Exercises Sitting Exercises AROM DF Reps/Minutes X 15 Comments post calf stretches and MWM pursed lip breathing in pos for breathlesness Comments assist for position UE's on pillows on walker arms VC breathing core warm up Sitting Exercise Name 1. shoulder flex end rom X 5 2 . trunk rot seated end ROM X 5 Reps/Minutes 5X 4 Comments verbal cues hip abd Sitting Exercise Name HEP Side bilateral Equipment Used Lvl 3 Reps/Minutes 1 min holdHEP, then 15 reps Comments Verbal cues Standing Exercises Heel raise Side bilateral Reps/Minutes X 12 Comments verbal cues Pallof press Resistance level 2 band Reps/Minutes X 10 standing X 10 seated Comments verbal cues side stepping with band Side bilateral Equipment Used LEvel 3 band above knees Reps/Minutes 10 feet L and right X2 Comments verbal and visual cues to avoid toeing out counter plank bird dog Standing Exercise Name parallel bars Side bilateral Reps/Minutes X8 Comments VC dec height of LE ext calf stretch Standing Exercise Name on BERNARDO gastrc and soleus Reps/Minutes 60 sec X2 gastroc X 1 limited by pain X 1 40 sec good rosa Comments paint TC area improved with gastroc and soleusstretch post manaul Manual Therapy Treatment Manual Techniques B ankle TC mob Type AP seated and standing X 10 each Body Location tc Body Position II Reps/Duration X 10 each position each LE Comments Seated without active movement , standing holding // bars MWM TC mob PT-OP-R Modalities Start: 12/13/24 10:32 Freq: Status: Active Protocol: Document 12/28/24 10:44 AB (Rec: 12/28/24 12:34 AB Laptop) Electric Stimulation Electric Stimulation Interferential Current (IFC) Body Location B paraspinals Intensity 16 Patient Position Sitting Combined With Heat/Cold Hot Pack Comments Interferential target X 15 min High PT-OP-T Assessment and Plan Start: 12/13/24 10:32 Freq: Status: Active Protocol: Document 12/30/24 09:32 AB (Rec: 12/30/24 12:31 AB Laptop) Physical Therapy Assessment Goals ELENA Impairment 48% Short Term Goal (STG) Pt will improve ELENA score to no greater than 40% to show improved functional ability. STG Duration 30 Silk Screen Printer Helper Goal (LTG) Pt will improve ELENA score to no greater than 30% to show improved functional ability. LTG Duration 03/10 sit to stand Impairment 6 in 30 sec Short Term Goal (STG) Pt will be able to do at least 8 sit to stands in 30 sec to show improve strength and dec risk for falls. STG Duration 30 Skilled Nursing Goal (LTG) Pt will be able to do at least 10 sit to stands in 30 sec based on age related norms to show improve strength and dec risk for falls. LTG Duration 78 2 min walk Short Term Goal (STG) Pt will do at least 350 ft in 2 min w/4WW STG Duration 30 Silk Screen Printer Helper Goal (LTG) Pt will be able to tolerate full 6 min walk test LTG Duration 7/8 Assessment Summary Assessment End of session 3-12/09 back pain ambulating out of session . Patient motivated for exercises this session, declining IFC and manual start of and during session. Increased stiffness TC joint R >L limited calf stretches this session, but resolved with TC mobs. Physical Therapy Plan Frequency and Duration Frequency of Treatment 2x/Week Duration of treatment (weeks) 12 Plan of Care Start Date 12/14/24 Plan of Care End Date 03/08/25 Therapeutic Interventions Therapeutic Interventions Balance Training,Home Exercise Program,Joint Mobilizations, Manual Therapy,Neuromuscular Re-education,Patient/Caregiver Education,Self-Care/Home Management,Soft Tissue Mobilization,Therapeutic Activities,Therapeutic Exercises Modalities Cold Pack/Ice Massage,Electric Stimulation,Hot Packs, Traction- Mechanical, Ultrasound Next Visit Focus/Plan Next Note Type Treatment Note Next Visit Plan standing exercises to inc tolerance to standing, DF strength, PF strength, core exercises, manual to LB ,estim w/heat, balance Review core, possibly add to HEP
--- NOTE | 2024-12-30 12:40 | PT.OTN ---
Current Diagnoses Morbid (severe) obesity due to excess calories (12/30/24) Other spondylosis with radiculopathy, lumbosacral region (12/30/24) Spondylosis without myelopathy or radiculopathy, lumbar region (12/30/24) Wedge compression fracture of first lumbar vertebra, initial encounter for closed fracture (12/30/24) Wedge compression fracture of third lumbar vertebra, initial encounter for closed fracture (12/30/24) Physical Therapy Treatment Note PT-OP-A Visit Information Start: 12/13/24 10:32 Freq: Status: Active Protocol: Document 12/30/24 09:32 AB (Rec: 12/30/24 12:31 AB Laptop) Out-Patient Physical Therapy Visit Information Visit Information Visit Type Treatment Note Visit Start Time 10:47 Visit Stop Time 11:30 Visit Number 5 Number of TABLE GAMES FLOOR SUPERVISOR Visits 3 PT-OP-B Current Condition Start: 12/13/24 10:32 Freq: Status: Active Protocol: Document 12/14/24 15:03 [facility] (Rec: 12/14/24 16:57 [facility] [id number]) Current Condition History of Current Condition Onset Date 10-12 years Current Complaints LBP, neuropathy History of Current Condition Pt reports at the moment, she can sit w/o pain so can sew. Cannot be on her feet for longer than about 1 min d/t pain in back. has neuropathy that gets bad enough that it is painful so she can't walk. Knees can give her issues. Pt is working w/Dr. Fofana and has not had success since injections and seems like the last one had inc pain in hip and feet. Sometimes feels like almost crumbles d/t her knees . Takes Gabapentin and doesn't feel like it does a lot except help her sleep a little better. DId PT last time with bike, Estim w/heat, massage and some stretches and exercises and it helped. Pt reports she was playing golf, go for walks, do water aerobics then got to a point where she couldn't make it to the 9th hole so had ot give it up. THat was 10 to 12 years ago. Denies injury. Typically, wakes at 4 and sits in recliner and sometimes sleeps again. walks w/cane in the house now and when leaves the house uses a 4WW Treatment Goals Patient/Caregiver Goals Get exercises to work on, be able to walk (even short walks w/walker) PT-OP-C Subjective Start: 12/13/24 10:32 Freq: Status: Active Protocol: Document 12/30/24 09:32 AB (Rec: 12/30/24 12:31 AB Laptop) OP-PT Subjective Patient Comments Patient Comments Aline reports pain is 1/10 back pain ambulating into session with 4 wheel walker, and was able to plant [employer] on [employer] yesterday, and spouse has noticed she is doing more. Pt pushes walker aside and steps to chair without walker. SLS one sec each LE without UE use start of session PT-OP-E Functional Tests Start: 12/15/24 12:03 Freq: Status: Active Protocol: Document 12/14/24 15:03 [facility] (Rec: 12/15/24 12:04 [facility] [id number]) Functional Tests 2 Minute Walk Test Distance 222ft Device Used 4WW Comments max distance SOB 30 Second Sit to Stand Test Score 6x Comments abdi chair Five Times Sit to Stand Test Score 22 sec Comments abdi chair PT-OP-G Mobility & Gait Start: 12/13/24 10:32 Freq: Status: Active Protocol: Document 12/14/24 15:03 [facility] (Rec: 12/14/24 16:57 [facility] [id number]) OP Gait Assessment Comments Gait Comments fwd flexed w/4WW dec foot clearance PT-OP-J Posture/Palpation/Skin Start: 12/13/24 10:32 Freq: Status: Active Protocol: Document 12/14/24 15:03 [facility] (Rec: 12/14/24 16:57 [facility] [id number]) Posture Evaluation Comments Posture Comments fwd flexed w/inc kyphosis and fwd head, ant pelvic tilt, slightly bent knees PT-OP-M Strength Start: 12/13/24 10:32 Freq: Status: Active Protocol: Document 12/14/24 15:03 [facility] (Rec: 12/14/24 16:57 [facility] [id number]) Hip Strength Hip Manual Muscle Testing Right Flexion (L2) 3 Fair External Rotation 3+ Fair+ Internal Rotation 4- Good- Left Flexion (L2) 3 Fair External Rotation 4- Good- Internal Rotation 4- Good- Knee Strength Knee Manual Muscle Testing Right Flexion (S2) 4 Good Extension (L3) 4- Good- Left Flexion (S2) 4+ Good+ Extension (L3) 4- Good- Ankle/Foot Strength Ankle and Foot Manual Muscle Testing Right Dorsiflexion (L4) 4 Good Plantarflexion (S1) 4 Good Left Dorsiflexion (L4) 4 Good Plantarflexion (S1) 4 Good Comments PF tested seated PT-OP-Q Treatments Start: 12/13/24 10:32 Freq: Status: Active Protocol: Document 12/30/24 09:32 AB (Rec: 12/30/24 12:31 AB Laptop) Therapeutic Exercises Sitting Exercises AROM DF Reps/Minutes X 15 Comments post calf stretches and MWM pursed lip breathing in pos for breathlesness Comments assist for position UE's on pillows on walker arms VC breathing core warm up Sitting Exercise Name 1. shoulder flex end rom X 5 2 . trunk rot seated end ROM X 5 Reps/Minutes 5X 4 Comments verbal cues hip abd Sitting Exercise Name HEP Side bilateral Equipment Used Lvl 3 Reps/Minutes 1 min holdHEP, then 15 reps Comments Verbal cues Standing Exercises Heel raise Side bilateral Reps/Minutes X 12 Comments verbal cues Pallof press Resistance level 2 band Reps/Minutes X 10 standing X 10 seated Comments verbal cues side stepping with band Side bilateral Equipment Used LEvel 3 band above knees Reps/Minutes 10 feet L and right X2 Comments verbal and visual cues to avoid toeing out counter plank bird dog Standing Exercise Name parallel bars Side bilateral Reps/Minutes X8 Comments VC dec height of LE ext calf stretch Standing Exercise Name on BERNARDO gastrc and soleus Reps/Minutes 60 sec X2 gastroc X 1 limited by pain X 1 40 sec good rosa Comments paint TC area improved with gastroc and soleusstretch post manaul Manual Therapy Treatment Manual Techniques B ankle TC mob Type AP seated and standing X 10 each Body Location tc Body Position II Reps/Duration X 10 each position each LE Comments Seated without active movement , standing holding // bars MWM TC mob PT-OP-R Modalities Start: 12/13/24 10:32 Freq: Status: Active Protocol: Document 12/28/24 10:44 AB (Rec: 12/28/24 12:34 AB Laptop) Electric Stimulation Electric Stimulation Interferential Current (IFC) Body Location B paraspinals Intensity 16 Patient Position Sitting Combined With Heat/Cold Hot Pack Comments Interferential target X 15 min High PT-OP-T Assessment and Plan Start: 12/13/24 10:32 Freq: Status: Active Protocol: Document 12/30/24 09:32 AB (Rec: 12/30/24 12:31 AB Laptop) Physical Therapy Assessment Goals ELENA Impairment 48% Short Term Goal (STG) Pt will improve ELENA score to no greater than 40% to show improved functional ability. STG Duration 30 Extermination Inspector Goal (LTG) Pt will improve ELENA score to no greater than 30% to show improved functional ability. LTG Duration 03/10 sit to stand Impairment 6 in 30 sec Short Term Goal (STG) Pt will be able to do at least 8 sit to stands in 30 sec to show improve strength and dec risk for falls. STG Duration 30 Mcfp Goal (LTG) Pt will be able to do at least 10 sit to stands in 30 sec based on age related norms to show improve strength and dec risk for falls. LTG Duration 78 2 min walk Short Term Goal (STG) Pt will do at least 350 ft in 2 min w/4WW STG Duration 30 Extermination Inspector Goal (LTG) Pt will be able to tolerate full 6 min walk test LTG Duration 7/8 Assessment Summary Assessment End of session 3-12/09 back pain ambulating out of session . Patient motivated for exercises this session, declining IFC and manual start of and during session. Increased stiffness TC joint R >L limited calf stretches this session, but resolved with TC mobs. Physical Therapy Plan Frequency and Duration Frequency of Treatment 2x/Week Duration of treatment (weeks) 12 Plan of Care Start Date 12/14/24 Plan of Care End Date 03/08/25 Therapeutic Interventions Therapeutic Interventions Balance Training,Home Exercise Program,Joint Mobilizations, Manual Therapy,Neuromuscular Re-education,Patient/Caregiver Education,Self-Care/Home Management,Soft Tissue Mobilization,Therapeutic Activities,Therapeutic Exercises Modalities Cold Pack/Ice Massage,Electric Stimulation,Hot Packs, Traction- Mechanical, Ultrasound Next Visit Focus/Plan Next Note Type Treatment Note Next Visit Plan standing exercises to inc tolerance to standing, DF strength, PF strength, core exercises, manual to LB ,estim w/heat, balance Review core, possibly add to HEP
--- NOTE | 2025-01-05 10:45 | PT.OTN ---
Current Diagnoses Morbid (severe) obesity due to excess calories (01/05/25) Other spondylosis with radiculopathy, lumbosacral region (01/05/25) Spondylosis without myelopathy or radiculopathy, lumbar region (01/05/25) Wedge compression fracture of first lumbar vertebra, initial encounter for closed fracture (01/05/25) Wedge compression fracture of third lumbar vertebra, initial encounter for closed fracture (01/05/25) Physical Therapy Treatment Note PT-OP-A Visit Information Start: 12/13/24 10:32 Freq: Status: Active Protocol: Document 01/05/25 09:49 [facility] (Rec: 01/05/25 10:42 [facility] [id number]) Out-Patient Physical Therapy Visit Information Visit Information Visit Type Treatment Note Visit Start Time 09:51 Visit Stop Time 10:44 Visit Number 6 Number of IDENTIFICATION AND RECORDS COMMANDER Visits 0 PT-OP-B Current Condition Start: 12/13/24 10:32 Freq: Status: Active Protocol: Document 12/14/24 15:03 [facility] (Rec: 12/14/24 16:57 [facility] [id number]) Current Condition History of Current Condition Onset Date 10-12 years Current Complaints LBP, neuropathy History of Current Condition Pt reports at the moment, she can sit w/o pain so can sew. Cannot be on her feet for longer than about 1 min d/t pain in back. has neuropathy that gets bad enough that it is painful so she can't walk. Knees can give her issues. Pt is working w/Dr. Fofana and has not had success since injections and seems like the last one had inc pain in hip and feet. Sometimes feels like almost crumbles d/t her knees . Takes Gabapentin and doesn't feel like it does a lot except help her sleep a little better. DId PT last time with bike, Estim w/heat, massage and some stretches and exercises and it helped. Pt reports she was playing golf, go for walks, do water aerobics then got to a point where she couldn't make it to the 9th hole so had ot give it up. THat was 10 to 12 years ago. Denies injury. Typically, wakes at 4 and sits in recliner and sometimes sleeps again. walks w/cane in the house now and when leaves the house uses a 4WW Treatment Goals Patient/Caregiver Goals Get exercises to work on, be able to walk (even short walks w/walker) PT-OP-C Subjective Start: 12/13/24 10:32 Freq: Status: Active Protocol: Document 01/05/25 09:49 [facility] (Rec: 01/05/25 10:42 [facility] [id number]) OP-PT Subjective Patient Comments Patient Comments Had some pain in L ankle and hip the night of the visit and had pain the next morning. is seeing her getting around better. Patient Reported Progress Improving PT-OP-E Functional Tests Start: 12/15/24 12:03 Freq: Status: Active Protocol: Document 12/14/24 15:03 [facility] (Rec: 12/15/24 12:04 [facility] [id number]) Functional Tests 2 Minute Walk Test Distance 222ft Device Used 4WW Comments max distance SOB 30 Second Sit to Stand Test Score 6x Comments abdi chair Five Times Sit to Stand Test Score 22 sec Comments abdi chair PT-OP-G Mobility & Gait Start: 12/13/24 10:32 Freq: Status: Active Protocol: Document 12/14/24 15:03 [facility] (Rec: 12/14/24 16:57 [facility] [id number]) OP Gait Assessment Comments Gait Comments fwd flexed w/4WW dec foot clearance PT-OP-J Posture/Palpation/Skin Start: 12/13/24 10:32 Freq: Status: Active Protocol: Document 12/14/24 15:03 [facility] (Rec: 12/14/24 16:57 [facility] [id number]) Posture Evaluation Comments Posture Comments fwd flexed w/inc kyphosis and fwd head, ant pelvic tilt, slightly bent knees PT-OP-M Strength Start: 12/13/24 10:32 Freq: Status: Active Protocol: Document 12/14/24 15:03 [facility] (Rec: 12/14/24 16:57 [facility] [id number]) Hip Strength Hip Manual Muscle Testing Right Flexion (L2) 3 Fair External Rotation 3+ Fair+ Internal Rotation 4- Good- Left Flexion (L2) 3 Fair External Rotation 4- Good- Internal Rotation 4- Good- Knee Strength Knee Manual Muscle Testing Right Flexion (S2) 4 Good Extension (L3) 4- Good- Left Flexion (S2) 4+ Good+ Extension (L3) 4- Good- Ankle/Foot Strength Ankle and Foot Manual Muscle Testing Right Dorsiflexion (L4) 4 Good Plantarflexion (S1) 4 Good Left Dorsiflexion (L4) 4 Good Plantarflexion (S1) 4 Good Comments PF tested seated PT-OP-Q Treatments Start: 12/13/24 10:32 Freq: Status: Active Protocol: Document 01/05/25 09:49 [facility] (Rec: 01/05/25 10:42 [facility] [id number]) Therapeutic Exercises Sitting Exercises rotation Sitting Exercise Name trunk Side bilateral Equipment Used Lvl 1 (2 bands) Reps/Minutes 10 core warm up Sitting Exercise Name V sit back Reps/Minutes 15 Comments small range knee flex Side bilateral Equipment Used L2 Reps/Minutes 15 ea knee ext Side bilateral Equipment Used L2 Reps/Minutes 15 ea DF Side bilateral Equipment Used L2 Reps/Minutes 15 ea hip abd Sitting Exercise Name HEP Side bilateral Equipment Used Lvl 3 Reps/Minutes 1 min holdHEP, then 15 reps Comments Verbal cues Standing Exercises march Side bilateral Reps/Minutes 10 Comments cues core Manual Therapy Treatment Consent Patient gave verbal consent for manual Yes treatment Soft Tissue Mobilization Lumbar sacral area Body Location paraspinals, intervert tissue, SI area Mobilization Type Cross-Friction,Sustained Pressure Intensity/Depth Moderate Body Position Sidelying Neuro Re-Education Treatment Balance Activities foam Details head turns and EC trials Surface black foam Comments WBOS, NBOS and staggered stance B hurdles Details 1 rail Comments 1. fwd recip w/rail x4 2. sidestep x2 B PT-OP-R Modalities Start: 12/13/24 10:32 Freq: Status: Active Protocol: Document 01/05/25 09:49 [facility] (Rec: 01/05/25 10:42 [facility] [id number]) Electric Stimulation Electric Stimulation Interferential Current (IFC) Body Location B paraspinals Patient Position Sidelying Combined With Heat/Cold Hot Pack Comments Interferential target X 15 min PT-OP-T Assessment and Plan Start: 12/13/24 10:32 Freq: Status: Active Protocol: Document 01/05/25 09:49 [facility] (Rec: 01/05/25 10:42 [facility] [id number]) Physical Therapy Assessment Goals ELENA Impairment 48% Short Term Goal (STG) Pt will improve ELENA score to no greater than 40% to show improved functional ability. STG Duration 01/28 Longterm Goal (LTG) Pt will improve ELENA score to no greater than 30% to show improved functional ability. LTG Duration 03/10 sit to stand Impairment 6 in 30 sec Short Term Goal (STG) Pt will be able to do at least 8 sit to stands in 30 sec to show improve strength and dec risk for falls. STG Duration 01/28 Longterm Goal (LTG) Pt will be able to do at least 10 sit to stands in 30 sec based on age related norms to show improve strength and dec risk for falls. LTG Duration 03/08 2 min walk Short Term Goal (STG) Pt will do at least 350 ft in 2 min w/4WW STG Duration 01/28 Longterm Goal (LTG) Pt will be able to tolerate full 6 min walk test LTG Duration 03/08 Assessment Summary Assessment Pt challenged by standing activities and does require seated active (exercise) rest breaks to recover. She is tolerating inc resistance and inc in difficulty w/exercises. Physical Therapy Plan Frequency and Duration Frequency of Treatment 2x/Week Duration of treatment (weeks) 12 Plan of Care Start Date 12/14/24 Plan of Care End Date 03/08/25 Next Visit Focus/Plan Next Note Type Treatment Note Next Visit Plan standing exercises to inc tolerance to standing, DF strength, PF strength, core exercises, manual to LB ,estim w/heat, balance Review core, possibly add to HEP
--- NOTE | 2025-01-07 16:22 | PT.OTN ---
Current Diagnoses Morbid (severe) obesity due to excess calories (01/07/25) Other spondylosis with radiculopathy, lumbosacral region (01/07/25) Spondylosis without myelopathy or radiculopathy, lumbar region (01/07/25) Wedge compression fracture of first lumbar vertebra, initial encounter for closed fracture (01/07/25) Wedge compression fracture of third lumbar vertebra, initial encounter for closed fracture (01/07/25) Physical Therapy Treatment Note PT-OP-A Visit Information Start: 12/13/24 10:32 Freq: Status: Active Protocol: Document 01/07/25 13:05 [facility] (Rec: 01/07/25 16:22 [facility] Laptop) Out-Patient Physical Therapy Visit Information Visit Information Visit Type Treatment Note Visit Note Access Code: [email or web address] Visit Start Time 15:19 Visit Stop Time 16:13 Visit Number 7 Number of OUTDOOR STUDIES PROFESSOR Visits 1 PT-OP-B Current Condition Start: 12/13/24 10:32 Freq: Status: Active Protocol: Document 12/14/24 15:03 [facility] (Rec: 12/14/24 16:57 [facility] [id number]) Current Condition History of Current Condition Onset Date 10-12 years Current Complaints LBP, neuropathy History of Current Condition Pt reports at the moment, she can sit w/o pain so can sew. Cannot be on her feet for longer than about 1 min d/t pain in back. has neuropathy that gets bad enough that it is painful so she can't walk. Knees can give her issues. Pt is working w/Dr. Fofana and has not had success since injections and seems like the last one had inc pain in hip and feet. Sometimes feels like almost crumbles d/t her knees . Takes Gabapentin and doesn't feel like it does a lot except help her sleep a little better. DId PT last time with bike, Estim w/heat, massage and some stretches and exercises and it helped. Pt reports she was playing golf, go for walks, do water aerobics then got to a point where she couldn't make it to the 9th hole so had ot give it up. THat was 10 to 12 years ago. Denies injury. Typically, wakes at 4 and sits in recliner and sometimes sleeps again. walks w/cane in the house now and when leaves the house uses a 4WW Treatment Goals Patient/Caregiver Goals Get exercises to work on, be able to walk (even short walks w/walker) PT-OP-C Subjective Start: 12/13/24 10:32 Freq: Status: Active Protocol: Document 01/07/25 13:05 [facility] (Rec: 01/07/25 16:22 [facility] Laptop) OP-PT Subjective Patient Comments Patient Comments Patient reports having no pain back or ankle, does have knee pain, but it is a pain that comes and goes. Patient comments now that she doesn't have the stenosis pain she notices other pains. PT-OP-E Functional Tests Start: 12/15/24 12:03 Freq: Status: Active Protocol: Document 12/14/24 15:03 [facility] (Rec: 12/15/24 12:04 [facility] [id number]) Functional Tests 2 Minute Walk Test Distance 222ft Device Used 4WW Comments max distance SOB 30 Second Sit to Stand Test Score 6x Comments abdi chair Five Times Sit to Stand Test Score 22 sec Comments abdi chair PT-OP-G Mobility & Gait Start: 12/13/24 10:32 Freq: Status: Active Protocol: Document 12/14/24 15:03 [facility] (Rec: 12/14/24 16:57 [facility] [id number]) OP Gait Assessment Comments Gait Comments fwd flexed w/4WW dec foot clearance PT-OP-J Posture/Palpation/Skin Start: 12/13/24 10:32 Freq: Status: Active Protocol: Document 12/14/24 15:03 [facility] (Rec: 12/14/24 16:57 [facility] [id number]) Posture Evaluation Comments Posture Comments fwd flexed w/inc kyphosis and fwd head, ant pelvic tilt, slightly bent knees PT-OP-M Strength Start: 12/13/24 10:32 Freq: Status: Active Protocol: Document 12/14/24 15:03 [facility] (Rec: 12/14/24 16:57 [facility] [id number]) Hip Strength Hip Manual Muscle Testing Right Flexion (L2) 3 Fair External Rotation 3+ Fair+ Internal Rotation 4- Good- Left Flexion (L2) 3 Fair External Rotation 4- Good- Internal Rotation 4- Good- Knee Strength Knee Manual Muscle Testing Right Flexion (S2) 4 Good Extension (L3) 4- Good- Left Flexion (S2) 4+ Good+ Extension (L3) 4- Good- Ankle/Foot Strength Ankle and Foot Manual Muscle Testing Right Dorsiflexion (L4) 4 Good Plantarflexion (S1) 4 Good Left Dorsiflexion (L4) 4 Good Plantarflexion (S1) 4 Good Comments PF tested seated PT-OP-Q Treatments Start: 12/13/24 10:32 Freq: Status: Active Protocol: Document 01/07/25 13:05 [facility] (Rec: 01/07/25 16:22 [facility] Laptop) Therapeutic Exercises Sitting Exercises Pallof press Resistance Level one band Reps/Minutes X10 each side Comments verbal cues AROM DF Side bilateral Resistance level one band HEP Reps/Minutes X10 without bandX 15 with band Comments post calf stretches core warm up Sitting Exercise Name V sit back, seated pillow press Reps/Minutes 8 for 5 seconds each Comments small range hip add Side bilateral Equipment Used ball Reps/Minutes 5 sec x15 hip abd Sitting Exercise Name HEP Side bilateral Equipment Used Lvl 4 ( level 4 to HEP) Reps/Minutes 1 min holdHEP, then 15 reps Comments Verbal cues Standing Exercises calf stretches holding walking locked walker Standing Exercise Name Gastroc and soleus HEP Side bilateral Reps/Minutes 60 sec each stretch each LE Comments verbal and visual cues Heel raise Side bilateral Reps/Minutes X 10 Comments Pt ed rationale of lowering heels to floor slowly PT-OP-R Modalities Start: 12/13/24 10:32 Freq: Status: Active Protocol: Document 01/07/25 13:05 [facility] (Rec: 01/07/25 16:22 [facility] Laptop) Electric Stimulation Electric Stimulation Interferential Current (IFC) Body Location B paraspinals Intensity 25 Target/Sweep Target Patient Position Sitting Combined With Heat/Cold Hot Pack Comments Interferential target X 15 min seated per patient's request PT-OP-T Assessment and Plan Start: 12/13/24 10:32 Freq: Status: Active Protocol: Document 01/07/25 13:05 [facility] (Rec: 01/07/25 16:22 [facility] Laptop) Physical Therapy Assessment Goals ELENA Impairment 48% Short Term Goal (STG) Pt will improve ELENA score to no greater than 40% to show improved functional ability. STG Duration 30 Assisted Goal (LTG) Pt will improve ELENA score to no greater than 30% to show improved functional ability. LTG Duration 7 sit to stand Impairment 6 in 30 sec Short Term Goal (STG) Pt will be able to do at least 8 sit to stands in 30 sec to show improve strength and dec risk for falls. STG Duration 01/28 Lorry Weigher Goal (LTG) Pt will be able to do at least 10 sit to stands in 30 sec based on age related norms to show improve strength and dec risk for falls. LTG Duration 03/08 2 min walk Short Term Goal (STG) Pt will do at least 350 ft in 2 min w/4WW STG Duration 01/28 Assisted Goal (LTG) Pt will be able to tolerate full 6 min walk test LTG Duration 03/08 Assessment Summary Assessment Patient progressed to level 4 band for seated hip abd exercises this session, and no complaints of pain with seated core strengthening exercises this session. Standing for 2 + min ( slightly longer due to set up) during standing a calf stretches requires a rest post , ie standing rosa continues to be limited. Physical Therapy Plan Frequency and Duration Frequency of Treatment 2x/Week Duration of treatment (weeks) 12 Plan of Care Start Date 12/14/24 Plan of Care End Date 03/08/25 Next Visit Focus/Plan Next Note Type Treatment Note Next Visit Plan standing exercises to inc tolerance to standing, core exercises, manual to LB,estim w/heat, balance Review core, possibly add to HEP
--- NOTE | 2025-01-11 16:15 | PT.OTN ---
Current Diagnoses Morbid (severe) obesity due to excess calories (01/11/25) Other spondylosis with radiculopathy, lumbosacral region (01/11/25) Spondylosis without myelopathy or radiculopathy, lumbar region (01/11/25) Wedge compression fracture of first lumbar vertebra, initial encounter for closed fracture (01/11/25) Wedge compression fracture of third lumbar vertebra, initial encounter for closed fracture (01/11/25) Physical Therapy Treatment Note PT-OP-A Visit Information Start: 12/13/24 10:32 Freq: Status: Active Protocol: Document 01/11/25 14:57 [facility] (Rec: 01/11/25 16:14 [facility] Laptop) Out-Patient Physical Therapy Visit Information Visit Information Visit Type Treatment Note Visit Start Time 15:20 Visit Stop Time 16:06 Visit Number 8 Number of CUP[employer]A MELTING SUPERVISOR Visits 2 PT-OP-B Current Condition Start: 12/13/24 10:32 Freq: Status: Active Protocol: Document 12/14/24 15:03 [facility] (Rec: 12/14/24 16:57 [facility] [id number]) Current Condition History of Current Condition Onset Date 10-12 years Current Complaints LBP, neuropathy History of Current Condition Pt reports at the moment, she can sit w/o pain so can sew. Cannot be on her feet for longer than about 1 min d/t pain in back. has neuropathy that gets bad enough that it is painful so she can't walk. Knees can give her issues. Pt is working w/Dr. Fofana and has not had success since injections and seems like the last one had inc pain in hip and feet. Sometimes feels like almost crumbles d/t her knees . Takes Gabapentin and doesn't feel like it does a lot except help her sleep a little better. DId PT last time with bike, Estim w/heat, massage and some stretches and exercises and it helped. Pt reports she was playing golf, go for walks, do water aerobics then got to a point where she couldn't make it to the 9th hole so had ot give it up. THat was 10 to 12 years ago. Denies injury. Typically, wakes at 4 and sits in recliner and sometimes sleeps again. walks w/cane in the house now and when leaves the house uses a 4WW Treatment Goals Patient/Caregiver Goals Get exercises to work on, be able to walk (even short walks w/walker) PT-OP-C Subjective Start: 12/13/24 10:32 Freq: Status: Active Protocol: Document 01/11/25 14:57 [facility] (Rec: 01/11/25 16:14 [facility] Laptop) OP-PT Subjective Patient Comments Patient Comments Patient reports her normal pain base of back is 7/10 dec to 3/10 as day goes on. Patient request what could be used to decrease left knee pain. PT-OP-E Functional Tests Start: 12/15/24 12:03 Freq: Status: Active Protocol: Document 12/14/24 15:03 [facility] (Rec: 12/15/24 12:04 [facility] [id number]) Functional Tests 2 Minute Walk Test Distance 222ft Device Used 4WW Comments max distance SOB 30 Second Sit to Stand Test Score 6x Comments abdi chair Five Times Sit to Stand Test Score 22 sec Comments abdi chair PT-OP-G Mobility & Gait Start: 12/13/24 10:32 Freq: Status: Active Protocol: Document 12/14/24 15:03 [facility] (Rec: 12/14/24 16:57 [facility] [id number]) OP Gait Assessment Comments Gait Comments fwd flexed w/4WW dec foot clearance PT-OP-J Posture/Palpation/Skin Start: 12/13/24 10:32 Freq: Status: Active Protocol: Document 12/14/24 15:03 [facility] (Rec: 12/14/24 16:57 [facility] [id number]) Posture Evaluation Comments Posture Comments fwd flexed w/inc kyphosis and fwd head, ant pelvic tilt, slightly bent knees PT-OP-M Strength Start: 12/13/24 10:32 Freq: Status: Active Protocol: Document 12/14/24 15:03 [facility] (Rec: 12/14/24 16:57 [facility] [id number]) Hip Strength Hip Manual Muscle Testing Right Flexion (L2) 3 Fair External Rotation 3+ Fair+ Internal Rotation 4- Good- Left Flexion (L2) 3 Fair External Rotation 4- Good- Internal Rotation 4- Good- Knee Strength Knee Manual Muscle Testing Right Flexion (S2) 4 Good Extension (L3) 4- Good- Left Flexion (S2) 4+ Good+ Extension (L3) 4- Good- Ankle/Foot Strength Ankle and Foot Manual Muscle Testing Right Dorsiflexion (L4) 4 Good Plantarflexion (S1) 4 Good Left Dorsiflexion (L4) 4 Good Plantarflexion (S1) 4 Good Comments PF tested seated PT-OP-Q Treatments Start: 12/13/24 10:32 Freq: Status: Active Protocol: Document 01/11/25 14:57 [facility] (Rec: 01/11/25 16:14 [facility] Laptop) Therapeutic Exercises Supine Exercises Modified/Modified Mario stretch Supine Exercise Name one LE on bolster one on mat Reps/Minutes 60 sec each LE Comments verbal cues Sitting Exercises core warm up Sitting Exercise Name V sit back, seated pillow press Reps/Minutes X 5 V sit back X 8 for 10 sec pillow press Standing Exercises Retro stepping Reps/Minutes 10 feet X 4 Comments with UE use, monitored for pain core strengthening Standing Exercise Name 1. Pallof press 2 Rhythmic stablization Resistance level one band Reps/Minutes 1. X 15 each side 2. one min then ~30 seconds with spouse performing Comments verbal cues for patient and spouse side stepping with band Resistance level 2 band at ankles Reps/Minutes 10 feet L and R X 2 Comments verbal and visual cue Manual Therapy Treatment Consent Patient gave verbal consent for manual Yes treatment Soft Tissue Mobilization Lumbar sacral area Body Location paraspinals, intervert tissue, SI area Mobilization Type Cross-Friction,Sustained Pressure Intensity/Depth Moderate Body Position Sidelying LEs Body Location illiopsoas Mobilization Type Cross-Friction,Rolling Intensity/Depth Moderate Body Position Hooklying PT-OP-R Modalities Start: 12/13/24 10:32 Freq: Status: Active Protocol: Document 01/07/25 13:05 [facility] (Rec: 01/07/25 16:22 AB Laptop) Electric Stimulation Electric Stimulation Interferential Current (IFC) Body Location B paraspinals Intensity 25 Target/Sweep Target Patient Position Sitting Combined With Heat/Cold Hot Pack Comments Interferential target X 15 min seated per patient's request PT-OP-T Assessment and Plan Start: 12/13/24 10:32 Freq: Status: Active Protocol: Document 01/11/25 14:57 [facility] (Rec: 01/11/25 16:14 AB Laptop) Physical Therapy Assessment Goals ELENA Impairment 48% Short Term Goal (STG) Pt will improve ELENA score to no greater than 40% to show improved functional ability. STG Duration 5/30 Larry Operator Goal (LTG) Pt will improve ELENA score to no greater than 30% to show improved functional ability. LTG Duration 03/10 sit to stand Impairment 6 in 30 sec Short Term Goal (STG) Pt will be able to do at least 8 sit to stands in 30 sec to show improve strength and dec risk for falls. STG Duration 30 Larry Operator Goal (LTG) Pt will be able to do at least 10 sit to stands in 30 sec based on age related norms to show improve strength and dec risk for falls. LTG Duration 7/8 2 min walk Short Term Goal (STG) Pt will do at least 350 ft in 2 min w/4WW STG Duration 01/28 Larry Operator Goal (LTG) Pt will be able to tolerate full 6 min walk test LTG Duration 03/08 Assessment Summary Assessment Patient reports having no back pain end of session post ambulation to exit with 4 wheeled walker, comments back feels good during rhythmic stabilization ex. Physical Therapy Plan Frequency and Duration Frequency of Treatment 2x/Week Duration of treatment (weeks) 12 Plan of Care Start Date 12/14/24 Plan of Care End Date 03/08/25 Therapeutic Interventions Therapeutic Interventions Balance Training,Home Exercise Program,Joint Mobilizations, Manual Therapy,Neuromuscular Re-education,Patient/Caregiver Education,Self-Care/Home Management,Soft Tissue Mobilization,Therapeutic Activities,Therapeutic Exercises Modalities Cold Pack/Ice Massage,Electric Stimulation,Hot Packs, Traction- Mechanical, Ultrasound Next Visit Focus/Plan Next Note Type Treatment Note Next Visit Plan standing exercises to inc tolerance to standing, core exercises, manual to LB,estim w/heat, balance Review core, possibly add to HEP
--- NOTE | 2025-01-13 14:27 | PT.OTN ---
Addendum entered and electronically signed by Jolly Addison, PT 01/13/25 15:59: PT direct supervision and direction to student PT Lise Layton throughout session Original Note: Current Diagnoses Morbid (severe) obesity due to excess calories (01/13/25) Other spondylosis with radiculopathy, lumbosacral region (01/13/25) Spondylosis without myelopathy or radiculopathy, lumbar region (01/13/25) Wedge compression fracture of first lumbar vertebra, initial encounter for closed fracture (01/13/25) Wedge compression fracture of third lumbar vertebra, initial encounter for closed fracture (01/13/25) Physical Therapy Treatment Note PT-OP-A Visit Information Start: 12/13/24 10:32 Freq: Status: Active Protocol: Document 01/13/25 12:19 GG (Rec: 01/13/25 12:34 GG Laptop) Out-Patient Physical Therapy Visit Information Visit Information Visit Type Progress Note Visit Start Time 11:37 Visit Stop Time 12:16 Visit Number 9 Number of ENVIRONMENTAL PROTECTION INSPECTOR Visits 0 PT-OP-B Current Condition Start: 12/13/24 10:32 Freq: Status: Active Protocol: Document 12/14/24 15:03 [facility] (Rec: 12/14/24 16:57 [facility] [id number]) Current Condition History of Current Condition Onset Date 10-12 years Current Complaints LBP, neuropathy History of Current Condition Pt reports at the moment, she can sit w/o pain so can sew. Cannot be on her feet for longer than about 1 min d/t pain in back. has neuropathy that gets bad enough that it is painful so she can't walk. Knees can give her issues. Pt is working w/Dr. Fofana and has not had success since injections and seems like the last one had inc pain in hip and feet. Sometimes feels like almost crumbles d/t her knees . Takes Gabapentin and doesn't feel like it does a lot except help her sleep a little better. DId PT last time with bike, Estim w/heat, massage and some stretches and exercises and it helped. Pt reports she was playing golf, go for walks, do water aerobics then got to a point where she couldn't make it to the 9th hole so had ot give it up. THat was 10 to 12 years ago. Denies injury. Typically, wakes at 4 and sits in recliner and sometimes sleeps again. walks w/cane in the house now and when leaves the house uses a 4WW Treatment Goals Patient/Caregiver Goals Get exercises to work on, be able to walk (even short walks w/walker) PT-OP-C Subjective Start: 12/13/24 10:32 Freq: Status: Active Protocol: Document 01/13/25 12:19 GG (Rec: 01/13/25 12:34 GG Laptop) OP-PT Subjective Patient Comments Patient Comments Pt reports that she's been doing her seated exercises at home. PT-OP-E Functional Tests Start: 12/15/24 12:03 Freq: Status: Active Protocol: Document 01/13/25 12:19 GG (Rec: 01/13/25 12:34 GG Laptop) Functional Tests 2 Minute Walk Test Distance 253 ft Device Used 4WW Comments continued walking after into 6MWT 6 Minute Walk Test Distance 338 ft Device Used 4WW Comments made it 2:46 before needing to sit 30 Second Sit to Stand Test Score 7x PT-OP-G Mobility & Gait Start: 12/13/24 10:32 Freq: Status: Active Protocol: Document 12/14/24 15:03 [facility] (Rec: 12/14/24 16:57 [facility] [id number]) OP Gait Assessment Comments Gait Comments fwd flexed w/4WW dec foot clearance PT-OP-J Posture/Palpation/Skin Start: 12/13/24 10:32 Freq: Status: Active Protocol: Document 12/14/24 15:03 [facility] (Rec: 12/14/24 16:57 [facility] [id number]) Posture Evaluation Comments Posture Comments fwd flexed w/inc kyphosis and fwd head, ant pelvic tilt, slightly bent knees PT-OP-M Strength Start: 12/13/24 10:32 Freq: Status: Active Protocol: Document 12/14/24 15:03 [facility] (Rec: 12/14/24 16:57 [facility] [id number]) Hip Strength Hip Manual Muscle Testing Right Flexion (L2) 3 Fair External Rotation 3+ Fair+ Internal Rotation 4- Good- Left Flexion (L2) 3 Fair External Rotation 4- Good- Internal Rotation 4- Good- Knee Strength Knee Manual Muscle Testing Right Flexion (S2) 4 Good Extension (L3) 4- Good- Left Flexion (S2) 4+ Good+ Extension (L3) 4- Good- Ankle/Foot Strength Ankle and Foot Manual Muscle Testing Right Dorsiflexion (L4) 4 Good Plantarflexion (S1) 4 Good Left Dorsiflexion (L4) 4 Good Plantarflexion (S1) 4 Good Comments PF tested seated PT-OP-Q Treatments Start: 12/13/24 10:32 Freq: Status: Active Protocol: Document 01/13/25 12:19 GG (Rec: 01/13/25 12:34 GG Laptop) Therapeutic Exercises Sitting Exercises DF Resistance L3 Reps/Minutes 15x hip abd Resistance L3 Reps/Minutes 15x Standing Exercises Retro stepping Reps/Minutes 10 ft x2.5 Comments no UE use, CGA october Equipment Used hand on rail Reps/Minutes 10x Comments cued to exhale w/ lift; R hip mobilizations done prior to reduce pain Pallof press Resistance L1 Reps/Minutes 10x each direction Comments cued to exhale w/ press out Manual Therapy Treatment Consent Patient gave verbal consent for manual Yes treatment Joint Mobilizations inferior glide Joint R hip Grade II Body Position Hooklying Comments bolster under legs; did not tolerate holding leg in flexion Manual Traction Lumbar Details pulling both legs at ankles Body Position Supine Comments pt commented that she felt slight muscular stretch during long axis Details R hip Body Position Supine PT-OP-R Modalities Start: 12/13/24 10:32 Freq: Status: Active Protocol: Document 01/07/25 13:05 AB (Rec: 01/07/25 16:22 AB Laptop) Electric Stimulation Electric Stimulation Interferential Current (IFC) Body Location B paraspinals Intensity 25 Target/Sweep Target Patient Position Sitting Combined With Heat/Cold Hot Pack Comments Interferential target X 15 min seated per patient's request PT-OP-T Assessment and Plan Start: 12/13/24 10:32 Freq: Status: Active Protocol: Document 01/13/25 12:19 GG (Rec: 01/13/25 12:34 GG Laptop) Physical Therapy Assessment Goals ELENA Impairment 48% Short Term Goal (STG) Pt will improve ELENA score to no greater than 40% to show improved functional ability. 01/13 - did not get to STG Duration 01/28 Snapper On Goal (LTG) Pt will improve ELENA score to no greater than 30% to show improved functional ability. LTG Duration 710 sit to stand Impairment 6 in 30 sec Short Term Goal (STG) Pt will be able to do at least 8 sit to stands in 30 sec to show improve strength and dec risk for falls. 01/13 - improved; 7 in 30 sec STG Duration 01/28 Snapper On Goal (LTG) Pt will be able to do at least 10 sit to stands in 30 sec based on age related norms to show improve strength and dec risk for falls. LTG Duration 03/08 2 min walk Short Term Goal (STG) Pt will do at least 350 ft in 2 min w/4WW 01/13 - still improving distance (253 ft) STG Duration 01/28 Penitentiary Goal (LTG) Pt will be able to tolerate full 6 min walk test 01/13 - tolerated 2:46 LTG Duration 03/08 Assessment Summary Assessment Pt demonstrates improved tolerance to exercise testing with increased ambulation distance. Pt still has complaints of back pain and SOB that occurs with standing activities and requires rest breaks to reduce symptoms. Pt tolerated manual interventions and found prolonged relief from traction. Pt will continue to benefit from skilled PT to improve endurance and overall functional mobility to meet goals. Physical Therapy Plan Frequency and Duration Frequency of Treatment 2x/Week Duration of treatment (weeks) 12 Plan of Care Start Date 12/14/24 Plan of Care End Date 03/08/25 Next Visit Focus/Plan Next Note Type Treatment Note Next Visit Plan standing exercises to inc tolerance to standing, core exercises, manual to LB,estim w/heat, balance Review core, possibly add to HEP, f/u on results from traction and manual work, cue more for breathing, give ELENA
--- NOTE | 2025-01-18 12:27 | PT.OTN ---
Current Diagnoses Morbid (severe) obesity due to excess calories (01/18/25) Other spondylosis with radiculopathy, lumbosacral region (01/18/25) Spondylosis without myelopathy or radiculopathy, lumbar region (01/18/25) Wedge compression fracture of first lumbar vertebra, initial encounter for closed fracture (01/18/25) Wedge compression fracture of third lumbar vertebra, initial encounter for closed fracture (01/18/25) Physical Therapy Treatment Note PT-OP-A Visit Information Start: 12/13/24 10:32 Freq: Status: Active Protocol: Document 01/18/25 10:12 AB (Rec: 01/18/25 12:20 AB Laptop) Out-Patient Physical Therapy Visit Information Visit Information Visit Type Treatment Note Visit Note Access Code: [email or web address] Visit Start Time 11:30 Visit Stop Time 12:25 Visit Number 10 ( PN due 02/12/2025) Number of STONE GANG SAWYER Visits 1 PT-OP-B Current Condition Start: 12/13/24 10:32 Freq: Status: Active Protocol: Document 12/14/24 15:03 [facility] (Rec: 12/14/24 16:57 [facility] [id number]) Current Condition History of Current Condition Onset Date 10-12 years Current Complaints LBP, neuropathy History of Current Condition Pt reports at the moment, she can sit w/o pain so can sew. Cannot be on her feet for longer than about 1 min d/t pain in back. has neuropathy that gets bad enough that it is painful so she can't walk. Knees can give her issues. Pt is working w/Dr. Fofana and has not had success since injections and seems like the last one had inc pain in hip and feet. Sometimes feels like almost crumbles d/t her knees . Takes Gabapentin and doesn't feel like it does a lot except help her sleep a little better. DId PT last time with bike, Estim w/heat, massage and some stretches and exercises and it helped. Pt reports she was playing golf, go for walks, do water aerobics then got to a point where she couldn't make it to the 9th hole so had ot give it up. THat was 10 to 12 years ago. Denies injury. Typically, wakes at 4 and sits in recliner and sometimes sleeps again. walks w/cane in the house now and when leaves the house uses a 4WW Treatment Goals Patient/Caregiver Goals Get exercises to work on, be able to walk (even short walks w/walker) PT-OP-C Subjective Start: 12/13/24 10:32 Freq: Status: Active Protocol: Document 01/18/25 10:12 AB (Rec: 01/18/25 12:20 AB Laptop) OP-PT Subjective Patient Comments Patient Comments Aline reports she was sore the afternoon after last session, but by the middle of the night she was much better. Patient reports having more neuropathy pain in left foot today. Aline ambulates into session inc flexed trunk posture, dec velocity, rates back pain 2/10 comments, I' ve been sitting. Patient Questionnaires Oswestry Low Back Index Oswestry Score 40% PT-OP-E Functional Tests Start: 12/15/24 12:03 Freq: Status: Active Protocol: Document 01/13/25 12:19 GG (Rec: 01/13/25 12:34 GG Laptop) Functional Tests 2 Minute Walk Test Distance 253 ft Device Used 4WW Comments continued walking after into 6MWT 6 Minute Walk Test Distance 338 ft Device Used 4WW Comments made it 2:46 before needing to sit 30 Second Sit to Stand Test Score 7x PT-OP-G Mobility & Gait Start: 12/13/24 10:32 Freq: Status: Active Protocol: Document 12/14/24 15:03 [facility] (Rec: 12/14/24 16:57 [facility] [id number]) OP Gait Assessment Comments Gait Comments fwd flexed w/4WW dec foot clearance PT-OP-J Posture/Palpation/Skin Start: 12/13/24 10:32 Freq: Status: Active Protocol: Document 12/14/24 15:03 [facility] (Rec: 12/14/24 16:57 [facility] [id number]) Posture Evaluation Comments Posture Comments fwd flexed w/inc kyphosis and fwd head, ant pelvic tilt, slightly bent knees PT-OP-M Strength Start: 12/13/24 10:32 Freq: Status: Active Protocol: Document 12/14/24 15:03 [facility] (Rec: 12/14/24 16:57 [facility] [id number]) Hip Strength Hip Manual Muscle Testing Right Flexion (L2) 3 Fair External Rotation 3+ Fair+ Internal Rotation 4- Good- Left Flexion (L2) 3 Fair External Rotation 4- Good- Internal Rotation 4- Good- Knee Strength Knee Manual Muscle Testing Right Flexion (S2) 4 Good Extension (L3) 4- Good- Left Flexion (S2) 4+ Good+ Extension (L3) 4- Good- Ankle/Foot Strength Ankle and Foot Manual Muscle Testing Right Dorsiflexion (L4) 4 Good Plantarflexion (S1) 4 Good Left Dorsiflexion (L4) 4 Good Plantarflexion (S1) 4 Good Comments PF tested seated PT-OP-Q Treatments Start: 12/13/24 10:32 Freq: Status: Active Protocol: Document 01/18/25 10:12 AB (Rec: 01/18/25 12:20 AB Laptop) Therapeutic Exercises Supine Exercises resisted hip flexion Supine Exercise Name single leg Reps/Minutes 15 sec X 2 each LE Comments verbal cues for breathing, UE/ LE position, direction of force Breathing from dipahragm Supine Exercise Name LE's on bolster Reps/Minutes 2 min Comments verbal cues Modified/Modified Mario stretch Supine Exercise Name one LE on bolster one on mat Reps/Minutes 60 sec each LE Comments verbal cues Sitting Exercises Pallof press Resistance Level2 band Reps/Minutes X10 each side Comments verbal cues core warm up Sitting Exercise Name V sit back, seated pillow press Reps/Minutes X 5 V sit back X 8 for 10 sec pillow press Comments verbal cues Manual Therapy Treatment Consent Patient gave verbal consent for manual Yes treatment Soft Tissue Mobilization Lumbar sacral area Body Location paraspinals, intervert tissue, SI area Mobilization Type Cross-Friction,Sustained Pressure Intensity/Depth Moderate Body Position Sidelying Joint Mobilizations inferior glide Joint R hip Grade II Body Position Hooklying Comments bolster under legs; did not tolerate holding leg in flexion Manual Traction Lumbar Details pulling both legs at ankles Body Position Supine Comments pt commented that she felt slight muscular stretch during also trial of towel with mob belt behind knee long axis Details B hip PT-OP-R Modalities Start: 12/13/24 10:32 Freq: Status: Active Protocol: Document 01/18/25 10:12 AB (Rec: 01/18/25 12:20 AB Laptop) Electric Stimulation Electric Stimulation Interferential Current (IFC) Body Location B paraspinals Intensity 25 Target/Sweep Target Patient Position Sitting Combined With Heat/Cold Hot Pack Comments Interferential target X 15 min seated per patient's request PT-OP-T Assessment and Plan Start: 12/13/24 10:32 Freq: Status: Active Protocol: Document 01/18/25 10:12 AB (Rec: 01/18/25 12:20 AB Laptop) Physical Therapy Assessment Goals ELENA Impairment 48% Short Term Goal (STG) Pt will improve ELENA score to no greater than 40% to show improved functional ability. 01/13 - did not get to STG Duration achieved 40% 01/18/2025 Assisted Goal (LTG) Pt will improve ELENA score to no greater than 30% to show improved functional ability. LTG Duration 7 sit to stand Impairment 6 in 30 sec Short Term Goal (STG) Pt will be able to do at least 8 sit to stands in 30 sec to show improve strength and dec risk for falls. 01/13 - improved; 7 in 30 sec STG Duration 01/28 Assisted Goal (LTG) Pt will be able to do at least 10 sit to stands in 30 sec based on age related norms to show improve strength and dec risk for falls. LTG Duration 7 2 min walk Short Term Goal (STG) Pt will do at least 350 ft in 2 min w/4WW 01/13 - still improving distance (253 ft) STG Duration 01/28 Administrative Support Technician Goal (LTG) Pt will be able to tolerate full 6 min walk test 01/13 - tolerated 2:46 LTG Duration 03/08 Assessment Summary Assessment Aline reports the L foot pain continues to be painful end of session, comments the Aleve is wearing off. Goal met for ELENA. End of session, Aline reports back is great and foot even feels better. Physical Therapy Plan Frequency and Duration Frequency of Treatment 2x/Week Duration of treatment (weeks) 12 Plan of Care Start Date 12/14/24 Plan of Care End Date 03/08/25 Next Visit Focus/Plan Next Note Type Treatment Note Next Visit Plan standing exercises to inc tolerance to standing, core exercises, manual to LB,estim w/heat, balance continue with core ex, add to HEP gradually, cue more for breathing,
--- NOTE | 2025-01-20 17:03 | PT.OTN ---
Addendum entered and electronically signed by Jolly Addison, PT 01/25/25 08:13: PT direct supervision and direction to student PT Lise Layton throughout session Original Note: Current Diagnoses Morbid (severe) obesity due to excess calories (01/20/25) Other spondylosis with radiculopathy, lumbosacral region (01/20/25) Spondylosis without myelopathy or radiculopathy, lumbar region (01/20/25) Wedge compression fracture of first lumbar vertebra, initial encounter for closed fracture (01/20/25) Wedge compression fracture of third lumbar vertebra, initial encounter for closed fracture (01/20/25) Physical Therapy Treatment Note PT-OP-A Visit Information Start: 12/13/24 10:32 Freq: Status: Active Protocol: Document 01/20/25 12:20 GG (Rec: 01/20/25 12:33 GG Laptop) Out-Patient Physical Therapy Visit Information Visit Information Visit Type Treatment Note Visit Start Time 11:32 Visit Stop Time 12:15 Visit Number 11 Number of STUDENT SERVICES DIRECTOR Visits 0 PT-OP-B Current Condition Start: 12/13/24 10:32 Freq: Status: Active Protocol: Document 12/14/24 15:03 [facility] (Rec: 12/14/24 16:57 [facility] [id number]) Current Condition History of Current Condition Onset Date 10-12 years Current Complaints LBP, neuropathy History of Current Condition Pt reports at the moment, she can sit w/o pain so can sew. Cannot be on her feet for longer than about 1 min d/t pain in back. has neuropathy that gets bad enough that it is painful so she can't walk. Knees can give her issues. Pt is working w/Dr. Fofana and has not had success since injections and seems like the last one had inc pain in hip and feet. Sometimes feels like almost crumbles d/t her knees . Takes Gabapentin and doesn't feel like it does a lot except help her sleep a little better. DId PT last time with bike, Estim w/heat, massage and some stretches and exercises and it helped. Pt reports she was playing golf, go for walks, do water aerobics then got to a point where she couldn't make it to the 9th hole so had ot give it up. THat was 10 to 12 years ago. Denies injury. Typically, wakes at 4 and sits in recliner and sometimes sleeps again. walks w/cane in the house now and when leaves the house uses a 4WW Treatment Goals Patient/Caregiver Goals Get exercises to work on, be able to walk (even short walks w/walker) PT-OP-C Subjective Start: 12/13/24 10:32 Freq: Status: Active Protocol: Document 01/20/25 12:20 GG (Rec: 01/20/25 12:33 GG Laptop) OP-PT Subjective Patient Comments Patient Comments Pt reports that she felt good following last session. Neuropathy in L foot is still painful. PT-OP-E Functional Tests Start: 12/15/24 12:03 Freq: Status: Active Protocol: Document 01/13/25 12:19 GG (Rec: 01/13/25 12:34 GG Laptop) Functional Tests 2 Minute Walk Test Distance 253 ft Device Used 4WW Comments continued walking after into 6MWT 6 Minute Walk Test Distance 338 ft Device Used 4WW Comments made it 2:46 before needing to sit 30 Second Sit to Stand Test Score 7x PT-OP-G Mobility & Gait Start: 12/13/24 10:32 Freq: Status: Active Protocol: Document 12/14/24 15:03 [facility] (Rec: 12/14/24 16:57 [facility] [id number]) OP Gait Assessment Comments Gait Comments fwd flexed w/4WW dec foot clearance PT-OP-J Posture/Palpation/Skin Start: 12/13/24 10:32 Freq: Status: Active Protocol: Document 12/14/24 15:03 [facility] (Rec: 12/14/24 16:57 [facility] [id number]) Posture Evaluation Comments Posture Comments fwd flexed w/inc kyphosis and fwd head, ant pelvic tilt, slightly bent knees PT-OP-M Strength Start: 12/13/24 10:32 Freq: Status: Active Protocol: Document 12/14/24 15:03 [facility] (Rec: 12/14/24 16:57 [facility] [id number]) Hip Strength Hip Manual Muscle Testing Right Flexion (L2) 3 Fair External Rotation 3+ Fair+ Internal Rotation 4- Good- Left Flexion (L2) 3 Fair External Rotation 4- Good- Internal Rotation 4- Good- Knee Strength Knee Manual Muscle Testing Right Flexion (S2) 4 Good Extension (L3) 4- Good- Left Flexion (S2) 4+ Good+ Extension (L3) 4- Good- Ankle/Foot Strength Ankle and Foot Manual Muscle Testing Right Dorsiflexion (L4) 4 Good Plantarflexion (S1) 4 Good Left Dorsiflexion (L4) 4 Good Plantarflexion (S1) 4 Good Comments PF tested seated PT-OP-Q Treatments Start: 12/13/24 10:32 Freq: Status: Active Protocol: Document 01/20/25 12:20 GG (Rec: 01/20/25 12:33 GG Laptop) Therapeutic Exercises Sitting Exercises core Sitting Exercise Name core act. w/ alternating shoulder flexion Comments cue to exhale w/ arm lift DF Side bilateral Resistance L1 Reps/Minutes 15x hip add Sitting Exercise Name ball squeeze Reps/Minutes 25x hip abd Resistance L4 Reps/Minutes 15x Standing Exercises Retro stepping Reps/Minutes 10 ft x4 Comments no UE use, SBA march Equipment Used hand on rail Reps/Minutes 10x B Comments cued to exhale w/ lift Manual Therapy Treatment Consent Patient gave verbal consent for manual Yes treatment Soft Tissue Mobilization Lumbar sacral area Body Location lumbar paraspinals Mobilization Type Sustained Pressure Intensity/Depth Moderate Body Position seated Comments done while pt flexes forward and returns to upright (cue to drive through feet on return) Manual Traction Lumbar Details pulling both legs at ankles Body Position Supine Reps/Duration 2 min Comments pt commented that she felt slight muscular stretch during also trial of towel with mob belt behind knee long axis Details R hip Body Position Supine Reps/Duration 2 min Comments other leg on bolster Neuro Re-Education Treatment Balance Activities firm Comments 1. WBOS EC (30s) 2. NBOS EO/EC (30s each) foam Details tandem EC Reps/Duration 30s each PT-OP-R Modalities Start: 12/13/24 10:32 Freq: Status: Active Protocol: Document 01/18/25 10:12 AB (Rec: 01/18/25 12:20 AB Laptop) Electric Stimulation Electric Stimulation Interferential Current (IFC) Body Location B paraspinals Intensity 25 Target/Sweep Target Patient Position Sitting Combined With Heat/Cold Hot Pack Comments Interferential target X 15 min seated per patient's request PT-OP-T Assessment and Plan Start: 12/13/24 10:32 Freq: Status: Active Protocol: Document 01/20/25 12:20 GG (Rec: 01/20/25 12:33 GG Laptop) Physical Therapy Assessment Goals ELENA Impairment 48% Short Term Goal (STG) Pt will improve ELENA score to no greater than 40% to show improved functional ability. 01/13 - did not get to STG Duration achieved 40% 01/18/2025 Long-Term Goal (LTG) Pt will improve ELENA score to no greater than 30% to show improved functional ability. LTG Duration 7 sit to stand Impairment 6 in 30 sec Short Term Goal (STG) Pt will be able to do at least 8 sit to stands in 30 sec to show improve strength and dec risk for falls. 01/13 - improved; 7 in 30 sec STG Duration 01/28 Long-Term Goal (LTG) Pt will be able to do at least 10 sit to stands in 30 sec based on age related norms to show improve strength and dec risk for falls. LTG Duration 03/08 2 min walk Short Term Goal (STG) Pt will do at least 350 ft in 2 min w/4WW 01/13 - still improving distance (253 ft) STG Duration 01/28 Manager Books Goal (LTG) Pt will be able to tolerate full 6 min walk test 01/13 - tolerated 2:46 LTG Duration 03/08 Assessment Summary Assessment Pt has improved in standing tolerance as seen by increased laps performed and time doing upright activities. Pt tolerated new balance activities and will continue to progress those interventions. Physical Therapy Plan Frequency and Duration Frequency of Treatment 2x/Week Duration of treatment (weeks) 12 Plan of Care Start Date 12/14/24 Plan of Care End Date 03/08/25 Therapeutic Interventions Therapeutic Interventions Balance Training,Home Exercise Program,Joint Mobilizations, Manual Therapy,Neuromuscular Re-education,Patient/Caregiver Education,Self-Care/Home Management,Soft Tissue Mobilization,Therapeutic Activities,Therapeutic Exercises Modalities Cold Pack/Ice Massage,Electric Stimulation,Hot Packs, Traction- Mechanical, Ultrasound Next Visit Focus/Plan Next Note Type Treatment Note Next Visit Plan standing exercises to inc tolerance to standing, core exercises, manual to LB,estim w/heat, balance continue with core ex, add to HEP gradually, cue more for breathing,
--- NOTE | 2025-01-27 15:13 | PT.OTN ---
Addendum entered and electronically signed by Jolly Addison, PT 01/31/25 09:21: PT direct supervision and direction to student PT Lise Layton throughout session Original Note: Current Diagnoses Morbid (severe) obesity due to excess calories (01/27/25) Other spondylosis with radiculopathy, lumbosacral region (01/27/25) Spondylosis without myelopathy or radiculopathy, lumbar region (01/27/25) Wedge compression fracture of first lumbar vertebra, initial encounter for closed fracture (01/27/25) Wedge compression fracture of third lumbar vertebra, initial encounter for closed fracture (01/27/25) Physical Therapy Treatment Note PT-OP-A Visit Information Start: 12/13/24 10:32 Freq: Status: Active Protocol: Document 01/27/25 12:23 GG (Rec: 01/27/25 12:38 GG Laptop) Out-Patient Physical Therapy Visit Information Visit Information Visit Type Treatment Note Visit Start Time 11:34 Visit Stop Time 12:15 Visit Number 12 Number of ROCK STAR Visits 0 PT-OP-B Current Condition Start: 12/13/24 10:32 Freq: Status: Active Protocol: Document 12/14/24 15:03 [facility] (Rec: 12/14/24 16:57 [facility] [id number]) Current Condition History of Current Condition Onset Date 10-12 years Current Complaints LBP, neuropathy History of Current Condition Pt reports at the moment, she can sit w/o pain so can sew. Cannot be on her feet for longer than about 1 min d/t pain in back. has neuropathy that gets bad enough that it is painful so she can't walk. Knees can give her issues. Pt is working w/Dr. Fofana and has not had success since injections and seems like the last one had inc pain in hip and feet. Sometimes feels like almost crumbles d/t her knees . Takes Gabapentin and doesn't feel like it does a lot except help her sleep a little better. DId PT last time with bike, Estim w/heat, massage and some stretches and exercises and it helped. Pt reports she was playing golf, go for walks, do water aerobics then got to a point where she couldn't make it to the 9th hole so had ot give it up. THat was 10 to 12 years ago. Denies injury. Typically, wakes at 4 and sits in recliner and sometimes sleeps again. walks w/cane in the house now and when leaves the house uses a 4WW Treatment Goals Patient/Caregiver Goals Get exercises to work on, be able to walk (even short walks w/walker) PT-OP-C Subjective Start: 12/13/24 10:32 Freq: Status: Active Protocol: Document 01/27/25 12:23 GG (Rec: 01/27/25 12:38 GG Laptop) OP-PT Subjective Patient Comments Patient Comments Pt reports that the traction done last session led to knee pain the following day and requested to just focus on balance and exercises today. Her knee is feeling okay today . PT-OP-E Functional Tests Start: 12/15/24 12:03 Freq: Status: Active Protocol: Document 01/13/25 12:19 GG (Rec: 01/13/25 12:34 GG Laptop) Functional Tests 2 Minute Walk Test Distance 253 ft Device Used 4WW Comments continued walking after into 6MWT 6 Minute Walk Test Distance 338 ft Device Used 4WW Comments made it 2:46 before needing to sit 30 Second Sit to Stand Test Score 7x PT-OP-G Mobility & Gait Start: 12/13/24 10:32 Freq: Status: Active Protocol: Document 12/14/24 15:03 [facility] (Rec: 12/14/24 16:57 [facility] [id number]) OP Gait Assessment Comments Gait Comments fwd flexed w/4WW dec foot clearance PT-OP-J Posture/Palpation/Skin Start: 12/13/24 10:32 Freq: Status: Active Protocol: Document 12/14/24 15:03 [facility] (Rec: 12/14/24 16:57 [facility] [id number]) Posture Evaluation Comments Posture Comments fwd flexed w/inc kyphosis and fwd head, ant pelvic tilt, slightly bent knees PT-OP-M Strength Start: 12/13/24 10:32 Freq: Status: Active Protocol: Document 12/14/24 15:03 [facility] (Rec: 12/14/24 16:57 [facility] [id number]) Hip Strength Hip Manual Muscle Testing Right Flexion (L2) 3 Fair External Rotation 3+ Fair+ Internal Rotation 4- Good- Left Flexion (L2) 3 Fair External Rotation 4- Good- Internal Rotation 4- Good- Knee Strength Knee Manual Muscle Testing Right Flexion (S2) 4 Good Extension (L3) 4- Good- Left Flexion (S2) 4+ Good+ Extension (L3) 4- Good- Ankle/Foot Strength Ankle and Foot Manual Muscle Testing Right Dorsiflexion (L4) 4 Good Plantarflexion (S1) 4 Good Left Dorsiflexion (L4) 4 Good Plantarflexion (S1) 4 Good Comments PF tested seated PT-OP-Q Treatments Start: 12/13/24 10:32 Freq: Status: Active Protocol: Document 01/27/25 12:23 GG (Rec: 01/27/25 12:38 GG Laptop) Therapeutic Exercises Sitting Exercises knee flex Resistance L3 Reps/Minutes x15 B knee ext Resistance L3 Reps/Minutes x15 B DF Side bilateral Resistance L2 Reps/Minutes 15x hip add Sitting Exercise Name ball squeeze Reps/Minutes 25x hip abd Resistance L3 Reps/Minutes 15x stretch Sitting Exercise Name 1. modified hip flexor 2. hamstring 3. QL Side bilateral Reps/Minutes 2x30s ea Standing Exercises weight shift Standing Exercise Name lateral rocking Side bilateral Reps/Minutes x10 ea march Equipment Used hand on rail Reps/Minutes 15x B Comments cue breathing and standing tall Heel raise Side bilateral Reps/Minutes x10 calf stretch Side bilateral Reps/Minutes 30sec Neuro Re-Education Treatment Balance Activities tilt board Details fwd and lat Reps/Duration x30s each Comments WBOS and NBOS foam Details tandem Reps/Duration 2x30s each PT-OP-R Modalities Start: 12/13/24 10:32 Freq: Status: Active Protocol: Document 01/18/25 10:12 AB (Rec: 01/18/25 12:20 AB Laptop) Electric Stimulation Electric Stimulation Interferential Current (IFC) Body Location B paraspinals Intensity 25 Target/Sweep Target Patient Position Sitting Combined With Heat/Cold Hot Pack Comments Interferential target X 15 min seated per patient's request PT-OP-T Assessment and Plan Start: 12/13/24 10:32 Freq: Status: Active Protocol: Document 01/27/25 12:23 GG (Rec: 01/27/25 12:38 GG Laptop) Physical Therapy Assessment Goals ELENA Impairment 48% Short Term Goal (STG) Pt will improve ELENA score to no greater than 40% to show improved functional ability. 01/13 - did not get to STG Duration achieved 40% 01/18/2025 Prison Goal (LTG) Pt will improve ELENA score to no greater than 30% to show improved functional ability. LTG Duration 7/10 sit to stand Impairment 6 in 30 sec Short Term Goal (STG) Pt will be able to do at least 8 sit to stands in 30 sec to show improve strength and dec risk for falls. 01/13 - improved; 7 in 30 sec STG Duration 01/28 Prison Goal (LTG) Pt will be able to do at least 10 sit to stands in 30 sec based on age related norms to show improve strength and dec risk for falls. LTG Duration 03/08 2 min walk Short Term Goal (STG) Pt will do at least 350 ft in 2 min w/4WW 01/13 - still improving distance (253 ft) STG Duration 01/28 Household Cook Goal (LTG) Pt will be able to tolerate full 6 min walk test 01/13 - tolerated 2:46 LTG Duration 03/08 Assessment Summary Assessment Pt cont to improve with standing tolerance during exercise and ability to balance with new activities. Requires cueing for breathing coordination and staying upright w/ standing exercises. Avoiding manual interventions today d/t knee pain from previous appt and will cont to monitor and adjust interventions as needed. Physical Therapy Plan Frequency and Duration Frequency of Treatment 2x/Week Duration of treatment (weeks) 12 Plan of Care Start Date 12/14/24 Plan of Care End Date 03/08/25 Therapeutic Interventions Therapeutic Interventions Balance Training,Home Exercise Program,Joint Mobilizations, Manual Therapy,Neuromuscular Re-education,Patient/Caregiver Education,Self-Care/Home Management,Soft Tissue Mobilization,Therapeutic Activities,Therapeutic Exercises Modalities Cold Pack/Ice Massage,Electric Stimulation,Hot Packs, Traction- Mechanical, Ultrasound Next Visit Focus/Plan Next Note Type Treatment Note Next Visit Plan standing exercises to inc tolerance to standing, core exercises, manual to LB,estim w/heat, balance continue with core ex, add to HEP gradually, cue more for breathing, f/u about knee pain following traction vs. exercise
--- NOTE | 2025-02-01 15:47 | PT.OTN ---
Current Diagnoses Morbid (severe) obesity due to excess calories (02/01/25) Other spondylosis with radiculopathy, lumbosacral region (02/01/25) Spondylosis without myelopathy or radiculopathy, lumbar region (02/01/25) Wedge compression fracture of first lumbar vertebra, initial encounter for closed fracture (02/01/25) Wedge compression fracture of third lumbar vertebra, initial encounter for closed fracture (02/01/25) Physical Therapy Treatment Note PT-OP-A Visit Information Start: 12/13/24 10:32 Freq: Status: Active Protocol: Document 02/01/25 14:35 AB (Rec: 02/01/25 15:33 AB Laptop) Out-Patient Physical Therapy Visit Information Visit Information Visit Type Treatment Note Visit Start Time 14:36 Visit Stop Time 15:17 Visit Number 13( PN due 02/12/2025) Number of CAR ICER Visits 1 PT-OP-B Current Condition Start: 12/13/24 10:32 Freq: Status: Active Protocol: Document 12/14/24 15:03 [facility] (Rec: 12/14/24 16:57 [facility] [id number]) Current Condition History of Current Condition Onset Date 10-12 years Current Complaints LBP, neuropathy History of Current Pt reports at the moment, she can sit w/o pain so can Condition sew. Cannot be on her feet for longer than about 1 min d/t pain in back. has neuropathy that gets bad enough that it is painful so she can't walk. Knees can give her issues. Pt is working w/Dr. Fofana and has not had success since injections and seems like the last one had inc pain in hip and feet. Sometimes feels like almost crumbles d/t her knees. Takes Gabapentin and doesn't feel like it does a lot except help her sleep a little better. DId PT last time with bike, Estim w/ heat, massage and some stretches and exercises and it helped. Pt reports she was playing golf, go for walks, do water aerobics then got to a point where she couldn 't make it to the 9th hole so had ot give it up. THat was 10 to 12 years ago. Denies injury. Typically, wakes at 4 and sits in recliner and sometimes sleeps again. walks w/cane in the house now and when leaves the house uses a 4WW Treatment Goals Patient/Caregiver Get exercises to work on, be able to walk (even short Goals walks w/walker) PT-OP-C Subjective Start: 12/13/24 10:32 Freq: Status: Active Protocol: Document 02/01/25 14:35 AB (Rec: 02/01/25 15:33 AB Laptop) OP-PT Subjective Patient Comments Patient Comments Patient rates L knee 2-3/10 ambulating into session with 4 wheeled walker. Patient reports she does what she can with the exercises every day, but does some every day. Patient reports increased knee pain on stairs when first out of bed. Patient reports L knee has given out ( very intermittent/mostly in the mornings ), but she has not fallen when it gave out. SLS R LE 1 sec X 3 L LE less than one sec X 3 without UE use start of session. SLS R LE 2 sec L LE 1 sec post glute med activation PT-OP-E Functional Tests Start: 12/15/24 12:03 Freq: Status: Active Protocol: Document 01/13/25 12:19 GG (Rec: 01/13/25 12:34 GG Laptop) Functional Tests 2 Minute Walk Test Distance 253 ft Device Used 4WW Comments continued walking after into 6MWT 6 Minute Walk Test Distance 338 ft Device Used 4WW Comments made it 2:46 before needing to sit 30 Second Sit to Stand Test Score 7x PT-OP-G Mobility & Gait Start: 12/13/24 10:32 Freq: Status: Active Protocol: Document 12/14/24 15:03 [facility] (Rec: 12/14/24 16:57 [facility] [id number]) OP Gait Assessment Comments Gait Comments fwd flexed w/4WW dec foot clearance PT-OP-J Posture/Palpation/Skin Start: 12/13/24 10:32 Freq: Status: Active Protocol: Document 12/14/24 15:03 [facility] (Rec: 12/14/24 16:57 [facility] [id number]) Posture Evaluation Comments Posture Comments fwd flexed w/inc kyphosis and fwd head, ant pelvic tilt , slightly bent knees PT-OP-M Strength Start: 12/13/24 10:32 Freq: Status: Active Protocol: Document 12/14/24 15:03 [facility] (Rec: 12/14/24 16:57 [facility] [id number]) Hip Strength Hip Manual Muscle Testing Right Flexion (L2) 3 Fair External Rotation 3+ Fair+ Internal Rotation 4- Good- Left Flexion (L2) 3 Fair External Rotation 4- Good- Internal Rotation 4- Good- Knee Strength Knee Manual Muscle Testing Right Flexion (S2) 4 Good Extension (L3) 4- Good- Left Flexion (S2) 4+ Good+ Extension (L3) 4- Good- Ankle/Foot Strength Ankle and Foot Manual Muscle Testing Right Dorsiflexion (L4) 4 Good Plantarflexion (S1) 4 Good Left Dorsiflexion (L4) 4 Good Plantarflexion (S1) 4 Good Comments PF tested seated PT-OP-Q Treatments Start: 12/13/24 10:32 Freq: Status: Active Protocol: Document 02/01/25 14:35 AB (Rec: 02/01/25 15:33 AB Laptop) Therapeutic Exercises Sitting Exercises Pallof press Resistance Level2 band Reps/Minutes X10 each side Comments verbal cues pursed lip breathing in pos for breathlesness Sitting Exercise breathing from diaphragm this session to relax muscles Name post standing Reps/Minutes 2 min X 2 Comments between bouts of standing balance exercises to dec pain hip abd Resistance L3 Reps/Minutes one one minute hold then X 15 without hold Comments Verbal cues for one minute hold Standing Exercises Pallof press Resistance L2 Reps/Minutes 10x each direction Comments cued to exhale w/ press out sit to stand Side bilateral Equipment Used [place] band Reps/Minutes 10 Comments cues slower decent Neuro Re-Education Treatment Balance Activities tandem stepping Reps/Duration 10 feet X 6 Comments CGA with UE use as needed tilt board Details fwd and lat Reps/Duration x28 -25 each Comments NBOS foam Details stagger balloon volley Reps/Duration 1 min then 2 min Comments CGA SLS Details without UE use with finger tip support CGA Reps/Duration X1-3 X 3 hurdles Details 1 rail Comments 1. fwd recip w/rail X 2 2. sidestep w/ rail X 2 PT-OP-R Modalities Start: 12/13/24 10:32 Freq: Status: Active Protocol: Document 01/18/25 10:12 AB (Rec: 01/18/25 12:20 AB Laptop) Electric Stimulation Electric Stimulation Interferential Current (IFC) Body Location B paraspinals Intensity 25 Target/Sweep Target Patient Position Sitting Combined With Heat/ Hot Pack Cold Comments Interferential target X 15 min seated per patient's request PT-OP-T Assessment and Plan Start: 12/13/24 10:32 Freq: Status: Active Protocol: Document 02/01/25 14:35 AB (Rec: 02/01/25 15:33 AB Laptop) Physical Therapy Assessment Goals ELENA Impairment 48% Short Term Goal (STG Pt will improve ELENA score to no greater than 40% to ) show improved functional ability. 01/13 - did not get to STG Duration achieved 40% 01/18/2025 Group Home Goal (LTG) Pt will improve ELENA score to no greater than 30% to show improved functional ability. LTG Duration 7 sit to stand Impairment 6 in 30 sec Short Term Goal (STG Pt will be able to do at least 8 sit to stands in 30 ) sec to show improve strength and dec risk for falls. 01/13 - improved; 7 in 30 sec STG Duration 01/28 Group Home Goal (LTG) Pt will be able to do at least 10 sit to stands in 30 sec based on age related norms to show improve strength and dec risk for falls. LTG Duration 78 2 min walk Short Term Goal (STG Pt will do at least 350 ft in 2 min w/4WW ) 01/13 - still improving distance (253 ft) STG Duration 30 Group Home Goal (LTG) Pt will be able to tolerate full 6 min walk test 01/13 - tolerated 2:46 LTG Duration 8 Assessment Summary Assessment Aline welsh L knee pain 10/11 end of session ambulating out of session with 4 wheeled walker. Alt seated ex and standing exercises required due to limited rosa to standing for balance ex. Physical Therapy Plan Frequency and Duration Frequency of 2x/Week Treatment Duration of 12 treatment (weeks) Plan of Care Start 12/14/24 Date Plan of Care End 03/08/25 Date Next Visit Focus/Plan Next Note Type Treatment Note Next Visit Plan standing exercises to inc tolerance to standing, core exercises, manual to LB,estim w/heat, balance continue with core ex, add to HEP gradually, cue more for breathing,
--- NOTE | 2025-02-09 21:55 | PT.OTN ---
Current Diagnoses Morbid (severe) obesity due to excess calories (02/09/25) Other spondylosis with radiculopathy, lumbosacral region (02/09/25) Spondylosis without myelopathy or radiculopathy, lumbar region (02/09/25) Wedge compression fracture of first lumbar vertebra, initial encounter for closed fracture (02/09/25) Wedge compression fracture of third lumbar vertebra, initial encounter for closed fracture (02/09/25) Physical Therapy Treatment Note PT-OP-A Visit Information Start: 12/13/24 10:32 Freq: Status: Active Protocol: Document 02/09/25 13:02 PHARMACIST AIDE (Rec: 02/09/25 13:48 PHARMACIST AIDE Laptop) Out-Patient Physical Therapy Visit Information Visit Information Visit Type Treatment Note Visit Start Time 13:03 Visit Stop Time 13:46 Visit Number 14 Number of LARGE ENGINE ASSEMBLER Visits 0 PT-OP-B Current Condition Start: 12/13/24 10:32 Freq: Status: Active Protocol: Document 12/14/24 15:03 [facility] (Rec: 12/14/24 16:57 [facility] [id number]) Current Condition History of Current Condition Onset Date 10-12 years Current Complaints LBP, neuropathy History of Current Pt reports at the moment, she can sit w/o pain so can Condition sew. Cannot be on her feet for longer than about 1 min d/t pain in back. has neuropathy that gets bad enough that it is painful so she can't walk. Knees can give her issues. Pt is working w/Dr. Fofana and has not had success since injections and seems like the last one had inc pain in hip and feet. Sometimes feels like almost crumbles d/t her knees. Takes Gabapentin and doesn't feel like it does a lot except help her sleep a little better. DId PT last time with bike, Estim w/ heat, massage and some stretches and exercises and it helped. Pt reports she was playing golf, go for walks, do water aerobics then got to a point where she couldn 't make it to the 9th hole so had ot give it up. THat was 10 to 12 years ago. Denies injury. Typically, wakes at 4 and sits in recliner and sometimes sleeps again. walks w/cane in the house now and when leaves the house uses a 4WW Treatment Goals Patient/Caregiver Get exercises to work on, be able to walk (even short Goals walks w/walker) PT-OP-C Subjective Start: 12/13/24 10:32 Freq: Status: Active Protocol: Document 02/09/25 13:02 PHARMACIST AIDE (Rec: 02/09/25 13:48 PHARMACIST AIDE Laptop) OP-PT Subjective Patient Comments Patient Comments Pt reports new pain she has never had before starting over the weekend, sharp pain to L low back and radiating to just below L buttock. This morning pain was at 8/10 but took an Alieve and pain is now down to a 4/10 and able to come into therapy today. Feels sharp like nerve pain vs normal achy pain from stenosis. Sitting makes pain feel better, standing makes pain feel worse. PT-OP-E Functional Tests Start: 12/15/24 12:03 Freq: Status: Active Protocol: Document 01/13/25 12:19 GG (Rec: 01/13/25 12:34 GG Laptop) Functional Tests 2 Minute Walk Test Distance 253 ft Device Used 4WW Comments continued walking after into 6MWT 6 Minute Walk Test Distance 338 ft Device Used 4WW Comments made it 2:46 before needing to sit 30 Second Sit to Stand Test Score 7x PT-OP-G Mobility & Gait Start: 12/13/24 10:32 Freq: Status: Active Protocol: Document 12/14/24 15:03 [facility] (Rec: 12/14/24 16:57 [facility] [id number]) OP Gait Assessment Comments Gait Comments fwd flexed w/4WW dec foot clearance PT-OP-J Posture/Palpation/Skin Start: 12/13/24 10:32 Freq: Status: Active Protocol: Document 12/14/24 15:03 [facility] (Rec: 12/14/24 16:57 [facility] [id number]) Posture Evaluation Comments Posture Comments fwd flexed w/inc kyphosis and fwd head, ant pelvic tilt , slightly bent knees PT-OP-M Strength Start: 12/13/24 10:32 Freq: Status: Active Protocol: Document 12/14/24 15:03 [facility] (Rec: 12/14/24 16:57 [facility] [id number]) Hip Strength Hip Manual Muscle Testing Right Flexion (L2) 3 Fair External Rotation 3+ Fair+ Internal Rotation 4- Good- Left Flexion (L2) 3 Fair External Rotation 4- Good- Internal Rotation 4- Good- Knee Strength Knee Manual Muscle Testing Right Flexion (S2) 4 Good Extension (L3) 4- Good- Left Flexion (S2) 4+ Good+ Extension (L3) 4- Good- Ankle/Foot Strength Ankle and Foot Manual Muscle Testing Right Dorsiflexion (L4) 4 Good Plantarflexion (S1) 4 Good Left Dorsiflexion (L4) 4 Good Plantarflexion (S1) 4 Good Comments PF tested seated PT-OP-Q Treatments Start: 12/13/24 10:32 Freq: Status: Active Protocol: Document 02/09/25 13:02 PHARMACIST AIDE (Rec: 02/09/25 13:48 PHARMACIST AIDE Laptop) Therapeutic Exercises Supine Exercises PPT Side bilateral Reps/Minutes x10 with TC at low back Comments VC for exhale while andre TA Piriformis Stretch Side left Reps/Minutes 60sx2 Comments Manual stretch Sitting Exercises stretch Sitting Exercise Forward lean with slide forward/back of hands on knees Name for lumbar stretch Side bilateral Reps/Minutes x10 with 5s hold Comments reduced pain Manual Therapy Treatment Consent Patient gave verbal Yes consent for manual treatment Soft Tissue Mobilization Piriformis Body Location L piriformis Mobilization Type Strain/Counterstrain Body Position R sidelying Comments 90s x2 sessions, L into passive flexion and ER PT-OP-R Modalities Start: 12/13/24 10:32 Freq: Status: Active Protocol: Document 01/18/25 10:12 AB (Rec: 01/18/25 12:20 AB Laptop) Electric Stimulation Electric Stimulation Interferential Current (IFC) Body Location B paraspinals Intensity 25 Target/Sweep Target Patient Position Sitting Combined With Heat/ Hot Pack Cold Comments Interferential target X 15 min seated per patient's request PT-OP-T Assessment and Plan Start: 12/13/24 10:32 Freq: Status: Active Protocol: Document 02/09/25 13:02 PHARMACIST AIDE (Rec: 02/09/25 21:51 PHARMACIST AIDE Laptop) Physical Therapy Assessment Goals ELENA Impairment 48% Short Term Goal (STG Pt will improve ELENA score to no greater than 40% to ) show improved functional ability. 01/13 - did not get to STG Duration achieved 40% 01/18/2025 Intermediate Goal (LTG) Pt will improve ELENA score to no greater than 30% to show improved functional ability. LTG Duration 10 sit to stand Impairment 6 in 30 sec Short Term Goal (STG Pt will be able to do at least 8 sit to stands in 30 ) sec to show improve strength and dec risk for falls. 01/13 - improved; 7 in 30 sec STG Duration 01/28 Intermediate Goal (LTG) Pt will be able to do at least 10 sit to stands in 30 sec based on age related norms to show improve strength and dec risk for falls. LTG Duration 03/08 2 min walk Short Term Goal (STG Pt will do at least 350 ft in 2 min w/4WW ) 01/13 - still improving distance (253 ft) STG Duration 01/28 Celebrity Chef Entrepreneur Media Personality Goal (LTG) Pt will be able to tolerate full 6 min walk test 01/13 - tolerated 2:46 LTG Duration 03/08 Assessment Summary Assessment Pt limited this session with significant pain to L piriformis, focus this session was on relieving this pain for continued functional mobility after session. Pt tolerated strain counter strain technique to L piriformis with reduced pain and supine L piriformis stretch. Pt with increased lumbar pain once sitting upright after laying down on tx table for long amount of time but reduced with lumbar flex stretch multiple repetitions. Physical Therapy Plan Frequency and Duration Frequency of 2x/Week Treatment Duration of 12 treatment (weeks) Plan of Care Start 12/14/24 Date Plan of Care End 03/08/25 Date Therapeutic Interventions Therapeutic Balance Training,Home Exercise Program,Joint Interventions Mobilizations,Manual Therapy,Neuromuscular Re-education ,Patient/Caregiver Education,Self-Care/Home Management, Soft Tissue Mobilization,Therapeutic Activities, Therapeutic Exercises Modalities Cold Pack/Ice Massage,Electric Stimulation,Hot Packs, Traction- Mechanical,Ultrasound Next Visit Focus/Plan Next Note Type Treatment Note Next Visit Plan SCS and stretch to L piriformis as needed, standing exercises to inc tolerance to standing, core exercises, manual to LB,estim w/heat, balance continue with core ex, add to HEP gradually, cue more for breathing,
--- NOTE | 2025-02-11 13:48 | PT.OTN ---
Current Diagnoses Morbid (severe) obesity due to excess calories (02/11/25) Other spondylosis with radiculopathy, lumbosacral region (02/11/25) Spondylosis without myelopathy or radiculopathy, lumbar region (02/11/25) Wedge compression fracture of first lumbar vertebra, initial encounter for closed fracture (02/11/25) Wedge compression fracture of third lumbar vertebra, initial encounter for closed fracture (02/11/25) Physical Therapy Treatment Note PT-OP-A Visit Information Start: 12/13/24 10:32 Freq: Status: Active Protocol: Document 02/11/25 13:03 STUDENT OUTREACH COORDINATOR (Rec: 02/11/25 13:47 STUDENT OUTREACH COORDINATOR Laptop) Out-Patient Physical Therapy Visit Information Visit Information Visit Type Treatment Note Visit Start Time 13:04 Visit Number 15 Number of PENSION MANAGER Visits 0 PT-OP-B Current Condition Start: 12/13/24 10:32 Freq: Status: Active Protocol: Document 12/14/24 15:03 [facility] (Rec: 12/14/24 16:57 [facility] [id number]) Current Condition History of Current Condition Onset Date 10-12 years Current Complaints LBP, neuropathy History of Current Pt reports at the moment, she can sit w/o pain so can Condition sew. Cannot be on her feet for longer than about 1 min d/t pain in back. has neuropathy that gets bad enough that it is painful so she can't walk. Knees can give her issues. Pt is working w/Dr. Fofana and has not had success since injections and seems like the last one had inc pain in hip and feet. Sometimes feels like almost crumbles d/t her knees. Takes Gabapentin and doesn't feel like it does a lot except help her sleep a little better. DId PT last time with bike, Estim w/ heat, massage and some stretches and exercises and it helped. Pt reports she was playing golf, go for walks, do water aerobics then got to a point where she couldn 't make it to the 9th hole so had ot give it up. THat was 10 to 12 years ago. Denies injury. Typically, wakes at 4 and sits in recliner and sometimes sleeps again. walks w/cane in the house now and when leaves the house uses a 4WW Treatment Goals Patient/Caregiver Get exercises to work on, be able to walk (even short Goals walks w/walker) PT-OP-C Subjective Start: 12/13/24 10:32 Freq: Status: Active Protocol: Document 02/11/25 13:03 STUDENT OUTREACH COORDINATOR (Rec: 02/11/25 13:47 STUDENT OUTREACH COORDINATOR Laptop) OP-PT Subjective Patient Comments Patient Comments Pt reports her pain she had at the beginning of last session has resolved completely after session. Currently ambs into session with 4WW with 0/10 pain. PT-OP-E Functional Tests Start: 12/15/24 12:03 Freq: Status: Active Protocol: Document 01/13/25 12:19 GG (Rec: 01/13/25 12:34 GG Laptop) Functional Tests 2 Minute Walk Test Distance 253 ft Device Used 4WW Comments continued walking after into 6MWT 6 Minute Walk Test Distance 338 ft Device Used 4WW Comments made it 2:46 before needing to sit 30 Second Sit to Stand Test Score 7x PT-OP-G Mobility & Gait Start: 12/13/24 10:32 Freq: Status: Active Protocol: Document 12/14/24 15:03 [facility] (Rec: 12/14/24 16:57 [facility] [id number]) OP Gait Assessment Comments Gait Comments fwd flexed w/4WW dec foot clearance PT-OP-J Posture/Palpation/Skin Start: 12/13/24 10:32 Freq: Status: Active Protocol: Document 12/14/24 15:03 [facility] (Rec: 12/14/24 16:57 [facility] [id number]) Posture Evaluation Comments Posture Comments fwd flexed w/inc kyphosis and fwd head, ant pelvic tilt , slightly bent knees PT-OP-M Strength Start: 12/13/24 10:32 Freq: Status: Active Protocol: Document 12/14/24 15:03 [facility] (Rec: 12/14/24 16:57 [facility] [id number]) Hip Strength Hip Manual Muscle Testing Right Flexion (L2) 3 Fair External Rotation 3+ Fair+ Internal Rotation 4- Good- Left Flexion (L2) 3 Fair External Rotation 4- Good- Internal Rotation 4- Good- Knee Strength Knee Manual Muscle Testing Right Flexion (S2) 4 Good Extension (L3) 4- Good- Left Flexion (S2) 4+ Good+ Extension (L3) 4- Good- Ankle/Foot Strength Ankle and Foot Manual Muscle Testing Right Dorsiflexion (L4) 4 Good Plantarflexion (S1) 4 Good Left Dorsiflexion (L4) 4 Good Plantarflexion (S1) 4 Good Comments PF tested seated PT-OP-Q Treatments Start: 12/13/24 10:32 Freq: Status: Active Protocol: Document 02/11/25 13:03 STUDENT OUTREACH COORDINATOR (Rec: 02/11/25 13:47 STUDENT OUTREACH COORDINATOR Laptop) Therapeutic Exercises Supine Exercises PPT Side bilateral Reps/Minutes x10 + x10 with 5s hold Comments no VC needed for breathing Sitting Exercises Clamshells Side bilateral Resistance L2 TB Reps/Minutes 10x2 Comments to activate glute med prior to balance exercise core warm up Sitting Exercise 1. Rotation crunch 2. Lateral leans without UEs Name Side bilateral Reps/Minutes 5x2 each side Standing Exercises Step ups Standing Exercise onto 4 step with B HR support Name Side bilateral Reps/Minutes 5 x2 each leg Comments noted hip drop on L Neuro Re-Education Treatment Balance Activities foam Details 1. side step onto 6 step 2. rhomberg stance EO/EC Surface foam Equipment HR for UE support Reps/Duration x10 each side Comments CGA, cues for upright posture. EO 30s, EC 16s+10s PT-OP-R Modalities Start: 12/13/24 10:32 Freq: Status: Active Protocol: Document 01/18/25 10:12 AB (Rec: 01/18/25 12:20 AB Laptop) Electric Stimulation Electric Stimulation Interferential Current (IFC) Body Location B paraspinals Intensity 25 Target/Sweep Target Patient Position Sitting Combined With Heat/ Hot Pack Cold Comments Interferential target X 15 min seated per patient's request PT-OP-T Assessment and Plan Start: 12/13/24 10:32 Freq: Status: Active Protocol: Document 02/11/25 13:03 STUDENT OUTREACH COORDINATOR (Rec: 02/11/25 13:47 STUDENT OUTREACH COORDINATOR Laptop) Physical Therapy Assessment Goals ELENA Impairment 48% Short Term Goal (STG Pt will improve ELENA score to no greater than 40% to ) show improved functional ability. 01/13 - did not get to STG Duration achieved 40% 01/18/2025 Head Charger Goal (LTG) Pt will improve ELENA score to no greater than 30% to show improved functional ability. LTG Duration 7/10 sit to stand Impairment 6 in 30 sec Short Term Goal (STG Pt will be able to do at least 8 sit to stands in 30 ) sec to show improve strength and dec risk for falls. 01/13 - improved; 7 in 30 sec STG Duration 01/28 Head Charger Goal (LTG) Pt will be able to do at least 10 sit to stands in 30 sec based on age related norms to show improve strength and dec risk for falls. LTG Duration 03/08 2 min walk Short Term Goal (STG Pt will do at least 350 ft in 2 min w/4WW ) 01/13 - still improving distance (253 ft) STG Duration 01/28 Fpc Goal (LTG) Pt will be able to tolerate full 6 min walk test 01/13 - tolerated 2:46 LTG Duration 03/08 Assessment Summary Assessment Pt tolerated all exercises this session with multiple rest breaks needed between exercises and reporting no pain throughout session. Physical Therapy Plan Frequency and Duration Frequency of 2x/Week Treatment Duration of 12 treatment (weeks) Plan of Care Start 12/14/24 Date Plan of Care End 03/08/25 Date Therapeutic Interventions Therapeutic Balance Training,Home Exercise Program,Joint Interventions Mobilizations,Manual Therapy,Neuromuscular Re-education ,Patient/Caregiver Education,Self-Care/Home Management, Soft Tissue Mobilization,Therapeutic Activities, Therapeutic Exercises Modalities Cold Pack/Ice Massage,Electric Stimulation,Hot Packs, Traction- Mechanical,Ultrasound Next Visit Focus/Plan Next Note Type Treatment Note Next Visit Plan standing balance and tolerance exercises, core exercises, manual to LB
--- NOTE | 2025-02-16 14:45 | PT.OTN ---
Addendum entered and electronically signed by Anabella Avila 02/17/25 09:35: Oswestry score 02/16/2025 54% Original Note: Current Diagnoses Morbid (severe) obesity due to excess calories (02/16/25) Other spondylosis with radiculopathy, lumbosacral region (02/16/25) Spondylosis without myelopathy or radiculopathy, lumbar region (02/16/25) Wedge compression fracture of first lumbar vertebra, initial encounter for closed fracture (02/16/25) Wedge compression fracture of third lumbar vertebra, initial encounter for closed fracture (02/16/25) Physical Therapy Treatment Note PT-OP-A Visit Information Start: 12/13/24 10:32 Freq: Status: Active Protocol: Document 02/16/25 13:39 AB (Rec: 02/16/25 14:42 AB Laptop) Out-Patient Physical Therapy Visit Information Visit Information Visit Type Treatment Note Visit Start Time 13:48 Visit Stop Time 14:30 Visit Number 16 Number of EDUCATION COORDINATOR Visits 1 PT-OP-B Current Condition Start: 12/13/24 10:32 Freq: Status: Active Protocol: Document 12/14/24 15:03 [facility] (Rec: 12/14/24 16:57 [facility] [id number]) Current Condition History of Current Condition Onset Date 10-12 years Current Complaints LBP, neuropathy History of Current Pt reports at the moment, she can sit w/o pain so can Condition sew. Cannot be on her feet for longer than about 1 min d/t pain in back. has neuropathy that gets bad enough that it is painful so she can't walk. Knees can give her issues. Pt is working w/Dr. Fofana and has not had success since injections and seems like the last one had inc pain in hip and feet. Sometimes feels like almost crumbles d/t her knees. Takes Gabapentin and doesn't feel like it does a lot except help her sleep a little better. DId PT last time with bike, Estim w/ heat, massage and some stretches and exercises and it helped. Pt reports she was playing golf, go for walks, do water aerobics then got to a point where she couldn 't make it to the 9th hole so had ot give it up. THat was 10 to 12 years ago. Denies injury. Typically, wakes at 4 and sits in recliner and sometimes sleeps again. walks w/cane in the house now and when leaves the house uses a 4WW Treatment Goals Patient/Caregiver Get exercises to work on, be able to walk (even short Goals walks w/walker) PT-OP-C Subjective Start: 12/13/24 10:32 Freq: Status: Active Protocol: Document 02/16/25 13:39 AB (Rec: 02/16/25 14:42 AB Laptop) OP-PT Subjective Patient Comments Patient Comments Patient reports feeling good about one more week left. Patient reports she has the daily thing down pretty good now (referring to HEP), has seen a big improvement in her ability to do things, doesn't need a wheelchair to get to mammogram now whereas previously had to use a wheelchair. Pt reports she is able to use reciprocal pattern ascending, but L knee she cannot due to fear of buckling. Patient reports Toshia fixed the pain in her hip that she got over the weekend. PT-OP-E Functional Tests Start: 12/15/24 12:03 Freq: Status: Active Protocol: Document 02/16/25 13:39 AB (Rec: 02/16/25 14:44 AB Laptop) Functional Tests 2 Minute Walk Test Distance 231 ft Device Used 4WW 6 Minute Walk Test Distance 631 ft Device Used 4WW 30 Second Sit to Stand Test Score 11 PT-OP-G Mobility & Gait Start: 12/13/24 10:32 Freq: Status: Active Protocol: Document 12/14/24 15:03 [facility] (Rec: 12/14/24 16:57 [facility] [id number]) OP Gait Assessment Comments Gait Comments fwd flexed w/4WW dec foot clearance PT-OP-J Posture/Palpation/Skin Start: 12/13/24 10:32 Freq: Status: Active Protocol: Document 12/14/24 15:03 [facility] (Rec: 12/14/24 16:57 [facility] [id number]) Posture Evaluation Comments Posture Comments fwd flexed w/inc kyphosis and fwd head, ant pelvic tilt , slightly bent knees PT-OP-M Strength Start: 12/13/24 10:32 Freq: Status: Active Protocol: Document 12/14/24 15:03 [facility] (Rec: 12/14/24 16:57 [facility] [id number]) Hip Strength Hip Manual Muscle Testing Right Flexion (L2) 3 Fair External Rotation 3+ Fair+ Internal Rotation 4- Good- Left Flexion (L2) 3 Fair External Rotation 4- Good- Internal Rotation 4- Good- Knee Strength Knee Manual Muscle Testing Right Flexion (S2) 4 Good Extension (L3) 4- Good- Left Flexion (S2) 4+ Good+ Extension (L3) 4- Good- Ankle/Foot Strength Ankle and Foot Manual Muscle Testing Right Dorsiflexion (L4) 4 Good Plantarflexion (S1) 4 Good Left Dorsiflexion (L4) 4 Good Plantarflexion (S1) 4 Good Comments PF tested seated PT-OP-Q Treatments Start: 12/13/24 10:32 Freq: Status: Active Protocol: Document 02/16/25 13:39 AB (Rec: 02/16/25 14:42 AB Laptop) Therapeutic Exercises Sitting Exercises seated hip IR AROM Reps/Minutes X 10 bilaterally Comments verbal and visual cues Clamshells Side bilateral Resistance L2 TB Reps/Minutes one min X 1 then X 15 without a hold Comments to activate glute med prior to balance exercise core warm up Sitting Exercise 1. rhythmic stabilization rot 2. Lateral leans without Name UEs 3 pillow push Reps/Minutes 5x2 each side each ex Standing Exercises Step ups Standing Exercise onto 6 step with B HR support Name Side bilateral Reps/Minutes 5 x2 each leg Comments noted hip drop on L PT-OP-R Modalities Start: 12/13/24 10:32 Freq: Status: Active Protocol: Document 01/18/25 10:12 AB (Rec: 01/18/25 12:20 AB Laptop) Electric Stimulation Electric Stimulation Interferential Current (IFC) Body Location B paraspinals Intensity 25 Target/Sweep Target Patient Position Sitting Combined With Heat/ Hot Pack Cold Comments Interferential target X 15 min seated per patient's request PT-OP-T Assessment and Plan Start: 12/13/24 10:32 Freq: Status: Active Protocol: Document 02/16/25 13:39 AB (Rec: 02/16/25 14:42 AB Laptop) Physical Therapy Assessment Goals ELENA Impairment 48% Short Term Goal (STG Pt will improve ELENA score to no greater than 40% to ) show improved functional ability. 01/13 - did not get to STG Duration achieved 40% 01/18/2025 Material Expeditor Goal (LTG) Pt will improve ELENA score to no greater than 30% to show improved functional ability. LTG Duration 7/10 sit to stand Impairment 6 in 30 sec Short Term Goal (STG Pt will be able to do at least 8 sit to stands in 30 ) sec to show improve strength and dec risk for falls. 01/13 - improved; 7 in 30 sec STG Duration 01/28 Material Expeditor Goal (LTG) Pt will be able to do at least 10 sit to stands in 30 sec based on age related norms to show improve strength and dec risk for falls. Sit to stand 11 x in 30 sec LTG Duration 03/08 MEt 2 min walk Short Term Goal (STG Pt will do at least 350 ft in 2 min w/4WW ) 01/13 - still improving distance (253 ft) STG Duration 01/28 Material Expeditor Goal (LTG) Pt will be able to tolerate full 6 min walk test 01/13 - tolerated 2:46 02/16/2025 - 2 min - 231 feet 6 min 631 feet LTG Duration 03/08 MET for LTG Assessment Summary Assessment Patient krish goals for 30 sec sit to stand and 2 & 6 min walk tests this session. SOB post walk test, reports having no back pain.. Patient has met LTG for sit to stand and walk tests. Patient would benefit from condensing/progressing HEP to prepare for discharge. Physical Therapy Plan Frequency and Duration Frequency of 2x/Week Treatment Duration of 12 treatment (weeks) Plan of Care Start 12/14/24 Date Plan of Care End 03/08/25 Date Therapeutic Interventions Therapeutic Balance Training,Home Exercise Program,Joint Interventions Mobilizations,Manual Therapy,Neuromuscular Re-education ,Patient/Caregiver Education,Self-Care/Home Management, Soft Tissue Mobilization,Therapeutic Activities, Therapeutic Exercises Modalities Cold Pack/Ice Massage,Electric Stimulation,Hot Packs, Traction- Mechanical,Ultrasound Next Visit Focus/Plan Next Note Type Treatment Note Next Visit Plan standing balance and tolerance exercises, core exercises, manual to LB
--- NOTE | 2025-02-16 17:36 | PT.OPPN ---
Current Diagnoses Morbid (severe) obesity due to excess calories (02/18/25) Other spondylosis with radiculopathy, lumbosacral region (02/18/25) Spondylosis without myelopathy or radiculopathy, lumbar region (02/18/25) Wedge compression fracture of first lumbar vertebra, initial encounter for closed fracture (02/18/25) Wedge compression fracture of third lumbar vertebra, initial encounter for closed fracture (02/18/25) Physical Therapy Progress Note PT-OP-A Visit Information Start: 12/13/24 10:32 Freq: Status: Active Protocol: Document 02/18/25 13:54 [employer] (Rec: 02/18/25 14:34 [employer] Laptop) Out-Patient Physical Therapy Visit Information Visit Information Visit Type Treatment Note Visit Start Time 13:48 Visit Stop Time 14:30 Visit Number 17 Number of BUSINESS SERVICES SALES AGENT Visits 0 PT-OP-B Current Condition Start: 12/13/24 10:32 Freq: Status: Active Protocol: Document 12/14/24 15:03 [facility] (Rec: 12/14/24 16:57 [facility] [id number]) Current Condition History of Current Condition Onset Date 10-12 years Current Complaints LBP, neuropathy History of Current Pt reports at the moment, she can sit w/o pain so can Condition sew. Cannot be on her feet for longer than about 1 min d/t pain in back. has neuropathy that gets bad enough that it is painful so she can't walk. Knees can give her issues. Pt is working w/Dr. Fofana and has not had success since injections and seems like the last one had inc pain in hip and feet. Sometimes feels like almost crumbles d/t her knees. Takes Gabapentin and doesn't feel like it does a lot except help her sleep a little better. DId PT last time with bike, Estim w/ heat, massage and some stretches and exercises and it helped. Pt reports she was playing golf, go for walks, do water aerobics then got to a point where she couldn 't make it to the 9th hole so had ot give it up. THat was 10 to 12 years ago. Denies injury. Typically, wakes at 4 and sits in recliner and sometimes sleeps again. walks w/cane in the house now and when leaves the house uses a 4WW Treatment Goals Patient/Caregiver Get exercises to work on, be able to walk (even short Goals walks w/walker) PT-OP-C Subjective Start: 12/13/24 10:32 Freq: Status: Active Protocol: Document 02/18/25 13:54 [employer] (Rec: 02/18/25 14:34 [employer]E COMPRESSOR OPER[employer] Laptop) OP-PT Subjective Patient Comments Patient Comments Pt amb into session with 4WW, reports 4/10 in B knees L >R d/t going to lunch with her family yesterday and walking longer distance in from car which she hasn't normally been able to do. Low back is /. Patient Reported Improving Progress PT-OP-E Functional Tests Start: 12/15/24 12:03 Freq: Status: Active Protocol: Document 02/16/25 13:39 AB (Rec: 02/16/25 14:44 AB Laptop) Functional Tests 2 Minute Walk Test Distance 231 ft Device Used 4WW 6 Minute Walk Test Distance 631 ft Device Used 4WW 30 Second Sit to Stand Test Score 11 PT-OP-G Mobility & Gait Start: 12/13/24 10:32 Freq: Status: Active Protocol: Document 12/14/24 15:03 [facility] (Rec: 12/14/24 16:57 [facility] [id number]) OP Gait Assessment Comments Gait Comments fwd flexed w/4WW dec foot clearance PT-OP-J Posture/Palpation/Skin Start: 12/13/24 10:32 Freq: Status: Active Protocol: Document 12/14/24 15:03 [facility] (Rec: 12/14/24 16:57 [facility] [id number]) Posture Evaluation Comments Posture Comments fwd flexed w/inc kyphosis and fwd head, ant pelvic tilt , slightly bent knees PT-OP-M Strength Start: 12/13/24 10:32 Freq: Status: Active Protocol: Document 12/14/24 15:03 [facility] (Rec: 12/14/24 16:57 [facility] [id number]) Hip Strength Hip Manual Muscle Testing Right Flexion (L2) 3 Fair External Rotation 3+ Fair+ Internal Rotation 4- Good- Left Flexion (L2) 3 Fair External Rotation 4- Good- Internal Rotation 4- Good- Knee Strength Knee Manual Muscle Testing Right Flexion (S2) 4 Good Extension (L3) 4- Good- Left Flexion (S2) 4+ Good+ Extension (L3) 4- Good- Ankle/Foot Strength Ankle and Foot Manual Muscle Testing Right Dorsiflexion (L4) 4 Good Plantarflexion (S1) 4 Good Left Dorsiflexion (L4) 4 Good Plantarflexion (S1) 4 Good Comments PF tested seated PT-OP-T Assessment and Plan Start: 12/13/24 10:32 Freq: Status: Active Protocol: Document 02/23/25 08:33 [facility] (Rec: 02/23/25 08:36 [facility] [id number]) Physical Therapy Assessment Goals ELENA Impairment 48% Short Term Goal (STG Pt will improve ELENA score to no greater than 40% to ) show improved functional ability. 01/13 - did not get to STG Duration achieved 40% 01/18/2025 Yarn Inspector Goal (LTG) Pt will improve ELENA score to no greater than 30% to show improved functional ability. 02/16-54% LTG Duration 7/10 sit to stand Impairment 6 in 30 sec Short Term Goal (STG Pt will be able to do at least 8 sit to stands in 30 ) sec to show improve strength and dec risk for falls. 01/13 - improved; 7 in 30 sec STG Duration goal met 02/16 11x Yarn Inspector Goal (LTG) Pt will be able to do at least 10 sit to stands in 30 sec based on age related norms to show improve strength and dec risk for falls. Sit to stand 11 x in 30 sec LTG Duration 7/8 MEt 2 min walk Short Term Goal (STG Pt will do at least 350 ft in 2 min w/4WW ) 01/13 - still improving distance (253 ft) STG Duration 30 Long-Term Goal (LTG) Pt will be able to tolerate full 6 min walk test 01/13 - tolerated 2:46 02/16/2025 - 2 min - 231 feet 6 min 631 feet LTG Duration 7/8 MET for LTG Assessment Summary Assessment pt making excellent progress w/PT and has improved strength and mobility overall. She would benefit from cont PT to solidify HEP and cont to advance mobility. Physical Therapy Plan Frequency and Duration Frequency of 2x/Week Treatment Duration of 12 treatment (weeks) Plan of Care Start 12/14/24 Date Plan of Care End 03/08/25 Date Therapeutic Interventions Therapeutic Balance Training,Home Exercise Program,Joint Interventions Mobilizations,Manual Therapy,Neuromuscular Re-education ,Patient/Caregiver Education,Self-Care/Home Management, Soft Tissue Mobilization,Therapeutic Activities, Therapeutic Exercises Modalities Cold Pack/Ice Massage,Electric Stimulation,Hot Packs, Traction- Mechanical,Ultrasound Next Visit Focus/Plan Next Note Type Treatment Note Next Visit Plan review HEP and plan for DC at end of month
--- NOTE | 2025-02-18 17:14 | PT.OTN ---
Current Diagnoses Morbid (severe) obesity due to excess calories (02/18/25) Other spondylosis with radiculopathy, lumbosacral region (02/18/25) Spondylosis without myelopathy or radiculopathy, lumbar region (02/18/25) Wedge compression fracture of first lumbar vertebra, initial encounter for closed fracture (02/18/25) Wedge compression fracture of third lumbar vertebra, initial encounter for closed fracture (02/18/25) Physical Therapy Treatment Note PT-OP-A Visit Information Start: 12/13/24 10:32 Freq: Status: Active Protocol: Document 02/18/25 13:54 [employer] (Rec: 02/18/25 14:34 [employer] PLAY[employer] Laptop) Out-Patient Physical Therapy Visit Information Visit Information Visit Type Treatment Note Visit Start Time 13:48 Visit Stop Time 14:30 Visit Number 17 Number of LICENSED PHYSICAL THERAPY ASSISTANT Visits 0 PT-OP-B Current Condition Start: 12/13/24 10:32 Freq: Status: Active Protocol: Document 12/14/24 15:03 [facility] (Rec: 12/14/24 16:57 [facility] [id number]) Current Condition History of Current Condition Onset Date 10-12 years Current Complaints LBP, neuropathy History of Current Pt reports at the moment, she can sit w/o pain so can Condition sew. Cannot be on her feet for longer than about 1 min d/t pain in back. has neuropathy that gets bad enough that it is painful so she can't walk. Knees can give her issues. Pt is working w/Dr. Fofana and has not had success since injections and seems like the last one had inc pain in hip and feet. Sometimes feels like almost crumbles d/t her knees. Takes Gabapentin and doesn't feel like it does a lot except help her sleep a little better. DId PT last time with bike, Estim w/ heat, massage and some stretches and exercises and it helped. Pt reports she was playing golf, go for walks, do water aerobics then got to a point where she couldn 't make it to the 9th hole so had ot give it up. THat was 10 to 12 years ago. Denies injury. Typically, wakes at 4 and sits in recliner and sometimes sleeps again. walks w/cane in the house now and when leaves the house uses a 4WW Treatment Goals Patient/Caregiver Get exercises to work on, be able to walk (even short Goals walks w/walker) PT-OP-C Subjective Start: 12/13/24 10:32 Freq: Status: Active Protocol: Document 02/18/25 13:54 [employer] (Rec: 02/18/25 14:34 [employer] PLAY[employer] Laptop) OP-PT Subjective Patient Comments Patient Comments Pt amb into session with 4WW, reports 4/10 in B knees L >R d/t going to lunch with her family yesterday and walking longer distance in from car which she hasn't normally been able to do. Low back is /. Patient Reported Improving Progress PT-OP-E Functional Tests Start: 12/15/24 12:03 Freq: Status: Active Protocol: Document 02/16/25 13:39 AB (Rec: 02/16/25 14:44 AB Laptop) Functional Tests 2 Minute Walk Test Distance 231 ft Device Used 4WW 6 Minute Walk Test Distance 631 ft Device Used 4WW 30 Second Sit to Stand Test Score 11 PT-OP-G Mobility & Gait Start: 12/13/24 10:32 Freq: Status: Active Protocol: Document 12/14/24 15:03 [facility] (Rec: 12/14/24 16:57 [facility] [id number]) OP Gait Assessment Comments Gait Comments fwd flexed w/4WW dec foot clearance PT-OP-J Posture/Palpation/Skin Start: 12/13/24 10:32 Freq: Status: Active Protocol: Document 12/14/24 15:03 [facility] (Rec: 12/14/24 16:57 [facility] [id number]) Posture Evaluation Comments Posture Comments fwd flexed w/inc kyphosis and fwd head, ant pelvic tilt , slightly bent knees PT-OP-M Strength Start: 12/13/24 10:32 Freq: Status: Active Protocol: Document 12/14/24 15:03 [facility] (Rec: 12/14/24 16:57 [facility] [id number]) Hip Strength Hip Manual Muscle Testing Right Flexion (L2) 3 Fair External Rotation 3+ Fair+ Internal Rotation 4- Good- Left Flexion (L2) 3 Fair External Rotation 4- Good- Internal Rotation 4- Good- Knee Strength Knee Manual Muscle Testing Right Flexion (S2) 4 Good Extension (L3) 4- Good- Left Flexion (S2) 4+ Good+ Extension (L3) 4- Good- Ankle/Foot Strength Ankle and Foot Manual Muscle Testing Right Dorsiflexion (L4) 4 Good Plantarflexion (S1) 4 Good Left Dorsiflexion (L4) 4 Good Plantarflexion (S1) 4 Good Comments PF tested seated PT-OP-Q Treatments Start: 12/13/24 10:32 Freq: Status: Active Protocol: Document 02/18/25 13:54 [employer] (Rec: 02/18/25 14:34 [employer] PLAYER Laptop) Cardio Equipment Recumbent Stepper (Sci-Fit) Duration (Minutes) 5 Resistance L1 Seat Position 9 Other for BUE and BLE warm up, no pain Manual Therapy Treatment Consent Patient gave verbal Yes consent for manual treatment Soft Tissue Mobilization Glute Med Body Position Supine Comments manual stretch of B glute med after standing balance activities Piriformis Body Position Supine Comments manual stretch to B piriformis after balance activities Neuro Re-Education Treatment Balance Activities foam Details semi tandem stance Surface foam Equipment // bars Reps/Duration L forward 19s, R forward 37s Comments without UE support, SBA SLS Details modified SLS with 6 toe taps Surface even Equipment in // bars Reps/Duration 5x2 each leg Comments x5 each leg with varying UE support x5 each leg without UE support at SBA PT-OP-R Modalities Start: 12/13/24 10:32 Freq: Status: Active Protocol: Document 01/18/25 10:12 AB (Rec: 01/18/25 12:20 AB Laptop) Electric Stimulation Electric Stimulation Interferential Current (IFC) Body Location B paraspinals Intensity 25 Target/Sweep Target Patient Position Sitting Combined With Heat/ Hot Pack Cold Comments Interferential target X 15 min seated per patient's request PT-OP-T Assessment and Plan Start: 12/13/24 10:32 Freq: Status: Active Protocol: Document 02/18/25 13:54 [employer] (Rec: 02/18/25 14:34 [employer] PLAY[employer] Laptop) Physical Therapy Assessment Impairments Impairments Activity Tolerance,Balance,Functional Activities, Functional Mobility,Gait,Pain,Posture,ROM,Soft Tissue Mobility,Strength,Transfers Goals ELENA Impairment 48% Short Term Goal (STG Pt will improve ELENA score to no greater than 40% to ) show improved functional ability. 01/13 - did not get to STG Duration achieved 40% 01/18/2025 Group Home Goal (LTG) Pt will improve ELENA score to no greater than 30% to show improved functional ability. LTG Duration 7/10 sit to stand Impairment 6 in 30 sec Short Term Goal (STG Pt will be able to do at least 8 sit to stands in 30 ) sec to show improve strength and dec risk for falls. 01/13 - improved; 7 in 30 sec STG Duration 01/28 Group Home Goal (LTG) Pt will be able to do at least 10 sit to stands in 30 sec based on age related norms to show improve strength and dec risk for falls. Sit to stand 11 x in 30 sec LTG Duration 03/08 MEt 2 min walk Short Term Goal (STG Pt will do at least 350 ft in 2 min w/4WW ) 01/13 - still improving distance (253 ft) STG Duration 01/28 Group Home Goal (LTG) Pt will be able to tolerate full 6 min walk test 01/13 - tolerated 2:46 02/16/2025 - 2 min - 231 feet 6 min 631 feet LTG Duration 78 MET for LTG Progress Towards Goals Progress Towards Progressing Toward Goals Goals Progress Comments improved SLS time, improved amb endurance reported by pt with outing with family yesterday, improved confidence with balance activity to perform 6 cone toe taps without UE support Assessment Summary Assessment Pt demonstrates improvements with SLS time, improved amb endurance reported by pt with outing with family yesterday, and improved confidence with balance activity to perform 6 cone toe taps without UE support . Glute med and piriformis stretch performed at end of session after balance training to prevent sciatic symptoms from tightness over the weekend. Would benefit from HEP including piriformis stretch to maintain ind at D/C coming up as well as HEP for standing balance activities. Physical Therapy Plan Frequency and Duration Frequency of 2x/Week Treatment Duration of 12 treatment (weeks) Plan of Care Start 12/14/24 Date Plan of Care End 03/08/25 Date Therapeutic Interventions Therapeutic Balance Training,Home Exercise Program,Joint Interventions Mobilizations,Manual Therapy,Neuromuscular Re-education ,Patient/Caregiver Education,Self-Care/Home Management, Soft Tissue Mobilization,Therapeutic Activities, Therapeutic Exercises Modalities Cold Pack/Ice Massage,Electric Stimulation,Hot Packs, Traction- Mechanical,Ultrasound Next Visit Focus/Plan Next Note Type Treatment Note Next Visit Plan standing balance HEP, piriformis stretch HEP
--- NOTE | 2025-02-23 17:52 | PT.OTN ---
Addendum entered and electronically signed by Jolly Addison, PT 02/24/25 08:39: PT direct supervision and direction to student PT Lise Layton throughout session Original Note: Current Diagnoses Morbid (severe) obesity due to excess calories (02/23/25) Other spondylosis with radiculopathy, lumbosacral region (02/23/25) Spondylosis without myelopathy or radiculopathy, lumbar region (02/23/25) Wedge compression fracture of first lumbar vertebra, initial encounter for closed fracture (02/23/25) Wedge compression fracture of third lumbar vertebra, initial encounter for closed fracture (02/23/25) Physical Therapy Treatment Note PT-OP-A Visit Information Start: 12/13/24 10:32 Freq: Status: Active Protocol: Document 02/23/25 15:03 GG (Rec: 02/23/25 16:03 GG [id number]) Out-Patient Physical Therapy Visit Information Visit Information Visit Type Treatment Note Visit Start Time 15:18 Visit Stop Time 16:00 Visit Number 18 Number of BOILER TESTING TECHNICIAN Visits 0 PT-OP-B Current Condition Start: 12/13/24 10:32 Freq: Status: Active Protocol: Document 12/14/24 15:03 [facility] (Rec: 12/14/24 16:57 [facility] [id number]) Current Condition History of Current Condition Onset Date 10-12 years Current Complaints LBP, neuropathy History of Current Pt reports at the moment, she can sit w/o pain so can Condition sew. Cannot be on her feet for longer than about 1 min d/t pain in back. has neuropathy that gets bad enough that it is painful so she can't walk. Knees can give her issues. Pt is working w/Dr. Fofana and has not had success since injections and seems like the last one had inc pain in hip and feet. Sometimes feels like almost crumbles d/t her knees. Takes Gabapentin and doesn't feel like it does a lot except help her sleep a little better. DId PT last time with bike, Estim w/ heat, massage and some stretches and exercises and it helped. Pt reports she was playing golf, go for walks, do water aerobics then got to a point where she couldn 't make it to the 9th hole so had ot give it up. THat was 10 to 12 years ago. Denies injury. Typically, wakes at 4 and sits in recliner and sometimes sleeps again. walks w/cane in the house now and when leaves the house uses a 4WW Treatment Goals Patient/Caregiver Get exercises to work on, be able to walk (even short Goals walks w/walker) PT-OP-C Subjective Start: 12/13/24 10:32 Freq: Status: Active Protocol: Document 02/23/25 15:03 GG (Rec: 02/23/25 16:03 GG [id number]) OP-PT Subjective Patient Comments Patient Comments Pt reports that she is more tired today because she was at the mall all yesterday and drove far to get there. Said she used a WC though. PT-OP-E Functional Tests Start: 12/15/24 12:03 Freq: Status: Active Protocol: Document 02/16/25 13:39 AB (Rec: 02/16/25 14:44 AB Laptop) Functional Tests 2 Minute Walk Test Distance 231 ft Device Used 4WW 6 Minute Walk Test Distance 631 ft Device Used 4WW 30 Second Sit to Stand Test Score 11 PT-OP-G Mobility & Gait Start: 12/13/24 10:32 Freq: Status: Active Protocol: Document 12/14/24 15:03 [facility] (Rec: 12/14/24 16:57 [facility] [id number]) OP Gait Assessment Comments Gait Comments fwd flexed w/4WW dec foot clearance PT-OP-J Posture/Palpation/Skin Start: 12/13/24 10:32 Freq: Status: Active Protocol: Document 12/14/24 15:03 [facility] (Rec: 12/14/24 16:57 [facility] [id number]) Posture Evaluation Comments Posture Comments fwd flexed w/inc kyphosis and fwd head, ant pelvic tilt , slightly bent knees PT-OP-M Strength Start: 12/13/24 10:32 Freq: Status: Active Protocol: Document 12/14/24 15:03 [facility] (Rec: 12/14/24 16:57 [facility] [id number]) Hip Strength Hip Manual Muscle Testing Right Flexion (L2) 3 Fair External Rotation 3+ Fair+ Internal Rotation 4- Good- Left Flexion (L2) 3 Fair External Rotation 4- Good- Internal Rotation 4- Good- Knee Strength Knee Manual Muscle Testing Right Flexion (S2) 4 Good Extension (L3) 4- Good- Left Flexion (S2) 4+ Good+ Extension (L3) 4- Good- Ankle/Foot Strength Ankle and Foot Manual Muscle Testing Right Dorsiflexion (L4) 4 Good Plantarflexion (S1) 4 Good Left Dorsiflexion (L4) 4 Good Plantarflexion (S1) 4 Good Comments PF tested seated PT-OP-Q Treatments Start: 12/13/24 10:32 Freq: Status: Active Protocol: Document 02/23/25 15:03 GG (Rec: 02/23/25 16:03 GG [id number]) Therapeutic Exercises Sitting Exercises Clamshells Side bilateral Resistance L2 TB Reps/Minutes one min X 1 then X 15 without a hold knee ext Resistance L3 Reps/Minutes x15 B hip add Sitting Exercise ball squeeze Name Reps/Minutes 25x Standing Exercises hip ext Standing Exercise leaning on railing Name Side bilateral Reps/Minutes 8x calf stretch Standing Exercise knee bent and straight Name Side bilateral Reps/Minutes 30sec ea hip abd Reps/Minutes 8x ea sit to stand Side bilateral Equipment Used L4 Reps/Minutes 15x Neuro Re-Education Treatment Balance Activities firm Comments staggered stance B 45s each PT-OP-R Modalities Start: 12/13/24 10:32 Freq: Status: Active Protocol: Document 01/18/25 10:12 AB (Rec: 01/18/25 12:20 AB Laptop) Electric Stimulation Electric Stimulation Interferential Current (IFC) Body Location B paraspinals Intensity 25 Target/Sweep Target Patient Position Sitting Combined With Heat/ Hot Pack Cold Comments Interferential target X 15 min seated per patient's request PT-OP-T Assessment and Plan Start: 12/13/24 10:32 Freq: Status: Active Protocol: Document 02/23/25 15:03 GG (Rec: 02/23/25 16:03 GG [id number]) Physical Therapy Assessment Goals ELENA Impairment 48% Short Term Goal (STG Pt will improve ELENA score to no greater than 40% to ) show improved functional ability. 01/13 - did not get to STG Duration achieved 40% 01/18/2025 Cellophaner Goal (LTG) Pt will improve ELENA score to no greater than 30% to show improved functional ability. LTG Duration 7/10 sit to stand Impairment 6 in 30 sec Short Term Goal (STG Pt will be able to do at least 8 sit to stands in 30 ) sec to show improve strength and dec risk for falls. 01/13 - improved; 7 in 30 sec STG Duration 01/28 Cellophaner Goal (LTG) Pt will be able to do at least 10 sit to stands in 30 sec based on age related norms to show improve strength and dec risk for falls. Sit to stand 11 x in 30 sec LTG Duration 7/8 MEt 2 min walk Short Term Goal (STG Pt will do at least 350 ft in 2 min w/4WW ) 01/13 - still improving distance (253 ft) STG Duration 01/28 Cellophaner Goal (LTG) Pt will be able to tolerate full 6 min walk test 01/13 - tolerated 2:46 02/16/2025 - 2 min - 231 feet 6 min 631 feet LTG Duration 7/8 MET for LTG Assessment Summary Assessment Pt demonstrates good understanding of HEP and is improving in endurance and overall core/LE strength. Focused on refining HEP for approaching DC and pt ed on ana m calderon class and progressing HEP at home. Physical Therapy Plan Frequency and Duration Frequency of 2x/Week Treatment Duration of 12 treatment (weeks) Plan of Care Start 12/14/24 Date Plan of Care End 03/08/25 Date Therapeutic Interventions Therapeutic Balance Training,Home Exercise Program,Joint Interventions Mobilizations,Manual Therapy,Neuromuscular Re-education ,Patient/Caregiver Education,Self-Care/Home Management, Soft Tissue Mobilization,Therapeutic Activities, Therapeutic Exercises Modalities Cold Pack/Ice Massage,Electric Stimulation,Hot Packs, Traction- Mechanical,Ultrasound Next Visit Focus/Plan Next Note Type Discharge Summary Next Visit Plan check on HEP and make sure good for DC, 2MWT and ELENA
--- NOTE | 2025-02-25 16:13 | PT.OTN ---
Current Diagnoses Morbid (severe) obesity due to excess calories (02/25/25) Other spondylosis with radiculopathy, lumbosacral region (02/25/25) Spondylosis without myelopathy or radiculopathy, lumbar region (02/25/25) Wedge compression fracture of first lumbar vertebra, initial encounter for closed fracture (02/25/25) Wedge compression fracture of third lumbar vertebra, initial encounter for closed fracture (02/25/25) Physical Therapy Treatment Note PT-OP-A Visit Information Start: 12/13/24 10:32 Freq: Status: Active Protocol: Document 02/25/25 14:35 AB (Rec: 02/25/25 16:13 AB Laptop) Out-Patient Physical Therapy Visit Information Visit Information Visit Type Treatment Note Visit Start Time 14:35 Visit Stop Time 15:15 Visit Number 19 Number of SECONDARY SCHOOL TEACHER Visits 1 PT-OP-B Current Condition Start: 12/13/24 10:32 Freq: Status: Active Protocol: Document 12/14/24 15:03 [facility] (Rec: 12/14/24 16:57 [facility] [id number]) Current Condition History of Current Condition Onset Date 10-12 years Current Complaints LBP, neuropathy History of Current Pt reports at the moment, she can sit w/o pain so can Condition sew. Cannot be on her feet for longer than about 1 min d/t pain in back. has neuropathy that gets bad enough that it is painful so she can't walk. Knees can give her issues. Pt is working w/Dr. Fofana and has not had success since injections and seems like the last one had inc pain in hip and feet. Sometimes feels like almost crumbles d/t her knees. Takes Gabapentin and doesn't feel like it does a lot except help her sleep a little better. DId PT last time with bike, Estim w/ heat, massage and some stretches and exercises and it helped. Pt reports she was playing golf, go for walks, do water aerobics then got to a point where she couldn 't make it to the 9th hole so had ot give it up. THat was 10 to 12 years ago. Denies injury. Typically, wakes at 4 and sits in recliner and sometimes sleeps again. walks w/cane in the house now and when leaves the house uses a 4WW Treatment Goals Patient/Caregiver Get exercises to work on, be able to walk (even short Goals walks w/walker) PT-OP-C Subjective Start: 12/13/24 10:32 Freq: Status: Active Protocol: Document 02/25/25 14:35 AB (Rec: 02/25/25 16:13 AB Laptop) OP-PT Subjective Patient Comments Patient Comments Patient reports knees continue to be a problem ie knee pain. Patient Questionnaires Oswestry Low Back Index Oswestry Score 18 36% Oswestry Impairment 20 to 39% Impaired (Score 20-39) PT-OP-E Functional Tests Start: 12/15/24 12:03 Freq: Status: Active Protocol: Document 02/16/25 13:39 AB (Rec: 02/16/25 14:44 AB Laptop) Functional Tests 2 Minute Walk Test Distance 231 ft Device Used 4WW 6 Minute Walk Test Distance 631 ft Device Used 4WW 30 Second Sit to Stand Test Score 11 PT-OP-G Mobility & Gait Start: 12/13/24 10:32 Freq: Status: Active Protocol: Document 12/14/24 15:03 [facility] (Rec: 12/14/24 16:57 [facility] [id number]) OP Gait Assessment Comments Gait Comments fwd flexed w/4WW dec foot clearance PT-OP-J Posture/Palpation/Skin Start: 12/13/24 10:32 Freq: Status: Active Protocol: Document 12/14/24 15:03 [facility] (Rec: 12/14/24 16:57 [facility] [id number]) Posture Evaluation Comments Posture Comments fwd flexed w/inc kyphosis and fwd head, ant pelvic tilt , slightly bent knees PT-OP-M Strength Start: 12/13/24 10:32 Freq: Status: Active Protocol: Document 12/14/24 15:03 [facility] (Rec: 12/14/24 16:57 [facility] [id number]) Hip Strength Hip Manual Muscle Testing Right Flexion (L2) 3 Fair External Rotation 3+ Fair+ Internal Rotation 4- Good- Left Flexion (L2) 3 Fair External Rotation 4- Good- Internal Rotation 4- Good- Knee Strength Knee Manual Muscle Testing Right Flexion (S2) 4 Good Extension (L3) 4- Good- Left Flexion (S2) 4+ Good+ Extension (L3) 4- Good- Ankle/Foot Strength Ankle and Foot Manual Muscle Testing Right Dorsiflexion (L4) 4 Good Plantarflexion (S1) 4 Good Left Dorsiflexion (L4) 4 Good Plantarflexion (S1) 4 Good Comments PF tested seated PT-OP-Q Treatments Start: 12/13/24 10:32 Freq: Status: Active Protocol: Document 02/25/25 14:35 AB (Rec: 02/25/25 16:13 AB Laptop) Cardio Equipment Recumbent Stepper (Sci-Fit) Duration (Minutes) 6 Resistance L1 Seat Position 9 Other for BUE and BLE warm up, no pain Therapeutic Exercises Sitting Exercises Clamshells Side bilateral Resistance L3 TB Reps/Minutes one min X 1 then X 15 without a hold AROM DF Side bilateral Resistance level one band HEP Reps/Minutes X10 without bandX 15 with band PT-OP-R Modalities Start: 12/13/24 10:32 Freq: Status: Active Protocol: Document 01/18/25 10:12 AB (Rec: 01/18/25 12:20 AB Laptop) Electric Stimulation Electric Stimulation Interferential Current (IFC) Body Location B paraspinals Intensity 25 Target/Sweep Target Patient Position Sitting Combined With Heat/ Hot Pack Cold Comments Interferential target X 15 min seated per patient's request PT-OP-T Assessment and Plan Start: 12/13/24 10:32 Freq: Status: Active Protocol: Document 02/25/25 14:35 AB (Rec: 02/25/25 16:13 AB Laptop) Physical Therapy Assessment Goals ELENA Impairment 48% Short Term Goal (STG Pt will improve ELENA score to no greater than 40% to ) show improved functional ability. 01/13 - did not get to STG Duration achieved 40% 01/18/2025 Retirement Goal (LTG) Pt will improve ELENA score to no greater than 30% to show improved functional ability. 02/25/2025 - ELENA to 36% made progress but goal not met LTG Duration 03/10 * 02/25/2025 - ELENA to 36% made progress but goal not met sit to stand Impairment 6 in 30 sec Short Term Goal (STG Pt will be able to do at least 8 sit to stands in 30 ) sec to show improve strength and dec risk for falls. 01/13 - improved; 7 in 30 sec Retirement Goal (LTG) Pt will be able to do at least 10 sit to stands in 30 sec based on age related norms to show improve strength and dec risk for falls. Sit to stand 11 x in 30 sec 02/25/2025 11 X in 30 sec with increased knee pain per patient 2 min walk Short Term Goal (STG Pt will do at least 350 ft in 2 min w/4WW ) 01/13 - still improving distance (253 ft) 02/25/2025 2 min walk test 274.8 feet with 4 wheeled walker STG Duration improved, but not met Contract Serviceman Goal (LTG) 02/25/2025 2 min walk test 274.8 feet with 4 wheeled walker LTG Duration 03/08 MET for LTG Assessment Summary Assessment Aline did make progress toward 2 min walk test, but did not meet goal. ELENA score improved, but termite control service representative goal not met. PT doesn't need additional HEP review, as you guys have done a great job training. Physical Therapy Plan Frequency and Duration Frequency of 2x/Week Treatment Duration of 12 treatment (weeks) Plan of Care Start 12/14/24 Date Plan of Care End 03/08/25 Date Next Visit Focus/Plan Next Note Type Discharge Summary Next Visit Plan Per PT Discharge this session.
--- NOTE | 2025-02-28 09:48 | PT.OPDS ---
Current Diagnoses Morbid (severe) obesity due to excess calories (02/25/25) Other spondylosis with radiculopathy, lumbosacral region (02/25/25) Spondylosis without myelopathy or radiculopathy, lumbar region (02/25/25) Wedge compression fracture of first lumbar vertebra, initial encounter for closed fracture (02/25/25) Wedge compression fracture of third lumbar vertebra, initial encounter for closed fracture (02/25/25) Visit Care Team Role Provider Type Dario Comer MD Family Provider Physician Primary Care Provider Specialty: Internal Medicine Address: [address] [place] [address], [facility], [place] [address], [address] Email: [email or web address] Dayday Fofana DO Attending Provider Physician Referring Provider Specialty: Interventional Radiology Physiatry Pain Management Address: [facility] [address] [place], [address] Email: [email or web address] Visit Number Visit Number [id number] Discharge Summary PT-OP-B Current Condition Start: 12/13/24 10:32 Freq: Status: Active Protocol: Document 12/14/24 15:03 [facility] (Rec: 12/14/24 16:57 [facility] [id number]) Current Condition History of Current Condition Onset Date 10-12 years Current Complaints LBP, neuropathy History of Current Pt reports at the moment, she can sit w/o pain so can Condition sew. Cannot be on her feet for longer than about 1 min d/t pain in back. has neuropathy that gets bad enough that it is painful so she can't walk. Knees can give her issues. Pt is working w/Dr. Fofana and has not had success since injections and seems like the last one had inc pain in hip and feet. Sometimes feels like almost crumbles d/t her knees. Takes Gabapentin and doesn't feel like it does a lot except help her sleep a little better. DId PT last time with bike, Estim w/ heat, massage and some stretches and exercises and it helped. Pt reports she was playing golf, go for walks, do water aerobics then got to a point where she couldn 't make it to the 9th hole so had ot give it up. THat was 10 to 12 years ago. Denies injury. Typically, wakes at 4 and sits in recliner and sometimes sleeps again. walks w/cane in the house now and when leaves the house uses a 4WW Treatment Goals Patient/Caregiver Get exercises to work on, be able to walk (even short Goals walks w/walker) PT-OP-C Subjective Start: 12/13/24 10:32 Freq: Status: Active Protocol: Document 02/25/25 14:35 AB (Rec: 02/25/25 16:13 AB Laptop) OP-PT Subjective Patient Comments Patient Comments Patient reports knees continue to be a problem ie knee pain. Patient Questionnaires Oswestry Low Back Index Oswestry Score 18 36% Oswestry Impairment 20 to 39% Impaired (Score 20-39) PT-OP-E Functional Tests Start: 12/15/24 12:03 Freq: Status: Active Protocol: Document 02/16/25 13:39 AB (Rec: 02/16/25 14:44 AB Laptop) Functional Tests 2 Minute Walk Test Distance 231 ft Device Used 4WW 6 Minute Walk Test Distance 631 ft Device Used 4WW 30 Second Sit to Stand Test Score 11 PT-OP-G Mobility & Gait Start: 12/13/24 10:32 Freq: Status: Active Protocol: Document 12/14/24 15:03 [facility] (Rec: 12/14/24 16:57 [facility] [id number]) OP Gait Assessment Comments Gait Comments fwd flexed w/4WW dec foot clearance PT-OP-J Posture/Palpation/Skin Start: 12/13/24 10:32 Freq: Status: Active Protocol: Document 12/14/24 15:03 [facility] (Rec: 12/14/24 16:57 [facility] [id number]) Posture Evaluation Comments Posture Comments fwd flexed w/inc kyphosis and fwd head, ant pelvic tilt , slightly bent knees PT-OP-M Strength Start: 12/13/24 10:32 Freq: Status: Active Protocol: Document 12/14/24 15:03 [facility] (Rec: 12/14/24 16:57 [facility] [id number]) Hip Strength Hip Manual Muscle Testing Right Flexion (L2) 3 Fair External Rotation 3+ Fair+ Internal Rotation 4- Good- Left Flexion (L2) 3 Fair External Rotation 4- Good- Internal Rotation 4- Good- Knee Strength Knee Manual Muscle Testing Right Flexion (S2) 4 Good Extension (L3) 4- Good- Left Flexion (S2) 4+ Good+ Extension (L3) 4- Good- Ankle/Foot Strength Ankle and Foot Manual Muscle Testing Right Dorsiflexion (L4) 4 Good Plantarflexion (S1) 4 Good Left Dorsiflexion (L4) 4 Good Plantarflexion (S1) 4 Good Comments PF tested seated PT-OP-T Assessment and Plan Start: 12/13/24 10:32 Freq: Status: Active Protocol: Document 02/28/25 09:38 [facility] (Rec: 02/28/25 09:48 [facility] [id number]) Physical Therapy Assessment Goals ELENA Impairment 48% Short Term Goal (STG Pt will improve ELENA score to no greater than 40% to ) show improved functional ability. 01/13 - did not get to STG Duration achieved 40% 01/18/2025 Assistant Community Director Goal (LTG) Pt will improve ELENA score to no greater than 30% to show improved functional ability. 02/25/2025 - ELENA to 36% made progress but goal not met LTG Duration 03/10 * 02/25/2025 - ELENA to 36% made progress but goal not met sit to stand Impairment 6 in 30 sec Short Term Goal (STG Pt will be able to do at least 8 sit to stands in 30 ) sec to show improve strength and dec risk for falls. 01/13 - improved; 7 in 30 sec STG Duration achieved Assistant Community Director Goal (LTG) Pt will be able to do at least 10 sit to stands in 30 sec based on age related norms to show improve strength and dec risk for falls. Sit to stand 11 x in 30 sec 02/25/2025 11 X in 30 sec with increased knee pain per patient LTG Duration achieved 2 min walk Short Term Goal (STG Pt will do at least 350 ft in 2 min w/4WW ) 01/13 - still improving distance (253 ft) 02/25/2025 2 min walk test 274.8 feet with 4 wheeled walker STG Duration improved, but not met Assistant Community Director Goal (LTG) 02/25/2025 2 min walk test 274.8 feet with 4 wheeled walker LTG Duration 03/08 MET for LTG Assessment Summary Assessment Pt met sit to stand goals, 6 min walk goal, improved w/ gait speed w/2 min walk and dec ELENA score showing functional improvement. Pt indep with HEP and is looking into community exercise classes to cont. dc at this time. Pt was ready to DC after visits last week. Physical Therapy Plan Discharge Physical Therapy Discharge Reasons Goals Met
== END 2025-03-07 11:23 | disposition home or self-care (01) ==
LOC: PHYS 14:30
PROVIDERS: Family Provider Internal Medicine; PCP Internal Medicine; Referring Provider Physical Medicine & Rehabilitation; Visit Provider Physical Medicine & Rehabilitation
DX: S32.010A Wedge compression fracture of first lumbar vertebra, initial encounter for closed fracture (principal); S32.030A Wedge compression fracture of third lumbar vertebra, initial encounter for closed fracture; M47.816 Spondylosis without myelopathy or radiculopathy, lumbar region; M47.27 Other spondylosis with radiculopathy, lumbosacral region; E66.01 Morbid (severe) obesity due to excess calories
CPT/HCPCS: 97014; 97110; 97112; 97140; 97162; 97535; G0283

== ENCOUNTER → 2025-08-02 09:32 | Outpatient (CLI) | payer MEDICARE, OTHER, SELFPAY ==
[2025-08-02 10:19] LABS: Hemoglobin A1C% w Est Avg Glu 6.7 % (4.0-6.0)
[2025-08-02 10:27] LABS: Alanine Aminotransferase 42 IU/L (<35); Albumin 4.3 g/dL (3.5-5.0); Albumin Globulin Ratio 1.3 (1.0-2.8); Alkaline Phosphatase 60 U/L (38-126); Blood Urea Nitrogen 22 mg/dL (7-17); Calcium 9.4 mg/dL (8.4-10.2); Carbon Dioxide 33 mmol/L (22-32); Chloride 98 mmol/L (98-107); Estimated Glomerular Filt Rate > 60 mL/min (>60); Globulin 3.2 g/dL (1.7-4.1); Glucose 138 mg/dL (70-99); HEMOLYSIS < 15 (0-50); Potassium 4.8 mmol/L (3.4-5.1); Sodium 139 mmol/L (137-145); Total Protein 7.5 g/dL (6.3-8.2)
== END ==
PROVIDERS: PCP Internal Medicine; Referring Provider Internal Medicine; Visit Provider Internal Medicine
DX: I10 Essential (primary) hypertension (principal); R73.9 Hyperglycemia, unspecified; K76.0 Fatty (change of) liver, not elsewhere classified
CPT/HCPCS: 36415; 80053; 83036